=== PATIENT | male | born 1945 | race African-American/Black ===

== ENCOUNTER 2019-08-14 11:26 | Inpatient (IN) | payer MEDICARE, MEDICAID ==
[2019-08-14] VITALS (15 sets, daily range): BP systolic 108–167; BP diastolic 77–107
[~2019-08-14] VITALS: Ht 180.3 cm; Wt 70.4 kg
[~2019-08-14 11:26] MED LIST: FURO-152 PO; METH5TAB2 PO
[2019-08-14] MEDS ORDERED: VANCOMYCIN 1 G PREMIX 200 ML IV ONE (12:00)
[2019-08-14] MEDS ORDERED: PIPERACILLIN/TAZ 3.375G PREMIX 50 ML IV ONE (12:00)
[2019-08-14 12:41] LABS: BG BASE EXCESS 5.4 mmol/L (-2.0-2.0); BG CARBOXYHEMOGLOBIN 0.2 % (0.5-1.5); BG DEOXYHEMOGLOBIN 19.3 % (0.0-5.0); BG FRACTION INSPIRED OXYGEN 28; BG HCO3 ACT 26.7 mmol/L (22.0-26.0); BG METHEMOGLOBIN 0.1 % (0.0-1.5); BG OXYGEN SATURATION 80.6 % (92.0-98.5); BG OXYHEMOGLOBIN 80.4 % (94.0-97.0); BG PCO2 29.1 mmHg (35.0-45.0); BG SAMPLE SITE RIGHT RADIAL; BG VENT MODE NASAL CANNULA
[2019-08-14] MEDS ORDERED: PROPOFOL 10MG/ML 100ML 100 ML IV SCH (13:00)
[2019-08-14] MEDS ORDERED: SUCCINYLCHOLINE CHLORIDE 200MG/10ML IV ONE (13:00)
[2019-08-14] MEDS ORDERED: ETOMIDATE 2MG/ML 10ML VIAL IV ONE (13:00)
[2019-08-14 13:16] LABS: CHLORIDE 109 mEq/L (98-107)
[2019-08-14 13:55] LABS: HEMATOCRIT. 44.8 % (42.0-52.0); HEMOGLOBIN. 15.2 g/dL (14.0-18.0); MEAN CORPUSCULAR HEMOGLOBIN 34.6 pg (28.0-32.0); MEAN CORPUSCULAR VOLUME 101.7 fL (80.0-94.0); RED BLOOD CELL COUNT 4.41 mill/uL (4.7-6.1); RED CELL DISTRIBUTION WIDTH 14.5 % (11.6-14.6)
[2019-08-14 14:00] LABS: PLATELET 178 x1000/uL (130-400)
[2019-08-14] MEDS ORDERED: MAGNESIUM 1 G PREMIX 100 ML IV ONE (14:00)
[2019-08-14] MEDS ORDERED: KCL 20MEQ/100ML PREMIX 100 ML IV ONE (14:00)
[2019-08-14] MEDS ORDERED: SODIUM CHLORIDE 0.9% 1000ML BAG (SEPSIS BOLUS) IV ONE (14:00)
[2019-08-14 14:01] LABS: MEAN PLATELET VOLUME 9.6 fl (7.4-10.4)
[2019-08-14 14:13] LABS: BG BASE EXCESS 1.5 mmol/L (-2.0-2.0); BG CARBOXYHEMOGLOBIN 0.1 % (0.5-1.5); BG DEOXYHEMOGLOBIN 9.7 % (0.0-5.0); BG FRACTION INSPIRED OXYGEN 60; BG HCO3 ACT 24.1 mmol/L (22.0-26.0); BG METHEMOGLOBIN 0.2 % (0.0-1.5); BG OXYGEN SATURATION 90.3 % (92.0-98.5); BG PCO2 31.8 mmHg (35.0-45.0); BG PH 7.497 (7.350-7.450); BG PO2 61.9 mmHg (75.0-100.0); BG SAMPLE SITE RIGHT BRACHIAL; BG TIDAL VOLUME(mL) 500 mL; BG TOTAL HEMOGLOBIN 13.5 g/dL (12.0-18.0); BG VENT MODE VENT - A/C; BG VENT RATE 16 set
[2019-08-14 14:14] LABS: PLATELET ESTIMATE NORMAL
[2019-08-14] MEDS ORDERED: METOCLOPRAMIDE HCL 10MG/2ML VIAL IV PRN (14:30)
[2019-08-14] MEDS ORDERED: POTASSIUM CHLORIDE 20MEQ TABLET SR PO NR (14:30)
[2019-08-14] MEDS ORDERED: FUROSEMIDE 40MG/4ML VIAL IVP SCH (14:30)
[2019-08-14 15:10] LABS: BG BASE EXCESS 0.4 mmol/L (-2.0-2.0); BG CARBOXYHEMOGLOBIN 0.3 % (0.5-1.5); BG DEOXYHEMOGLOBIN 2.2 % (0.0-5.0); BG FRACTION INSPIRED OXYGEN 100; BG HCO3 ACT 23.5 mmol/L (22.0-26.0); BG METHEMOGLOBIN 0.1 % (0.0-1.5); BG OXYGEN SATURATION 97.8 % (92.0-98.5); BG OXYHEMOGLOBIN 97.4 % (94.0-97.0); BG PCO2 32.9 mmHg (35.0-45.0); BG PH 7.471 (7.350-7.450); BG PO2 108.6 mmHg (75.0-100.0); BG SAMPLE SITE RIGHT BRACHIAL; BG TIDAL VOLUME(mL) 500 mL; BG TOTAL HEMOGLOBIN 12.5 g/dL (12.0-18.0); BG VENT MODE VENT - A/C; BG VENT RATE 18 set
[2019-08-14 15:24] LABS: CLARITY URINE CLEAR (CLEAR); COLOR URINE YELLOW (YELLOW); KETONES URINE NEGATIVE (NEGATIVE); LEUKOCYTE ESTERASE URINE 1+ (NEGATIVE); NITRITE URINE NEGATIVE (NEGATIVE); OCCULT BLOOD URINE 3+ (NEGATIVE); PROTEIN URINE 2+ (NEGATIVE); SPECIFIC GRAVITY URINE 1.021 (1.005-1.030)
[2019-08-14] MEDS: ASCORBIC ACID 500 MG TABLET PO SCH ×2 (15:30→21:57)
[2019-08-14] MEDS ORDERED: THIAMINE HCL 100MG TABLET PO SCH (17:00)
[2019-08-14] MEDS ORDERED: POTASSIUM CHLORIDE INJ 40 MEQ in DEXT 5% WATER 250 ML IV NR (18:00)
[2019-08-14] MEDS ORDERED: DIVA500T3 MT (20:58)
[2019-08-14] MEDS ORDERED: METH-611 MT (20:58)
[2019-08-14] MEDS ORDERED: SERT25TA MT (20:58)
[2019-08-14] MEDS ORDERED: ERGO2000 MT (20:58)
[2019-08-14] MEDS ORDERED: KEPP500 MT (20:58)
[2019-08-14] MEDS ORDERED: PROT40 MT (20:58)
[2019-08-14] MEDS ORDERED: DOCU250C69 MT (20:58)
[2019-08-14] MEDS ORDERED: QUET25TA MT (20:58)
[2019-08-14] MEDS ORDERED: ENOXAPARIN 40MG/0.4ML SYR SUBCUT SCH (21:00)
[2019-08-14] MEDS ORDERED: PROPOFOL 10MG/ML 100ML 100 ML IV PRN (21:00)
[2019-08-14] MEDS ORDERED: LEVETIRACETAM 500 MG in SODIUM CHLORIDE 0.9% 100 ML IV SCH (21:30)
[2019-08-14] MEDS ORDERED: AZITHROMYCIN 500 MG TABLET PO SCH (21:30)
[2019-08-14] MEDS: METHYLPREDNISOLONE SOD SUCC 40 MG/ML VIAL IV SCH (21:56)
[2019-08-14] MEDS: THIAMINE HCL 100MG TABLET PO SCH (21:56)
[2019-08-14] MEDS: LEVETIRACETAM 500MG PREMIX 100 ML IV SCH (22:06)
[2019-08-14] MEDS ORDERED: DEXT 5% WATER + KCL 20MEQ/L 1,000 ML IV SCH (22:30)
[2019-08-14] MEDS ORDERED: CEFTRIAXONE 1,000 MG in DEXTROSE 5% WATER 50 ML IV SCH (23:00)
[2019-08-15] VITALS (100 sets, daily range): BP systolic 91–180; BP diastolic 66–131
[2019-08-15] MEDS: HYDROXYCHLOROQUINE SULFATE 200MG TABLET PO SCH ×3 (00:03→21:48)
[2019-08-15 07:12] LABS: CHLORIDE 111 mEq/L (98-107)
[2019-08-15] MEDS: PANTOPRAZOLE SODIUM 40 MG/VIAL IV SCH (08:19)
[2019-08-15] MEDS: METHYLPREDNISOLONE SOD SUCC 40 MG/ML VIAL IV SCH ×2 (08:20→21:48)
[2019-08-15] MEDS: LEVETIRACETAM 500MG PREMIX 100 ML IV SCH ×2 (08:20→21:48)
[2019-08-15] MEDS: ENOXAPARIN 40MG/0.4ML SYR SUBCUT SCH (08:20)
[2019-08-15] MEDS: ASCORBIC ACID 500 MG TABLET PO SCH (08:21)
[2019-08-15] MEDS: THIAMINE HCL 100MG TABLET PO SCH ×2 (08:21→17:49)
[2019-08-15] MEDS: ZINC SULFATE 220 MG ( 50 ) CAPSULE PO SCH (08:21)
[2019-08-15] MEDS ORDERED: ZINC SULFATE 220 MG ( 50 ) CAPSULE PO SCH (09:00)
[2019-08-15] MEDS ORDERED: POTASSIUM CHLORIDE 20MEQ/PACKET PO NR (09:45)
[2019-08-15] MEDS ORDERED: PROPOFOL 10MG/ML 100ML 100 ML IV PRN (09:45)
[2019-08-15 09:46] LABS: BG BASE EXCESS 1.8 mmol/L (-2.0-2.0); BG CARBOXYHEMOGLOBIN 0.2 % (0.5-1.5); BG DEOXYHEMOGLOBIN 1.2 % (0.0-5.0); BG FRACTION INSPIRED OXYGEN 100; BG HCO3 ACT 24.7 mmol/L (22.0-26.0); BG METHEMOGLOBIN 0.3 % (0.0-1.5); BG OXYGEN SATURATION 98.8 % (92.0-98.5); BG OXYHEMOGLOBIN 98.3 % (94.0-97.0); BG PCO2 32.6 mmHg (35.0-45.0); BG PH 7.497 (7.350-7.450); BG PO2 162.1 mmHg (75.0-100.0); BG SAMPLE SITE RIGHT RADIAL; BG TIDAL VOLUME(mL) 500 mL; BG TOTAL HEMOGLOBIN 11.2 g/dL (12.0-18.0); BG VENT MODE VENT - A/C; BG VENT RATE 18 set
[2019-08-15 10:08] LABS: HEMATOCRIT. 31.7 % (42.0-52.0); HEMOGLOBIN. 10.6 g/dL (14.0-18.0); MEAN CORPUSCULAR HEMOGLOBIN 35.4 pg (28.0-32.0); MEAN PLATELET VOLUME 9.8 fl (7.4-10.4); PLATELET 135 x1000/uL (130-400); RED BLOOD CELL COUNT 2.99 mill/uL (4.7-6.1); RED CELL DISTRIBUTION WIDTH 14.7 % (11.6-14.6)
[2019-08-15 10:47] LABS: D-DIMER 3.52 mg/L FEU (<0.50); INR 1.3; PARTIAL THROMBOPLASTIN TIME 42.9 sec (23.4-31.0); PROTHROMBIN TIME 13.9 sec (9.6-11.0)
[2019-08-15] MEDS ORDERED: POTASSIUM CHLORIDE 20MEQ/PACKET PO SCH ×2 (11:15→17:00)
[2019-08-15 11:53] LABS: PLATELET ESTIMATE NORMAL
[2019-08-15] MEDS: CEFTRIAXONE 1,000 MG in DEXTROSE 5% WATER 50 ML IV SCH (17:49)
[2019-08-15] MEDS: METOPROLOL TARTRATE 25MG TABLET PO SCH (21:43)
[2019-08-15] MEDS ORDERED: DEXT 5% WATER + KCL 20MEQ/L 1,000 ML IV SCH (22:30)
[2019-08-15] MEDS: CLONIDINE 0.1MG TABLET PO PRN (22:47)
[2019-08-16] VITALS (97 sets, daily range): BP systolic 79–186; BP diastolic 51–131
[2019-08-16] MEDS: ACETAMINOPHEN 325MG TABLET PO PRN ×2 (03:02→16:28)
[2019-08-16] MEDS: CLONIDINE 0.1MG TABLET PO PRN (04:54)
[2019-08-16] MEDS: PROPOFOL 10MG/ML 100ML 100 ML IV PRN ×3 (05:11→18:30)
[2019-08-16 06:24] LABS: CHLORIDE 107 mEq/L (98-107)
[2019-08-16 06:33] LABS: PHOSPHORUS 4.3 mg/dL (2.5-4.9)
[2019-08-16 07:32] LABS: HEMATOCRIT. 35.5 % (42.0-52.0); HEMOGLOBIN. 12.3 g/dL (14.0-18.0); MEAN CORPUSCULAR HEMOGLOBIN 36.1 pg (28.0-32.0); PLATELET 266 x1000/uL (130-400); RED BLOOD CELL COUNT 3.41 mill/uL (4.7-6.1); RED CELL DISTRIBUTION WIDTH 14.9 % (11.6-14.6)
[2019-08-16] MEDS: LEVETIRACETAM 500MG PREMIX 100 ML IV SCH ×2 (08:31→21:03)
[2019-08-16] MEDS: METHYLPREDNISOLONE SOD SUCC 40 MG/ML VIAL IV SCH ×2 (08:32→21:03)
[2019-08-16] MEDS: PANTOPRAZOLE SODIUM 40 MG/VIAL IV SCH (08:32)
[2019-08-16] MEDS: HYDROXYCHLOROQUINE SULFATE 200MG TABLET PO SCH ×2 (08:33→16:28)
[2019-08-16] MEDS: METOPROLOL TARTRATE 25MG TABLET PO SCH ×2 (08:33→21:04)
[2019-08-16] MEDS: ZINC SULFATE 220 MG ( 50 ) CAPSULE PO SCH (08:34)
[2019-08-16] MEDS: ASCORBIC ACID 500 MG TABLET PO SCH (08:34)
[2019-08-16] MEDS: THIAMINE HCL 100MG TABLET PO SCH ×2 (08:34→16:28)
[2019-08-16] MEDS: LISINOPRIL 20MG TABLET PO SCH ×2 (08:35→21:04)
[2019-08-16] MEDS: ENOXAPARIN 40MG/0.4ML SYR SUBCUT SCH (08:35)
[2019-08-16 08:54] LABS: BG BASE EXCESS -6.9 mmol/L (-2.0-2.0); BG CARBOXYHEMOGLOBIN 0.2 % (0.5-1.5); BG DEOXYHEMOGLOBIN 0.3 % (0.0-5.0); BG HCO3 ACT 16.6 mmol/L (22.0-26.0); BG OXYGEN SATURATION 99.7 % (92.0-98.5); BG OXYHEMOGLOBIN 99.5 % (94.0-97.0); BG PCO2 28.3 mmHg (35.0-45.0); BG PH 7.387 (7.350-7.450); BG SAMPLE SITE RIGHT RADIAL; BG TIDAL VOLUME(mL) 500 mL; BG TOTAL HEMOGLOBIN 13.3 g/dL (12.0-18.0); BG VENT MODE VENT - A/C; BG VENT RATE 14 set
[2019-08-16] MEDS ORDERED: AMLODIPINE 5MG TABLET PO SCH (09:00)
[2019-08-16] MEDS: HYDRALAZINE 20MG/ML VIAL IV PRN (10:39)
[2019-08-16] MEDS: SODIUM CHLORIDE 0.45% 1,000 ML IV SCH (10:40)
[2019-08-16 11:55] LABS: PLATELET ESTIMATE NORMAL
[2019-08-16] MEDS: AMLODIPINE 5MG TABLET NG SCH (16:30)
[2019-08-16] MEDS: CEFTRIAXONE 1,000 MG in DEXTROSE 5% WATER 50 ML IV SCH (17:00)
[2019-08-17] VITALS (94 sets, daily range): BP systolic 92–168; BP diastolic 51–113
[2019-08-17] MEDS: SODIUM CHLORIDE 0.45% 1,000 ML IV SCH ×2 (00:41→09:19)
[2019-08-17] MEDS: PROPOFOL 10MG/ML 100ML 100 ML IV PRN ×4 (00:48→20:42)
[2019-08-17 06:48] LABS: HEMATOCRIT. 35.8 % (42.0-52.0); HEMOGLOBIN. 11.8 g/dL (14.0-18.0); MEAN CORPUSCULAR HEMOGLOBIN 33.2 pg (28.0-32.0); MEAN CORPUSCULAR VOLUME 100.3 fL (80.0-94.0); PLATELET 195 x1000/uL (130-400); RED BLOOD CELL COUNT 3.57 mill/uL (4.7-6.1); RED CELL DISTRIBUTION WIDTH 14.9 % (11.6-14.6)
[2019-08-17] MEDS: HYDRALAZINE 20MG/ML VIAL IV PRN (07:30)
[2019-08-17] MEDS: HYDROXYCHLOROQUINE SULFATE 200MG TABLET PO SCH ×2 (09:14→17:31)
[2019-08-17] MEDS: METHYLPREDNISOLONE SOD SUCC 40 MG/ML VIAL IV SCH ×2 (09:14→21:17)
[2019-08-17] MEDS: ASCORBIC ACID 500 MG TABLET PO SCH (09:14)
[2019-08-17] MEDS: ZINC SULFATE 220 MG ( 50 ) CAPSULE PO SCH (09:14)
[2019-08-17] MEDS: PANTOPRAZOLE SODIUM 40 MG/VIAL IV SCH (09:14)
[2019-08-17] MEDS: THIAMINE HCL 100MG TABLET PO SCH ×2 (09:15→17:31)
[2019-08-17] MEDS: ENOXAPARIN 40MG/0.4ML SYR SUBCUT SCH (09:16)
[2019-08-17] MEDS: AMLODIPINE 5MG TABLET NG SCH ×2 (09:16→17:00)
[2019-08-17] MEDS: METOPROLOL TARTRATE 25MG TABLET PO SCH ×2 (09:17→21:00)
[2019-08-17] MEDS: LEVETIRACETAM 500MG PREMIX 100 ML IV SCH ×2 (09:19→21:17)
[2019-08-17 09:51] LABS: PLATELET ESTIMATE NORMAL
[2019-08-17 10:13] LABS: BG BASE EXCESS -5.9 mmol/L (-2.0-2.0); BG CARBOXYHEMOGLOBIN 0.3 % (0.5-1.5); BG DEOXYHEMOGLOBIN 0.7 % (0.0-5.0); BG FRACTION INSPIRED OXYGEN 60; BG HCO3 ACT 18.5 mmol/L (22.0-26.0); BG METHEMOGLOBIN 0.1 % (0.0-1.5); BG OXYGEN SATURATION 99.3 % (92.0-98.5); BG OXYHEMOGLOBIN 98.9 % (94.0-97.0); BG PCO2 32.8 mmHg (35.0-45.0); BG PH 7.368 (7.350-7.450); BG PO2 278.7 mmHg (75.0-100.0); BG SAMPLE SITE RIGHT RADIAL; BG TIDAL VOLUME(mL) 500 mL; BG TOTAL HEMOGLOBIN 12.5 g/dL (12.0-18.0); BG VENT MODE VENT - A/C; BG VENT RATE 14 set
[2019-08-17] MEDS: HYDRALAZINE HCL 50MG TABLET PO SCH ×2 (14:00→22:00)
[2019-08-17 17:25] LABS: COVID-19 PCR RNA DETECTED
[2019-08-17 17:27] LABS: COVID-19 PCR RNA NOT DETECTED
[2019-08-17] MEDS: CEFTRIAXONE 1,000 MG in DEXTROSE 5% WATER 50 ML IV SCH (17:31)
[2019-08-18] VITALS (93 sets, daily range): BP systolic 99–146; BP diastolic 55–87
[2019-08-18] MEDS: SODIUM CHLORIDE 0.45% 1,000 ML IV SCH ×2 (02:01→13:20)
[2019-08-18] MEDS: PROPOFOL 10MG/ML 100ML 100 ML IV PRN (05:00)
[2019-08-18] MEDS: HYDRALAZINE HCL 50MG TABLET PO SCH ×3 (06:00→21:01)
[2019-08-18 06:11] LABS: HEMATOCRIT. 35.6 % (42.0-52.0); MEAN CORPUSCULAR HEMOGLOBIN 33.6 pg (28.0-32.0); MEAN CORPUSCULAR VOLUME 99.8 fL (80.0-94.0); PLATELET 184 x1000/uL (130-400); RED BLOOD CELL COUNT 3.57 mill/uL (4.7-6.1)
[2019-08-18 08:00] LABS: PLATELET ESTIMATE NORMAL
[2019-08-18 08:08] LABS: BG BASE EXCESS -8.8 mmol/L (-2.0-2.0); BG CARBOXYHEMOGLOBIN 0.3 % (0.5-1.5); BG DEOXYHEMOGLOBIN 2.2 % (0.0-5.0); BG FRACTION INSPIRED OXYGEN 35; BG HCO3 ACT 17.8 mmol/L (22.0-26.0); BG METHEMOGLOBIN 0.1 % (0.0-1.5); BG OXYGEN SATURATION 97.8 % (92.0-98.5); BG OXYHEMOGLOBIN 97.4 % (94.0-97.0); BG PCO2 40.7 mmHg (35.0-45.0); BG PH 7.258 (7.350-7.450); BG PO2 128.2 mmHg (75.0-100.0); BG SAMPLE SITE RIGHT RADIAL; BG TIDAL VOLUME(mL) 450 mL; BG TOTAL HEMOGLOBIN 13.3 g/dL (12.0-18.0); BG VENT MODE VENT - A/C; BG VENT RATE 18 set
[2019-08-18] MEDS: HYDROXYCHLOROQUINE SULFATE 200MG TABLET PO SCH ×2 (08:39→17:05)
[2019-08-18] MEDS: METHYLPREDNISOLONE SOD SUCC 40 MG/ML VIAL IV SCH (08:39)
[2019-08-18] MEDS: ZINC SULFATE 220 MG ( 50 ) CAPSULE PO SCH (08:39)
[2019-08-18] MEDS: ASCORBIC ACID 500 MG TABLET PO SCH (08:39)
[2019-08-18] MEDS: PANTOPRAZOLE SODIUM 40 MG/VIAL IV SCH (08:39)
[2019-08-18] MEDS: METOPROLOL TARTRATE 25MG TABLET PO SCH ×2 (08:40→21:01)
[2019-08-18] MEDS: THIAMINE HCL 100MG TABLET PO SCH ×2 (08:40→17:05)
[2019-08-18] MEDS: ENOXAPARIN 30MG/0.3ML SYR SUBCUT SCH (08:40)
[2019-08-18] MEDS: AMLODIPINE 5MG TABLET NG SCH ×2 (08:40→17:05)
[2019-08-18] MEDS: LEVETIRACETAM 500MG PREMIX 100 ML IV SCH ×2 (08:46→21:01)
[2019-08-18] MEDS ORDERED: SODIUM BICARBONATE 8.4% 1 MEQ/ML 50ML SYR IV NR (09:15)
[2019-08-18] MEDS ORDERED: ALBUMIN HUMAN 12.5G/250ML (5%) IV NR (09:30)
[2019-08-18] MEDS ORDERED: PROPOFOL 10MG/ML 100ML 100 ML IV PRN (10:15)
[2019-08-18] MEDS: CEFTRIAXONE 1,000 MG in DEXTROSE 5% WATER 50 ML IV SCH (17:05)
[2019-08-19] VITALS (92 sets, daily range): BP systolic 76–126; BP diastolic 43–80
[2019-08-19] MEDS: SODIUM CHLORIDE 0.45% 1,000 ML IV SCH (01:58)
[2019-08-19] MEDS: HYDRALAZINE HCL 50MG TABLET PO SCH (05:24)
[2019-08-19 07:18] LABS: HEMATOCRIT. 32.5 % (42.0-52.0); HEMOGLOBIN. 11.7 g/dL (14.0-18.0); MEAN CORPUSCULAR HEMOGLOBIN 37.6 pg (28.0-32.0); MEAN CORPUSCULAR VOLUME 104.6 fL (80.0-94.0); MEAN PLATELET VOLUME 10.6 fl (7.4-10.4); PLATELET 188 x1000/uL (130-400); RED CELL DISTRIBUTION WIDTH 14.8 % (11.6-14.6)
[2019-08-19] MEDS: PANTOPRAZOLE SODIUM 40 MG/VIAL IV SCH (08:01)
[2019-08-19] MEDS: LEVETIRACETAM 500MG PREMIX 100 ML IV SCH ×2 (08:01→20:49)
[2019-08-19] MEDS: THIAMINE HCL 100MG TABLET PO SCH ×2 (08:03→17:08)
[2019-08-19] MEDS: ENOXAPARIN 30MG/0.3ML SYR SUBCUT SCH (08:03)
[2019-08-19] MEDS: HYDROXYCHLOROQUINE SULFATE 200MG TABLET PO SCH (08:03)
[2019-08-19] MEDS: ASCORBIC ACID 500 MG TABLET PO SCH (08:03)
[2019-08-19] MEDS: ZINC SULFATE 220 MG ( 50 ) CAPSULE PO SCH (08:03)
[2019-08-19] MEDS: AMLODIPINE 5MG TABLET NG SCH (08:08)
[2019-08-19] MEDS: METOPROLOL TARTRATE 25MG TABLET PO SCH (08:09)
[2019-08-19 08:29] LABS: BG BASE EXCESS -3.2 mmol/L (-2.0-2.0); BG CARBOXYHEMOGLOBIN 0.3 % (0.5-1.5); BG DEOXYHEMOGLOBIN 2.2 % (0.0-5.0); BG FRACTION INSPIRED OXYGEN 35; BG HCO3 ACT 20.9 mmol/L (22.0-26.0); BG METHEMOGLOBIN 0.1 % (0.0-1.5); BG OXYGEN SATURATION 97.8 % (92.0-98.5); BG OXYHEMOGLOBIN 97.4 % (94.0-97.0); BG PCO2 34.4 mmHg (35.0-45.0); BG PH 7.401 (7.350-7.450); BG PO2 118.3 mmHg (75.0-100.0); BG SAMPLE SITE RIGHT RADIAL; BG TIDAL VOLUME(mL) 450 mL; BG TOTAL HEMOGLOBIN 13.6 g/dL (12.0-18.0); BG VENT MODE VENT - A/C; BG VENT RATE 18 set
[2019-08-19] MEDS: FENTANYL CITRATE/PF 500 MCG in SODIUM CHLORIDE 0.9% 40 ML IV PRN ×2 (09:00→20:50)
[2019-08-19] MEDS ORDERED: ALBUMIN HUMAN 12.5G/250ML (5%) IV NR (12:00)
[2019-08-19 14:12] LABS: PLATELET ESTIMATE NORMAL
[2019-08-19] MEDS: CEFTRIAXONE 1,000 MG in DEXTROSE 5% WATER 50 ML IV SCH (17:08)
[2019-08-20] VITALS (60 sets, daily range): BP systolic 86–159; BP diastolic 51–90
[2019-08-20] MEDS ORDERED: METOPROLOL TARTRATE 5MG/5ML VIAL IV NR (03:30)
[2019-08-20 05:43] LABS: BASOPHILS % 0.3 % (0.0-2.0); EOSINOPHILS % 0.1 % (0.0-5.0); HEMATOCRIT. 30.7 % (42.0-52.0); HEMOGLOBIN. 11.3 g/dL (14.0-18.0); LYMPHOCYTES % 7.9 % (20.0-50.0); MEAN CORPUSCULAR HEMOGLOBIN 38.7 pg (28.0-32.0); MEAN CORPUSCULAR VOLUME 105.3 fL (80.0-94.0); MONOCYTES % 9.2 % (2.0-8.0); NEUTROPHILS % 82.5 % (40.0-76.0); PLATELET 208 x1000/uL (130-400); RED BLOOD CELL COUNT 2.92 mill/uL (4.7-6.1); RED CELL DISTRIBUTION WIDTH 14.7 % (11.6-14.6)
[2019-08-20] MEDS: METOPROLOL TARTRATE 5MG/5ML VIAL IV SCH ×3 (06:40→22:38)
[2019-08-20 08:18] LABS: BG BASE EXCESS -0.7 mmol/L (-2.0-2.0); BG CARBOXYHEMOGLOBIN 0.3 % (0.5-1.5); BG DEOXYHEMOGLOBIN 1.5 % (0.0-5.0); BG HCO3 ACT 22.6 mmol/L (22.0-26.0); BG METHEMOGLOBIN 0.3 % (0.0-1.5); BG OXYGEN SATURATION 98.5 % (92.0-98.5); BG OXYHEMOGLOBIN 97.9 % (94.0-97.0); BG PCO2 32.4 mmHg (35.0-45.0); BG PH 7.462 (7.350-7.450); BG PO2 140.9 mmHg (75.0-100.0); BG SAMPLE SITE RIGHT RADIAL; BG TIDAL VOLUME(mL) 450 mL; BG TOTAL HEMOGLOBIN 10.1 g/dL (12.0-18.0); BG VENT MODE VENT - A/C; BG VENT RATE 18 set
[2019-08-20] MEDS: LEVETIRACETAM 500MG PREMIX 100 ML IV SCH ×2 (08:59→22:00)
[2019-08-20] MEDS: THIAMINE HCL 100MG TABLET PO SCH ×2 (09:00→16:12)
[2019-08-20] MEDS: ASCORBIC ACID 500 MG TABLET PO SCH (09:00)
[2019-08-20] MEDS: PANTOPRAZOLE SODIUM 40 MG/VIAL IV SCH (09:00)
[2019-08-20] MEDS: ZINC SULFATE 220 MG ( 50 ) CAPSULE PO SCH (09:00)
[2019-08-20] MEDS: ENOXAPARIN 30MG/0.3ML SYR SUBCUT SCH (09:01)
[2019-08-20] MEDS: FENTANYL CITRATE/PF 500 MCG in SODIUM CHLORIDE 0.9% 40 ML IV PRN (10:49)
[2019-08-20 20:58] LABS: BG BASE EXCESS -0.5 mmol/L (-2.0-2.0); BG CARBOXYHEMOGLOBIN 0.3 % (0.5-1.5); BG DEOXYHEMOGLOBIN 3.4 % (0.0-5.0); BG FRACTION INSPIRED OXYGEN 35; BG HCO3 ACT 22.3 mmol/L (22.0-26.0); BG METHEMOGLOBIN 1.2 % (0.0-1.5); BG OXYGEN SATURATION 96.5 % (92.0-98.5); BG OXYHEMOGLOBIN 95.1 % (94.0-97.0); BG PCO2 30.4 mmHg (35.0-45.0); BG PH 7.484 (7.350-7.450); BG PO2 99.7 mmHg (75.0-100.0); BG PRESSURE SUPPORT 12; BG SAMPLE SITE RIGHT RADIAL; BG TIDAL VOLUME(mL) 450 mL; BG TOTAL HEMOGLOBIN 10.6 g/dL (12.0-18.0); BG VENT MODE VENT - SIMV; BG VENT RATE 10 set
[2019-08-21] VITALS (88 sets, daily range): BP systolic 98–169; BP diastolic 59–119
[2019-08-21] MEDS: HYDRALAZINE 20MG/ML VIAL IV PRN ×2 (00:05→16:46)
[2019-08-21] MEDS: FENTANYL CITRATE/PF 500 MCG in SODIUM CHLORIDE 0.9% 40 ML IV PRN ×2 (05:33→13:41)
[2019-08-21] MEDS: METOPROLOL TARTRATE 5MG/5ML VIAL IV SCH ×3 (06:05→22:57)
[2019-08-21] MEDS: ZINC SULFATE 220 MG ( 50 ) CAPSULE PO SCH (08:51)
[2019-08-21] MEDS: THIAMINE HCL 100MG TABLET PO SCH ×2 (08:51→16:46)
[2019-08-21] MEDS: ASCORBIC ACID 500 MG TABLET PO SCH (08:51)
[2019-08-21] MEDS: ENOXAPARIN 30MG/0.3ML SYR SUBCUT SCH (08:52)
[2019-08-21] MEDS: PANTOPRAZOLE SODIUM 40 MG/VIAL IV SCH (08:52)
[2019-08-21] MEDS: LEVETIRACETAM 500MG PREMIX 100 ML IV SCH ×2 (08:52→21:19)
[2019-08-21 09:35] LABS: BG BASE EXCESS -2.3 mmol/L (-2.0-2.0); BG CARBOXYHEMOGLOBIN 0.3 % (0.5-1.5); BG DEOXYHEMOGLOBIN 1.4 % (0.0-5.0); BG FRACTION INSPIRED OXYGEN 35; BG HCO3 ACT 20.9 mmol/L (22.0-26.0); BG METHEMOGLOBIN 0.2 % (0.0-1.5); BG OXYGEN SATURATION 98.6 % (92.0-98.5); BG OXYHEMOGLOBIN 98.1 % (94.0-97.0); BG PCO2 30.6 mmHg (35.0-45.0); BG PH 7.452 (7.350-7.450); BG PO2 140.4 mmHg (75.0-100.0); BG SAMPLE SITE RIGHT RADIAL; BG TIDAL VOLUME(mL) 450 mL; BG TOTAL HEMOGLOBIN 11.2 g/dL (12.0-18.0); BG VENT MODE VENT - A/C; BG VENT RATE 18 set
[2019-08-21] MEDS ORDERED: POTASSIUM CHLORIDE 20MEQ TABLET SR PO SCH (11:00)
[2019-08-22] VITALS (96 sets, daily range): BP systolic 99–167; BP diastolic 61–103
[2019-08-22] MEDS: FENTANYL CITRATE/PF 500 MCG in SODIUM CHLORIDE 0.9% 40 ML IV PRN (01:11)
[2019-08-22] MEDS: METOPROLOL TARTRATE 5MG/5ML VIAL IV SCH ×3 (05:42→21:22)
[2019-08-22 05:52] LABS: BASOPHILS % 0.1 % (0.0-2.0); EOSINOPHILS % 0.6 % (0.0-5.0); HEMATOCRIT. 27.9 % (42.0-52.0); HEMOGLOBIN. 10.1 g/dL (14.0-18.0); LYMPHOCYTES % 7.6 % (20.0-50.0); MEAN CORPUSCULAR HEMOGLOBIN 38.4 pg (28.0-32.0); MEAN CORPUSCULAR VOLUME 106.4 fL (80.0-94.0); MEAN PLATELET VOLUME 10.6 fl (7.4-10.4); MONOCYTES % 5.9 % (2.0-8.0); NEUTROPHILS % 85.8 % (40.0-76.0); PLATELET 90 x1000/uL (130-400); RED BLOOD CELL COUNT 2.62 mill/uL (4.7-6.1); RED CELL DISTRIBUTION WIDTH 14.7 % (11.6-14.6)
[2019-08-22] MEDS: PANTOPRAZOLE SODIUM 40 MG/VIAL IV SCH (08:28)
[2019-08-22] MEDS: ASCORBIC ACID 500 MG TABLET PO SCH (08:28)
[2019-08-22] MEDS: ZINC SULFATE 220 MG ( 50 ) CAPSULE PO SCH (08:28)
[2019-08-22] MEDS: LEVETIRACETAM 500MG PREMIX 100 ML IV SCH ×2 (08:28→21:21)
[2019-08-22] MEDS: THIAMINE HCL 100MG TABLET PO SCH ×2 (08:28→17:22)
[2019-08-22 10:06] LABS: BG BASE EXCESS -1.9 mmol/L (-2.0-2.0); BG CARBOXYHEMOGLOBIN 0.3 % (0.5-1.5); BG DEOXYHEMOGLOBIN 1.2 % (0.0-5.0); BG FRACTION INSPIRED OXYGEN 35; BG HCO3 ACT 20.8 mmol/L (22.0-26.0); BG METHEMOGLOBIN 0.3 % (0.0-1.5); BG OXYGEN SATURATION 98.8 % (92.0-98.5); BG OXYHEMOGLOBIN 98.2 % (94.0-97.0); BG PCO2 28.6 mmHg (35.0-45.0); BG PO2 149.9 mmHg (75.0-100.0); BG PRESSURE SUPPORT 12; BG SAMPLE SITE RIGHT RADIAL; BG TIDAL VOLUME(mL) 500 mL; BG TOTAL HEMOGLOBIN 10.3 g/dL (12.0-18.0); BG VENT MODE VENT - SIMV; BG VENT RATE 8 set
[2019-08-22] MEDS: ENOXAPARIN 30MG/0.3ML SYR SUBCUT SCH (11:44)
[2019-08-22 15:48] LABS: BG BASE EXCESS -1.9 mmol/L (-2.0-2.0); BG CARBOXYHEMOGLOBIN 0.3 % (0.5-1.5); BG DEOXYHEMOGLOBIN 2.6 % (0.0-5.0); BG FRACTION INSPIRED OXYGEN 30; BG HCO3 ACT 20.1 mmol/L (22.0-26.0); BG METHEMOGLOBIN 0.3 % (0.0-1.5); BG OXYGEN SATURATION 97.4 % (92.0-98.5); BG OXYHEMOGLOBIN 96.8 % (94.0-97.0); BG PCO2 26.6 mmHg (35.0-45.0); BG PH 7.497 (7.350-7.450); BG PO2 100.3 mmHg (75.0-100.0); BG PRESSURE SUPPORT 8; BG SAMPLE SITE RIGHT RADIAL; BG TOTAL HEMOGLOBIN 11.5 g/dL (12.0-18.0); BG VENT MODE VENT - CPAP
[2019-08-22] MEDS: SODIUM CHLORIDE 0.45% 1,000 ML IV SCH (17:26)
[2019-08-23] VITALS (68 sets, daily range): BP systolic 115–172; BP diastolic 64–101
[2019-08-23] MEDS: HYDRALAZINE 20MG/ML VIAL IV PRN (00:20)
[2019-08-23] MEDS: METOPROLOL TARTRATE 5MG/5ML VIAL IV SCH ×3 (06:46→21:35)
[2019-08-23 06:58] LABS: HEMATOCRIT. 29.8 % (42.0-52.0); HEMOGLOBIN. 10.4 g/dL (14.0-18.0); MEAN CORPUSCULAR HEMOGLOBIN 36.6 pg (28.0-32.0); MEAN CORPUSCULAR VOLUME 104.6 fL (80.0-94.0); MEAN PLATELET VOLUME 11.7 fl (7.4-10.4); PLATELET 103 x1000/uL (130-400); RED BLOOD CELL COUNT 2.85 mill/uL (4.7-6.1); RED CELL DISTRIBUTION WIDTH 15.4 % (11.6-14.6)
[2019-08-23] MEDS: SODIUM CHLORIDE 0.45% 1,000 ML IV SCH (08:18)
[2019-08-23] MEDS: LEVETIRACETAM 500MG PREMIX 100 ML IV SCH ×2 (09:00→20:48)
[2019-08-23] MEDS: ENOXAPARIN 30MG/0.3ML SYR SUBCUT SCH (09:01)
[2019-08-23] MEDS: PANTOPRAZOLE SODIUM 40 MG/VIAL IV SCH (09:02)
[2019-08-23] MEDS: THIAMINE HCL 100MG TABLET PO SCH ×2 (09:03→16:56)
[2019-08-23] MEDS: ASCORBIC ACID 500 MG TABLET PO SCH (09:03)
[2019-08-23] MEDS: ZINC SULFATE 220 MG ( 50 ) CAPSULE PO SCH (09:03)
[2019-08-23 09:33] LABS: PLATELET ESTIMATE SLIGHTLY DECREASED
[2019-08-24] VITALS (52 sets, daily range): BP systolic 111–197; BP diastolic 63–126
[2019-08-24] MEDS: METOPROLOL TARTRATE 5MG/5ML VIAL IV SCH (06:02)
[2019-08-24 06:24] LABS: HEMOGLOBIN. 10.2 g/dL (14.0-18.0); MEAN CORPUSCULAR HEMOGLOBIN 36.7 pg (28.0-32.0); MEAN CORPUSCULAR VOLUME 104.9 fL (80.0-94.0); MEAN PLATELET VOLUME 11.8 fl (7.4-10.4); PLATELET 95 x1000/uL (130-400); RED BLOOD CELL COUNT 2.77 mill/uL (4.7-6.1)
[2019-08-24] MEDS: ASCORBIC ACID 500 MG TABLET PO SCH (09:50)
[2019-08-24] MEDS: PANTOPRAZOLE SODIUM 40 MG/VIAL IV SCH (09:50)
[2019-08-24] MEDS: THIAMINE HCL 100MG TABLET PO SCH ×2 (09:50→17:00)
[2019-08-24] MEDS: ENOXAPARIN 30MG/0.3ML SYR SUBCUT SCH (09:51)
[2019-08-24] MEDS: ACETAMINOPHEN 325MG TABLET PO PRN (09:52)
[2019-08-24] MEDS: ZINC SULFATE 220 MG ( 50 ) CAPSULE PO SCH (10:01)
[2019-08-24] MEDS: LEVETIRACETAM 500MG PREMIX 100 ML IV SCH ×2 (10:05→20:34)
[2019-08-24 10:09] LABS: NUCLEATED RED BLOOD CELLS 1 /100 WBC; PLATELET ESTIMATE DECREASED
[2019-08-24] MEDS ORDERED: METOPROLOL TARTRATE 5MG/5ML VIAL IV PRN (15:00)
[2019-08-24] MEDS: CLONIDINE 0.1MG TABLET PO PRN (17:18)
[2019-08-24] MEDS: METOPROLOL TARTRATE 25MG TABLET PO SCH (19:13)
[2019-08-24] MEDS: HYDRALAZINE 20MG/ML VIAL IV PRN (20:34)
[2019-08-25] VITALS (11 sets, daily range): BP systolic 126–154; BP diastolic 78–91
[2019-08-25 06:37] LABS: BASOPHILS % 0.4 % (0.0-2.0); HEMATOCRIT. 32.1 % (42.0-52.0); HEMOGLOBIN. 10.9 g/dL (14.0-18.0); LYMPHOCYTES % 8.6 % (20.0-50.0); MEAN CORPUSCULAR HEMOGLOBIN 35.3 pg (28.0-32.0); MEAN CORPUSCULAR VOLUME 104.1 fL (80.0-94.0); MEAN PLATELET VOLUME 11.4 fl (7.4-10.4); MONOCYTES % 7.3 % (2.0-8.0); NEUTROPHILS % 83.7 % (40.0-76.0); PLATELET 88 x1000/uL (130-400); RED BLOOD CELL COUNT 3.09 mill/uL (4.7-6.1); RED CELL DISTRIBUTION WIDTH 16.1 % (11.6-14.6)
[2019-08-25] MEDS: ENOXAPARIN 30MG/0.3ML SYR SUBCUT SCH (09:00)
[2019-08-25] MEDS: ASCORBIC ACID 500 MG TABLET PO SCH (09:12)
[2019-08-25] MEDS: THIAMINE HCL 100MG TABLET PO SCH ×2 (09:12→16:48)
[2019-08-25] MEDS: METOPROLOL TARTRATE 25MG TABLET PO SCH ×2 (09:12→21:43)
[2019-08-25] MEDS: ZINC SULFATE 220 MG ( 50 ) CAPSULE PO SCH (09:12)
[2019-08-25] MEDS: PANTOPRAZOLE SODIUM 40 MG/VIAL IV SCH (09:12)
[2019-08-25] MEDS: LEVETIRACETAM 500MG PREMIX 100 ML IV SCH ×2 (09:14→21:42)
[2019-08-25 22:03] LABS: BASOPHILS % 0.5 % (0.0-2.0); EOSINOPHILS % 0.1 % (0.0-5.0); HEMATOCRIT. 32.3 % (42.0-52.0); HEMOGLOBIN. 10.8 g/dL (14.0-18.0); LYMPHOCYTES % 7.9 % (20.0-50.0); MEAN CORPUSCULAR HEMOGLOBIN 35.2 pg (28.0-32.0); MEAN CORPUSCULAR VOLUME 105.1 fL (80.0-94.0); MEAN PLATELET VOLUME 11.8 fl (7.4-10.4); MONOCYTES % 6.8 % (2.0-8.0); NEUTROPHILS % 84.7 % (40.0-76.0); PLATELET 84 x1000/uL (130-400); RED BLOOD CELL COUNT 3.08 mill/uL (4.7-6.1); RED CELL DISTRIBUTION WIDTH 16.5 % (11.6-14.6)
[2019-08-26] VITALS: BP 150/87
[2019-08-26 04:00] VITALS: BP 146/92
[2019-08-26 08:00] VITALS: BP 139/81
[2019-08-26] MEDS: ENOXAPARIN 30MG/0.3ML SYR SUBCUT SCH (09:00)
[2019-08-26] MEDS: ZINC SULFATE 220 MG ( 50 ) CAPSULE PO SCH (09:45)
[2019-08-26] MEDS: PANTOPRAZOLE SODIUM 40 MG/VIAL IV SCH (09:45)
[2019-08-26] MEDS: LEVETIRACETAM 500MG PREMIX 100 ML IV SCH ×2 (09:45→21:45)
[2019-08-26] MEDS: METOPROLOL TARTRATE 25MG TABLET PO SCH ×2 (09:45→21:44)
[2019-08-26] MEDS: ASCORBIC ACID 500 MG TABLET PO SCH (09:45)
[2019-08-26 12:00] VITALS: BP_SYST 119; BP_SYST 138; BP_DIAS 81; BP_DIAS 89
[2019-08-26 20:00] VITALS: BP 118/70
[2019-08-27] VITALS: BP 124/58
[2019-08-27 04:00] VITALS: BP 150/90
[2019-08-27] MEDS: ASCORBIC ACID 500 MG TABLET PO SCH (10:16)
[2019-08-27] MEDS: ZINC SULFATE 220 MG ( 50 ) CAPSULE PO SCH (10:16)
[2019-08-27] MEDS: LEVETIRACETAM 500MG PREMIX 100 ML IV SCH ×2 (10:16→20:53)
[2019-08-27] MEDS: PANTOPRAZOLE SODIUM 40 MG/VIAL IV SCH (10:17)
[2019-08-27] MEDS: ENOXAPARIN 30MG/0.3ML SYR SUBCUT SCH (10:17)
[2019-08-27] MEDS: METOPROLOL TARTRATE 25MG TABLET PO SCH ×2 (10:20→20:49)
[2019-08-27 12:00] VITALS: BP 135/79
[2019-08-27 13:11] LABS: BASOPHILS % 0.4 % (0.0-2.0); EOSINOPHILS % 0.1 % (0.0-5.0); HEMATOCRIT. 29.9 % (42.0-52.0); HEMOGLOBIN. 10.1 g/dL (14.0-18.0); LYMPHOCYTES % 10.6 % (20.0-50.0); MEAN CORPUSCULAR HEMOGLOBIN 35.3 pg (28.0-32.0); MEAN CORPUSCULAR VOLUME 104.7 fL (80.0-94.0); MEAN PLATELET VOLUME 12.4 fl (7.4-10.4); MONOCYTES % 6.5 % (2.0-8.0); NEUTROPHILS % 82.4 % (40.0-76.0); PLATELET 67 x1000/uL (130-400); RED BLOOD CELL COUNT 2.86 mill/uL (4.7-6.1); RED CELL DISTRIBUTION WIDTH 17.6 % (11.6-14.6)
[2019-08-27 16:00] VITALS: BP 168/91
[2019-08-27] MEDS: HYDRALAZINE 20MG/ML VIAL IV PRN (17:02)
[2019-08-27 20:45] VITALS: BP 107/67
[2019-08-28 00:17] VITALS: BP 111/66
[2019-08-28 04:00] VITALS: BP 135/84
[2019-08-28 08:00] VITALS: BP 124/78
[2019-08-28] MEDS: ASCORBIC ACID 500 MG TABLET PO SCH (09:32)
[2019-08-28] MEDS: ZINC SULFATE 220 MG ( 50 ) CAPSULE PO SCH (09:32)
[2019-08-28] MEDS: LEVETIRACETAM 500MG PREMIX 100 ML IV SCH ×2 (09:33→20:54)
[2019-08-28] MEDS: PANTOPRAZOLE SODIUM 40 MG/VIAL IV SCH (09:33)
[2019-08-28] MEDS: METOPROLOL TARTRATE 25MG TABLET PO SCH ×2 (09:33→20:54)
[2019-08-28] MEDS: LACTULOSE 20G/30ML UDC PO SCH ×2 (14:00→21:06)
[2019-08-28 16:00] VITALS: BP 132/78
[2019-08-28 20:00] VITALS: BP 159/89
[2019-08-29] VITALS (7 sets, daily range): BP systolic 128–176; BP diastolic 71–99
[2019-08-29] MEDS: LACTULOSE 20G/30ML UDC PO SCH ×3 (05:33→21:19)
[2019-08-29] MEDS: DEXTROSE 5% WATER 1,000 ML IV SCH ×2 (05:37→23:47)
[2019-08-29] MEDS: METOPROLOL TARTRATE 25MG TABLET PO SCH ×2 (09:00→21:19)
[2019-08-29] MEDS: ZINC SULFATE 220 MG ( 50 ) CAPSULE PO SCH (09:00)
[2019-08-29] MEDS: ASCORBIC ACID 500 MG TABLET PO SCH (09:00)
[2019-08-29] MEDS: PANTOPRAZOLE SODIUM 40 MG/VIAL IV SCH (09:04)
[2019-08-29] MEDS: LEVETIRACETAM 500MG PREMIX 100 ML IV SCH ×2 (09:11→21:19)
[2019-08-29 09:50] LABS: BASOPHILS % 0.7 % (0.0-2.0); EOSINOPHILS % 1.7 % (0.0-5.0); HEMATOCRIT. 33.9 % (42.0-52.0); HEMOGLOBIN. 11.1 g/dL (14.0-18.0); LYMPHOCYTES % 12.9 % (20.0-50.0); MEAN CORPUSCULAR HEMOGLOBIN 34.8 pg (28.0-32.0); MEAN CORPUSCULAR VOLUME 106.5 fL (80.0-94.0); MEAN PLATELET VOLUME 11.7 fl (7.4-10.4); MONOCYTES % 3.8 % (2.0-8.0); NEUTROPHILS % 80.9 % (40.0-76.0); PLATELET 59 x1000/uL (130-400); RED BLOOD CELL COUNT 3.19 mill/uL (4.7-6.1); RED CELL DISTRIBUTION WIDTH 18.3 % (11.6-14.6)
[2019-08-29 10:27] LABS: PLATELET ESTIMATE DECREASED
[2019-08-29] MEDS ORDERED: IPRATROPIUM/ALBUTEROL 0.5-3(2.5)MG/3ML NEB HHN PRN (12:45)
[2019-08-29] MEDS ORDERED: PIPERACILLIN/TAZOBACTAM 3.375 G in DEXT 5% WATER 100 ML IV SCH (12:45)
[2019-08-29] MEDS: PIPERACILLIN/TAZOBACTAM 2.25 G in DEXTROSE 5% WATER 50 ML IV SCH ×2 (15:19→21:24)
[2019-08-29] MEDS: ACETYLCYSTEINE 100MG/ML 10% VIAL 4ML INH SCH (17:01)
[2019-08-29] MEDS: IPRATROPIUM/ALBUTEROL 0.5-3(2.5)MG/3ML NEB HHN SCH (17:01)
[2019-08-29] MEDS: HYDRALAZINE 20MG/ML VIAL IV PRN (23:47)
[2019-08-30] MEDS: ACETYLCYSTEINE 100MG/ML 10% VIAL 4ML INH SCH ×4 (01:02→21:46)
[2019-08-30] MEDS: IPRATROPIUM/ALBUTEROL 0.5-3(2.5)MG/3ML NEB HHN SCH ×4 (01:02→21:47)
[2019-08-30] MEDS: PIPERACILLIN/TAZOBACTAM 2.25 G in DEXTROSE 5% WATER 50 ML IV SCH ×4 (01:35→20:09)
[2019-08-30 04:00] VITALS: BP 159/88
[2019-08-30] MEDS: LACTULOSE 20G/30ML UDC PO SCH ×3 (05:20→21:02)
[2019-08-30 08:00] VITALS: BP 127/68
[2019-08-30] MEDS: PANTOPRAZOLE SODIUM 40 MG/VIAL IV SCH (08:36)
[2019-08-30] MEDS: LEVETIRACETAM 500MG PREMIX 100 ML IV SCH ×2 (08:36→20:09)
[2019-08-30] MEDS: METOPROLOL TARTRATE 25MG TABLET PO SCH ×2 (08:36→21:02)
[2019-08-30] MEDS: ZINC SULFATE 220 MG ( 50 ) CAPSULE PO SCH (08:36)
[2019-08-30] MEDS: ASCORBIC ACID 500 MG TABLET PO SCH (08:36)
[2019-08-30 11:55] LABS: BASOPHILS % 1.3 % (0.0-2.0); EOSINOPHILS % 2.8 % (0.0-5.0); HEMATOCRIT. 29.7 % (42.0-52.0); HEMOGLOBIN. 9.8 g/dL (14.0-18.0); LYMPHOCYTES % 16.2 % (20.0-50.0); MEAN CORPUSCULAR HEMOGLOBIN 34.2 pg (28.0-32.0); MEAN CORPUSCULAR VOLUME 103.9 fL (80.0-94.0); MEAN PLATELET VOLUME 11.7 fl (7.4-10.4); MONOCYTES % 5.7 % (2.0-8.0); PLATELET 53 x1000/uL (130-400); RED BLOOD CELL COUNT 2.86 mill/uL (4.7-6.1); RED CELL DISTRIBUTION WIDTH 18.5 % (11.6-14.6)
[2019-08-30 12:00] VITALS: BP 134/81
[2019-08-30 16:00] VITALS: BP 157/79
[2019-08-30 20:00] VITALS: BP 124/73
[2019-08-30] MEDS: DEXTROSE 5% WATER 1,000 ML IV SCH (21:03)
[2019-08-31] VITALS: BP 139/84
[2019-08-31] MEDS: PIPERACILLIN/TAZOBACTAM 2.25 G in DEXTROSE 5% WATER 50 ML IV SCH ×4 (01:51→20:17)
[2019-08-31 04:00] VITALS: BP 136/75
[2019-08-31] MEDS: LACTULOSE 20G/30ML UDC PO SCH ×3 (05:15→18:00)
[2019-08-31] MEDS: ACETYLCYSTEINE 100MG/ML 10% VIAL 4ML INH SCH ×3 (07:40→23:40)
[2019-08-31] MEDS: IPRATROPIUM/ALBUTEROL 0.5-3(2.5)MG/3ML NEB HHN SCH ×3 (07:40→23:40)
[2019-08-31 08:00] VITALS: BP 151/79
[2019-08-31 08:41] LABS: BASOPHILS % 0.8 % (0.0-2.0); EOSINOPHILS % 4.2 % (0.0-5.0); HEMATOCRIT. 33.2 % (42.0-52.0); LYMPHOCYTES % 12.3 % (20.0-50.0); MEAN CORPUSCULAR VOLUME 105.6 fL (80.0-94.0); MEAN PLATELET VOLUME 11.6 fl (7.4-10.4); MONOCYTES % 3.7 % (2.0-8.0); RED BLOOD CELL COUNT 3.14 mill/uL (4.7-6.1); RED CELL DISTRIBUTION WIDTH 17.8 % (11.6-14.6)
[2019-08-31] MEDS: ASCORBIC ACID 500 MG TABLET PO SCH (09:12)
[2019-08-31] MEDS: ZINC SULFATE 220 MG ( 50 ) CAPSULE PO SCH (09:12)
[2019-08-31] MEDS: METOPROLOL TARTRATE 25MG TABLET PO SCH ×2 (09:12→20:18)
[2019-08-31] MEDS: LEVETIRACETAM 500MG PREMIX 100 ML IV SCH ×2 (09:17→20:17)
[2019-08-31] MEDS: PANTOPRAZOLE SODIUM 40 MG/VIAL IV SCH (09:17)
[2019-08-31 09:33] LABS: PLATELET 43 x1000/uL (130-400)
[2019-08-31 12:00] VITALS: BP 144/87
[2019-08-31 13:01] LABS: T4 FREE 1.58 ng/dL (0.76-1.46)
[2019-08-31 14:36] LABS: VITAMIN B12 SERUM >2000 pg/mL pg/mL (211-911)
[2019-08-31 16:00] VITALS: BP 139/89
[2019-08-31 20:00] VITALS: BP 152/89
[2019-08-31] MEDS ORDERED: LORAZEPAM 2MG/ML CPJ IV NR (20:30)
[2019-08-31] MEDS: DEXTROSE 5% WATER 1,000 ML IV SCH (22:18)
[2019-09-01] VITALS: BP 122/79
[2019-09-01] MEDS: LACTULOSE 20G/30ML UDC PO SCH ×6 (00:58→23:03)
[2019-09-01] MEDS: PIPERACILLIN/TAZOBACTAM 2.25 G in DEXTROSE 5% WATER 50 ML IV SCH ×2 (01:02→08:37)
[2019-09-01 04:00] VITALS: BP 132/76
[2019-09-01] MEDS: ACETYLCYSTEINE 100MG/ML 10% VIAL 4ML INH SCH ×3 (07:47→14:42)
[2019-09-01] MEDS: IPRATROPIUM/ALBUTEROL 0.5-3(2.5)MG/3ML NEB HHN SCH ×2 (07:49→14:42)
[2019-09-01 08:00] VITALS: BP 131/84
[2019-09-01] MEDS: PANTOPRAZOLE SODIUM 40 MG/VIAL IV SCH (08:37)
[2019-09-01 10:29] LABS: BG BASE EXCESS -6.9 mmol/L (-2.0-2.0); BG CARBOXYHEMOGLOBIN 0.3 % (0.5-1.5); BG DEOXYHEMOGLOBIN 6.5 % (0.0-5.0); BG FRACTION INSPIRED OXYGEN 28; BG HCO3 ACT 16.6 mmol/L (22.0-26.0); BG METHEMOGLOBIN 0.2 % (0.0-1.5); BG OXYGEN SATURATION 93.5 % (92.0-98.5); BG PH 7.407 (7.350-7.450); BG PO2 75.8 mmHg (75.0-100.0); BG SAMPLE SITE RIGHT RADIAL; BG TOTAL HEMOGLOBIN 10.4 g/dL (12.0-18.0); BG VENT MODE NASAL CANNULA
[2019-09-01 10:51] LABS: HEMOGLOBIN. 9.6 g/dL (14.0-18.0); MEAN CORPUSCULAR HEMOGLOBIN 34.5 pg (28.0-32.0); MEAN PLATELET VOLUME 11.8 fl (7.4-10.4); RED BLOOD CELL COUNT 2.79 mill/uL (4.7-6.1); RED CELL DISTRIBUTION WIDTH 17.8 % (11.6-14.6)
[2019-09-01] MEDS: LEVETIRACETAM 500MG PREMIX 100 ML IV SCH (10:58)
[2019-09-01 11:03] LABS: PHOSPHORUS 6.6 mg/dL (2.5-4.9)
[2019-09-01 11:06] LABS: PLATELET 34 x1000/uL (130-400)
[2019-09-01] MEDS ORDERED: POTASSIUM CHLORIDE 20MEQ TABLET SR PO SCH (11:15)
[2019-09-01 12:00] VITALS: BP 140/83
[2019-09-01 12:19] LABS: PLATELET ESTIMATE MARKEDLY DECREASED
[2019-09-01] MEDS: ASCORBIC ACID 500 MG TABLET PO SCH (12:40)
[2019-09-01] MEDS: ZINC SULFATE 220 MG ( 50 ) CAPSULE PO SCH (12:40)
[2019-09-01] MEDS: CEFEPIME 1,000 MG in DEXTROSE 5% WATER 50 ML IV SCH (12:41)
[2019-09-01] MEDS: METRONIDAZOLE 500MG TABLET PO SCH ×2 (14:10→21:04)
[2019-09-01] MEDS: RIFAXIMIN 550 MG TABLET NG SCH ×2 (14:10→21:03)
[2019-09-01 18:30] VITALS: BP 150/80
[2019-09-01 20:00] VITALS: BP 118/82
[2019-09-01] MEDS: METOPROLOL TARTRATE 25MG TABLET PO SCH (21:03)
[2019-09-01] MEDS: DEXTROSE 5% WATER 1,000 ML IV SCH (23:03)
[2019-09-02] VITALS: BP 156/86
[2019-09-02] MEDS: IPRATROPIUM/ALBUTEROL 0.5-3(2.5)MG/3ML NEB HHN SCH ×2 (00:20→21:11)
[2019-09-02 04:00] VITALS: BP 144/89
[2019-09-02] MEDS: LACTULOSE 20G/30ML UDC PO SCH ×3 (05:45→20:47)
[2019-09-02] MEDS: METRONIDAZOLE 500MG TABLET PO SCH ×3 (05:48→21:07)
[2019-09-02 07:00] LABS: BASOPHILS % 0.9 % (0.0-2.0); EOSINOPHILS % 5.8 % (0.0-5.0); HEMATOCRIT. 36.6 % (42.0-52.0); LYMPHOCYTES % 19.2 % (20.0-50.0); MEAN CORPUSCULAR HEMOGLOBIN 34.4 pg (28.0-32.0); MEAN CORPUSCULAR VOLUME 105.2 fL (80.0-94.0); MEAN PLATELET VOLUME 11.9 fl (7.4-10.4); MONOCYTES % 2.3 % (2.0-8.0); NEUTROPHILS % 71.8 % (40.0-76.0); RED BLOOD CELL COUNT 3.48 mill/uL (4.7-6.1); RED CELL DISTRIBUTION WIDTH 18.7 % (11.6-14.6)
[2019-09-02 07:03] LABS: INR 1.2; PROTHROMBIN TIME 13.1 sec (9.6-11.0)
[2019-09-02 07:07] LABS: PLATELET 38 x1000/uL (130-400)
[2019-09-02 08:00] VITALS: BP 139/77
[2019-09-02] MEDS: ASCORBIC ACID 500 MG TABLET PO SCH (09:12)
[2019-09-02] MEDS: ZINC SULFATE 220 MG ( 50 ) CAPSULE PO SCH (09:12)
[2019-09-02] MEDS: RIFAXIMIN 550 MG TABLET NG SCH ×2 (09:12→20:47)
[2019-09-02] MEDS: PANTOPRAZOLE SODIUM 40 MG/VIAL IV SCH (09:13)
[2019-09-02] MEDS: METOPROLOL TARTRATE 25MG TABLET PO SCH ×2 (09:13→20:48)
[2019-09-02 12:00] VITALS: BP 142/73
[2019-09-02] MEDS: SODIUM CHLORIDE 45ML SPRAY NS SCH ×3 (12:00→18:02)
[2019-09-02] MEDS: LANTHANUM CARBONATE 500MG CHEW TABLET PO SCH ×2 (12:45→18:02)
[2019-09-02] MEDS: CEFEPIME 1,000 MG in DEXTROSE 5% WATER 50 ML IV SCH (12:45)
[2019-09-02] MEDS: CITRIC ACID/SODIUM CITRATE SOLN 30ML UDC PO SCH ×3 (12:45→23:59)
[2019-09-02 16:00] VITALS: BP 126/100
[2019-09-02] MEDS: CLONIDINE 0.1MG TABLET PO PRN (18:02)
[2019-09-02 20:00] VITALS: BP 130/85
[2019-09-03] VITALS: BP_SYST 138; BP_SYST 142; BP_DIAS 72; BP_DIAS 73
[2019-09-03] MEDS: IPRATROPIUM/ALBUTEROL 0.5-3(2.5)MG/3ML NEB HHN SCH ×2 (00:40→09:17)
[2019-09-03 04:00] VITALS: BP 142/72
[2019-09-03] MEDS: METRONIDAZOLE 500MG TABLET PO SCH ×3 (05:13→21:06)
[2019-09-03] MEDS: SODIUM CHLORIDE 45ML SPRAY NS SCH ×4 (05:14→18:53)
[2019-09-03] MEDS: CITRIC ACID/SODIUM CITRATE SOLN 30ML UDC PO SCH ×3 (05:18→17:40)
[2019-09-03 07:08] LABS: BASOPHILS % 1.1 % (0.0-2.0); EOSINOPHILS % 6.4 % (0.0-5.0); HEMATOCRIT. 33.7 % (42.0-52.0); HEMOGLOBIN. 11.1 g/dL (14.0-18.0); LYMPHOCYTES % 16.1 % (20.0-50.0); MEAN CORPUSCULAR HEMOGLOBIN 34.8 pg (28.0-32.0); MEAN CORPUSCULAR VOLUME 105.7 fL (80.0-94.0); MEAN PLATELET VOLUME 11.7 fl (7.4-10.4); MONOCYTES % 4.1 % (2.0-8.0); NEUTROPHILS % 72.3 % (40.0-76.0); RED BLOOD CELL COUNT 3.19 mill/uL (4.7-6.1)
[2019-09-03 07:17] LABS: PLATELET 32 x1000/uL (130-400)
[2019-09-03 07:31] LABS: PHOSPHORUS 4.7 mg/dL (2.5-4.9)
[2019-09-03 08:00] VITALS: BP 142/82
[2019-09-03 08:33] LABS: BG BASE EXCESS -6.9 mmol/L (-2.0-2.0); BG CARBOXYHEMOGLOBIN 0.3 % (0.5-1.5); BG DEOXYHEMOGLOBIN 5.6 % (0.0-5.0); BG HCO3 ACT 15.3 mmol/L (22.0-26.0); BG METHEMOGLOBIN 0.3 % (0.0-1.5); BG OXYGEN SATURATION 94.4 % (92.0-98.5); BG OXYHEMOGLOBIN 93.8 % (94.0-97.0); BG PO2 77.6 mmHg (75.0-100.0); BG SAMPLE SITE RIGHT BRACHIAL; BG TOTAL HEMOGLOBIN 10.9 g/dL (12.0-18.0); BG VENT MODE NASAL CANNULA
[2019-09-03] MEDS: ACETYLCYSTEINE 100MG/ML 10% VIAL 4ML INH SCH (09:18)
[2019-09-03] MEDS ORDERED: SODIUM BICARBONATE 8.4% 1 MEQ/ML 50ML SYR IV SCH (10:30)
[2019-09-03] MEDS: ZINC SULFATE 220 MG ( 50 ) CAPSULE PO SCH (10:31)
[2019-09-03] MEDS: LACTULOSE 20G/30ML UDC PO SCH ×2 (10:31→21:05)
[2019-09-03] MEDS: RIFAXIMIN 550 MG TABLET NG SCH ×2 (10:31→21:05)
[2019-09-03] MEDS: LANTHANUM CARBONATE 500MG CHEW TABLET PO SCH ×3 (10:31→17:40)
[2019-09-03] MEDS: ASCORBIC ACID 500 MG TABLET PO SCH (10:31)
[2019-09-03] MEDS: METOPROLOL TARTRATE 25MG TABLET PO SCH ×2 (10:33→21:05)
[2019-09-03] MEDS: PANTOPRAZOLE SODIUM 40 MG/VIAL IV SCH (10:36)
[2019-09-03 12:00] VITALS: BP 135/80
[2019-09-03] MEDS ORDERED: SODIUM BICARBONATE 100 MEQ in DEXTROSE 5% WATER 1,000 ML IV SCH (12:00)
[2019-09-03] MEDS: CEFEPIME 1,000 MG in DEXTROSE 5% WATER 50 ML IV SCH (13:18)
[2019-09-03 16:00] VITALS: BP 156/93
[2019-09-03 20:00] VITALS: BP_SYST 159; BP_SYST 160; BP_DIAS 86; BP_DIAS 94
[2019-09-04] VITALS: BP 153/84
[2019-09-04] MEDS: IPRATROPIUM/ALBUTEROL 0.5-3(2.5)MG/3ML NEB HHN SCH ×2 (00:41→16:06)
[2019-09-04] MEDS: CITRIC ACID/SODIUM CITRATE SOLN 30ML UDC PO SCH ×4 (01:06→18:18)
[2019-09-04] MEDS: SODIUM CHLORIDE 45ML SPRAY NS SCH ×4 (01:07→18:00)
[2019-09-04 04:00] VITALS: BP 135/94
[2019-09-04] MEDS: LACTULOSE 20G/30ML UDC PO SCH ×3 (06:09→21:57)
[2019-09-04] MEDS: METRONIDAZOLE 500MG TABLET PO SCH ×3 (06:10→22:02)
[2019-09-04 06:38] LABS: BASOPHILS % 0.4 % (0.0-2.0); HEMOGLOBIN. 10.3 g/dL (14.0-18.0); MEAN CORPUSCULAR HEMOGLOBIN 35.5 pg (28.0-32.0); MEAN CORPUSCULAR VOLUME 103.4 fL (80.0-94.0); MEAN PLATELET VOLUME 11.9 fl (7.4-10.4); MONOCYTES % 5.3 % (2.0-8.0); NEUTROPHILS % 74.3 % (40.0-76.0); RED CELL DISTRIBUTION WIDTH 18.3 % (11.6-14.6)
[2019-09-04 06:45] LABS: CHLORIDE 122 mEq/L (98-107)
[2019-09-04 06:55] LABS: PHOSPHORUS 4.2 mg/dL (2.5-4.9)
[2019-09-04 08:00] VITALS: BP 144/91
[2019-09-04] MEDS ORDERED: POTASSIUM CHLORIDE INJ 60 MEQ in DEXT 5% WATER 500 ML IV NR (08:30)
[2019-09-04] MEDS: ASCORBIC ACID 500 MG TABLET PO SCH (09:00)
[2019-09-04] MEDS: LANTHANUM CARBONATE 500MG CHEW TABLET PO SCH ×3 (09:52→18:18)
[2019-09-04] MEDS: ZINC SULFATE 220 MG ( 50 ) CAPSULE PO SCH (09:52)
[2019-09-04] MEDS: RIFAXIMIN 550 MG TABLET NG SCH ×2 (09:52→21:57)
[2019-09-04] MEDS: PANTOPRAZOLE SODIUM 40 MG/VIAL IV SCH (09:52)
[2019-09-04] MEDS: METOPROLOL TARTRATE 25MG TABLET PO SCH ×2 (09:53→21:58)
[2019-09-04] MEDS: POTASSIUM CHLORIDE 20MEQ/PACKET PO SCH (09:53)
[2019-09-04 12:00] VITALS: BP 154/89
[2019-09-04] MEDS: CEFEPIME 1,000 MG in DEXTROSE 5% WATER 50 ML IV SCH (14:21)
[2019-09-04 16:00] VITALS: BP 163/93
[2019-09-04] MEDS: DEXTROSE 5% WATER 1,000 ML IV SCH (18:18)
[2019-09-04 20:00] VITALS: BP 146/88
[2019-09-05] VITALS (9 sets, daily range): BP systolic 102–132; BP diastolic 63–81
[2019-09-05] MEDS: CITRIC ACID/SODIUM CITRATE SOLN 30ML UDC PO SCH ×4 (00:43→18:46)
[2019-09-05] MEDS: SODIUM CHLORIDE 45ML SPRAY NS SCH ×4 (00:43→18:45)
[2019-09-05] MEDS: IPRATROPIUM/ALBUTEROL 0.5-3(2.5)MG/3ML NEB HHN SCH ×4 (01:54→20:11)
[2019-09-05] MEDS: LACTULOSE 20G/30ML UDC PO SCH ×3 (05:52→21:15)
[2019-09-05] MEDS: LANTHANUM CARBONATE 500MG CHEW TABLET PO SCH ×3 (05:53→18:46)
[2019-09-05] MEDS: METRONIDAZOLE 500MG TABLET PO SCH ×3 (05:53→21:15)
[2019-09-05 06:34] LABS: BASOPHILS % 0.7 % (0.0-2.0); EOSINOPHILS % 5.4 % (0.0-5.0); HEMATOCRIT. 26.9 % (42.0-52.0); HEMOGLOBIN. 9.2 g/dL (14.0-18.0); LYMPHOCYTES % 20.6 % (20.0-50.0); MEAN CORPUSCULAR HEMOGLOBIN 34.8 pg (28.0-32.0); MEAN CORPUSCULAR VOLUME 102.3 fL (80.0-94.0); MEAN PLATELET VOLUME 10.2 fl (7.4-10.4); MONOCYTES % 7.3 % (2.0-8.0); RED BLOOD CELL COUNT 2.63 mill/uL (4.7-6.1); RED CELL DISTRIBUTION WIDTH 18.3 % (11.6-14.6)
[2019-09-05 06:44] LABS: PLATELET 18 x1000/uL (130-400)
[2019-09-05 06:46] LABS: CHLORIDE 124 mEq/L (98-107)
[2019-09-05 06:52] LABS: PHOSPHORUS 3.9 mg/dL (2.5-4.9)
[2019-09-05] MEDS: RIFAXIMIN 550 MG TABLET NG SCH ×2 (09:52→21:13)
[2019-09-05] MEDS: ASCORBIC ACID 500 MG TABLET PO SCH (09:52)
[2019-09-05] MEDS: PANTOPRAZOLE SODIUM 40 MG/VIAL IV SCH (09:52)
[2019-09-05] MEDS: POTASSIUM CHLORIDE 20MEQ/PACKET PO SCH (09:53)
[2019-09-05] MEDS: ZINC SULFATE 220 MG ( 50 ) CAPSULE PO SCH (09:53)
[2019-09-05] MEDS: METOPROLOL TARTRATE 25MG TABLET PO SCH ×2 (09:53→21:13)
[2019-09-05] MEDS: CEFEPIME 1,000 MG in DEXTROSE 5% WATER 50 ML IV SCH (13:12)
[2019-09-05 13:59] LABS: PLATELET 24 x1000/uL (130-400)
[2019-09-05] MEDS: DEXTROSE 5% WATER 1,000 ML IV SCH (19:58)
[2019-09-06] VITALS: BP 129/69
[2019-09-06] MEDS: CITRIC ACID/SODIUM CITRATE SOLN 30ML UDC PO SCH ×4 (00:44→17:45)
[2019-09-06] MEDS: SODIUM CHLORIDE 45ML SPRAY NS SCH ×4 (00:45→17:48)
[2019-09-06 04:00] VITALS: BP 118/77
[2019-09-06] MEDS: METRONIDAZOLE 500MG TABLET PO SCH ×3 (06:44→21:34)
[2019-09-06] MEDS: LACTULOSE 20G/30ML UDC PO SCH ×3 (06:48→21:34)
[2019-09-06] MEDS: LANTHANUM CARBONATE 500MG CHEW TABLET PO SCH ×3 (06:54→17:45)
[2019-09-06 06:56] LABS: BASOPHILS % 0.4 % (0.0-2.0); EOSINOPHILS % 6.8 % (0.0-5.0); HEMATOCRIT. 27.1 % (42.0-52.0); HEMOGLOBIN. 9.1 g/dL (14.0-18.0); LYMPHOCYTES % 21.1 % (20.0-50.0); MEAN CORPUSCULAR HEMOGLOBIN 34.7 pg (28.0-32.0); MEAN CORPUSCULAR VOLUME 103.4 fL (80.0-94.0); MEAN PLATELET VOLUME 11.6 fl (7.4-10.4); NEUTROPHILS % 64.7 % (40.0-76.0); RED BLOOD CELL COUNT 2.62 mill/uL (4.7-6.1); RED CELL DISTRIBUTION WIDTH 19.1 % (11.6-14.6)
[2019-09-06] MEDS: DEXTROSE 5% WATER 1,000 ML IV SCH ×3 (07:08→19:33)
[2019-09-06] MEDS: IPRATROPIUM/ALBUTEROL 0.5-3(2.5)MG/3ML NEB HHN SCH ×2 (07:27→16:46)
[2019-09-06 07:30] LABS: PLATELET 32 x1000/uL (130-400)
[2019-09-06 08:00] VITALS: BP 124/76
[2019-09-06 08:13] LABS: PHOSPHORUS 4.2 mg/dL (2.5-4.9)
[2019-09-06] MEDS: ASCORBIC ACID 500 MG TABLET PO SCH (09:46)
[2019-09-06] MEDS: POTASSIUM CHLORIDE 20MEQ/PACKET PO SCH (09:46)
[2019-09-06] MEDS: RIFAXIMIN 550 MG TABLET NG SCH ×2 (09:46→21:34)
[2019-09-06] MEDS: ZINC SULFATE 220 MG ( 50 ) CAPSULE PO SCH (09:46)
[2019-09-06 12:00] VITALS: BP 135/86
[2019-09-06] MEDS: CEFEPIME 1,000 MG in DEXTROSE 5% WATER 50 ML IV SCH (12:04)
[2019-09-06] MEDS: METOPROLOL TARTRATE 25MG TABLET PO SCH ×2 (12:06→21:34)
[2019-09-06] MEDS: PANTOPRAZOLE SODIUM 40 MG/VIAL IV SCH (12:07)
[2019-09-06 16:00] VITALS: BP 153/78
[2019-09-06 20:00] VITALS: BP 145/85
[2019-09-07] VITALS: BP 134/92
[2019-09-07] MEDS: CITRIC ACID/SODIUM CITRATE SOLN 30ML UDC PO SCH ×4 (00:09→17:38)
[2019-09-07] MEDS: SODIUM CHLORIDE 45ML SPRAY NS SCH ×4 (00:09→17:39)
[2019-09-07] MEDS: IPRATROPIUM/ALBUTEROL 0.5-3(2.5)MG/3ML NEB HHN SCH ×4 (00:19→20:34)
[2019-09-07 04:00] VITALS: BP 139/79
[2019-09-07] MEDS: METRONIDAZOLE 500MG TABLET PO SCH ×3 (06:08→21:37)
[2019-09-07] MEDS: LACTULOSE 20G/30ML UDC PO SCH ×3 (06:09→21:35)
[2019-09-07] MEDS: DEXTROSE 5% WATER 1,000 ML IV SCH ×2 (06:15→17:40)
[2019-09-07 08:00] VITALS: BP 120/83
[2019-09-07 08:41] LABS: HAPTOGLOBIN 32 mg/dL (30-200)
[2019-09-07] MEDS ORDERED: FUROSEMIDE 40MG/4ML VIAL IVP NR (09:45)
[2019-09-07 09:49] LABS: BASOPHILS % 1.9 % (0.0-2.0); EOSINOPHILS % 8.3 % (0.0-5.0); HEMATOCRIT. 27.3 % (42.0-52.0); HEMOGLOBIN. 9.1 g/dL (14.0-18.0); LYMPHOCYTES % 22.4 % (20.0-50.0); MEAN CORPUSCULAR HEMOGLOBIN 34.8 pg (28.0-32.0); MEAN PLATELET VOLUME 12.2 fl (7.4-10.4); MONOCYTES % 7.7 % (2.0-8.0); NEUTROPHILS % 59.7 % (40.0-76.0); RED CELL DISTRIBUTION WIDTH 19.4 % (11.6-14.6)
[2019-09-07] MEDS: PANTOPRAZOLE SODIUM 40 MG/VIAL IV SCH (10:09)
[2019-09-07] MEDS: METOPROLOL TARTRATE 25MG TABLET PO SCH ×2 (10:10→21:37)
[2019-09-07] MEDS: LANTHANUM CARBONATE 500MG CHEW TABLET PO SCH ×3 (10:11→17:38)
[2019-09-07] MEDS: ASCORBIC ACID 500 MG TABLET PO SCH (10:11)
[2019-09-07] MEDS: RIFAXIMIN 550 MG TABLET NG SCH ×2 (10:11→21:36)
[2019-09-07] MEDS: ZINC SULFATE 220 MG ( 50 ) CAPSULE PO SCH (10:11)
[2019-09-07] MEDS: POTASSIUM CHLORIDE 20MEQ/PACKET PO SCH (10:13)
[2019-09-07] MEDS: CYANOCOBALAMIN 1000MCG TABLET PO SCH (10:14)
[2019-09-07 10:19] LABS: BG BASE EXCESS -1.5 mmol/L (-2.0-2.0); BG DEOXYHEMOGLOBIN 2.3 % (0.0-5.0); BG FRACTION INSPIRED OXYGEN 32; BG HCO3 ACT 21.3 mmol/L (22.0-26.0); BG METHEMOGLOBIN 0.2 % (0.0-1.5); BG OXYGEN SATURATION 97.7 % (92.0-98.5); BG OXYHEMOGLOBIN 97.5 % (94.0-97.0); BG PCO2 28.8 mmHg (35.0-45.0); BG PH 7.487 (7.350-7.450); BG PO2 113.3 mmHg (75.0-100.0); BG SAMPLE SITE RIGHT RADIAL; BG TOTAL HEMOGLOBIN 9.1 g/dL (12.0-18.0); BG VENT MODE NASAL CANNULA
[2019-09-07 10:19] LABS: PLATELET 29 x1000/uL (130-400)
[2019-09-07 12:00] VITALS: BP 109/72
[2019-09-07 16:00] VITALS: BP 146/90
[2019-09-07 20:00] VITALS: BP 162/84
[2019-09-08] VITALS: BP 134/91
[2019-09-08] MEDS: CITRIC ACID/SODIUM CITRATE SOLN 30ML UDC PO SCH ×4 (00:53→18:08)
[2019-09-08] MEDS: SODIUM CHLORIDE 45ML SPRAY NS SCH ×3 (00:55→12:24)
[2019-09-08] MEDS: DEXTROSE 5% WATER 1,000 ML IV SCH ×3 (03:07→22:06)
[2019-09-08 04:00] VITALS: BP 133/77
[2019-09-08] MEDS: METRONIDAZOLE 500MG TABLET PO SCH (05:25)
[2019-09-08] MEDS: LACTULOSE 20G/30ML UDC PO SCH ×3 (05:25→22:00)
[2019-09-08] MEDS: CYANOCOBALAMIN 1000MCG TABLET PO SCH (06:16)
[2019-09-08] MEDS: LANTHANUM CARBONATE 500MG CHEW TABLET PO SCH ×3 (06:16→18:08)
[2019-09-08 08:00] VITALS: BP 156/94
[2019-09-08] MEDS: POTASSIUM CHLORIDE 20MEQ/PACKET PO SCH (09:08)
[2019-09-08] MEDS: PANTOPRAZOLE SODIUM 40 MG/VIAL IV SCH (09:08)
[2019-09-08] MEDS: RIFAXIMIN 550 MG TABLET NG SCH ×2 (09:09→22:00)
[2019-09-08] MEDS: ZINC SULFATE 220 MG ( 50 ) CAPSULE PO SCH (09:09)
[2019-09-08] MEDS: ASCORBIC ACID 500 MG TABLET PO SCH (09:09)
[2019-09-08] MEDS: METOPROLOL TARTRATE 25MG TABLET PO SCH ×2 (09:10→22:04)
[2019-09-08] MEDS: IPRATROPIUM/ALBUTEROL 0.5-3(2.5)MG/3ML NEB HHN SCH ×3 (09:45→21:51)
[2019-09-08] MEDS ORDERED: POTASSIUM CHLORIDE 20MEQ/PACKET PO SCH (10:00)
[2019-09-08 10:08] LABS: EOSINOPHILS % 6.3 % (0.0-5.0); HEMATOCRIT. 31.4 % (42.0-52.0); HEMOGLOBIN. 10.4 g/dL (14.0-18.0); LYMPHOCYTES % 21.7 % (20.0-50.0); MEAN CORPUSCULAR HEMOGLOBIN 34.3 pg (28.0-32.0); MEAN CORPUSCULAR VOLUME 103.3 fL (80.0-94.0); MEAN PLATELET VOLUME 10.5 fl (7.4-10.4); MONOCYTES % 7.6 % (2.0-8.0); NEUTROPHILS % 63.4 % (40.0-76.0); RED BLOOD CELL COUNT 3.04 mill/uL (4.7-6.1); RED CELL DISTRIBUTION WIDTH 18.7 % (11.6-14.6)
[2019-09-08 10:14] LABS: PLATELET 31 x1000/uL (130-400)
[2019-09-08 12:00] VITALS: BP 140/86
[2019-09-08] MEDS ORDERED: AMLODIPINE 2.5MG TABLET PO NR (12:30)
[2019-09-08 14:07] LABS: PLATELET ESTIMATE MARKEDLY DECREASED
[2019-09-08 16:00] VITALS: BP 162/93
[2019-09-08 20:00] VITALS: BP 160/96
[2019-09-09] VITALS: BP 149/85
[2019-09-09] MEDS: CITRIC ACID/SODIUM CITRATE SOLN 30ML UDC PO SCH ×4 (00:22→16:53)
[2019-09-09 04:00] VITALS: BP 148/76
[2019-09-09] MEDS: LACTULOSE 20G/30ML UDC PO SCH ×3 (05:14→16:53)
[2019-09-09] MEDS: CYANOCOBALAMIN 1000MCG TABLET PO SCH (06:17)
[2019-09-09] MEDS: LANTHANUM CARBONATE 500MG CHEW TABLET PO SCH ×3 (06:17→16:53)
[2019-09-09 08:00] VITALS: BP 150/87
[2019-09-09] MEDS: IPRATROPIUM/ALBUTEROL 0.5-3(2.5)MG/3ML NEB HHN SCH ×2 (08:51→15:45)
[2019-09-09] MEDS: DEXTROSE 5% WATER 1,000 ML IV SCH ×3 (09:42→22:20)
[2019-09-09] MEDS: METOPROLOL TARTRATE 25MG TABLET PO SCH ×2 (09:42→21:46)
[2019-09-09] MEDS: RIFAXIMIN 550 MG TABLET NG SCH ×2 (09:42→21:46)
[2019-09-09] MEDS: PANTOPRAZOLE SODIUM 40 MG/VIAL IV SCH (09:42)
[2019-09-09] MEDS: POTASSIUM CHLORIDE 20MEQ/PACKET PO SCH (09:43)
[2019-09-09 10:54] LABS: BASOPHILS % 1.2 % (0.0-2.0); EOSINOPHILS % 5.4 % (0.0-5.0); HEMATOCRIT. 28.2 % (42.0-52.0); HEMOGLOBIN. 9.3 g/dL (14.0-18.0); MEAN CORPUSCULAR HEMOGLOBIN 34.5 pg (28.0-32.0); MEAN CORPUSCULAR VOLUME 104.5 fL (80.0-94.0); MEAN PLATELET VOLUME 10.5 fl (7.4-10.4); MONOCYTES % 8.6 % (2.0-8.0); NEUTROPHILS % 63.8 % (40.0-76.0); RED CELL DISTRIBUTION WIDTH 20.1 % (11.6-14.6)
[2019-09-09 10:57] LABS: PLATELET 31 x1000/uL (130-400)
[2019-09-09 20:00] VITALS: BP 152/82
[2019-09-10] VITALS: BP 157/94
[2019-09-10] MEDS: CITRIC ACID/SODIUM CITRATE SOLN 30ML UDC PO SCH ×5 (00:36→17:26)
[2019-09-10 04:00] VITALS: BP 163/94
[2019-09-10] MEDS: DEXTROSE 5% WATER 1,000 ML IV SCH ×2 (06:14→17:26)
[2019-09-10 06:46] LABS: BASOPHILS % 1.1 % (0.0-2.0); EOSINOPHILS % 7.2 % (0.0-5.0); HEMOGLOBIN. 9.2 g/dL (14.0-18.0); LYMPHOCYTES % 25.7 % (20.0-50.0); MEAN CORPUSCULAR HEMOGLOBIN 34.3 pg (28.0-32.0); MEAN CORPUSCULAR VOLUME 104.8 fL (80.0-94.0); MEAN PLATELET VOLUME 10.5 fl (7.4-10.4); MONOCYTES % 9.6 % (2.0-8.0); NEUTROPHILS % 56.4 % (40.0-76.0); RED BLOOD CELL COUNT 2.67 mill/uL (4.7-6.1); RED CELL DISTRIBUTION WIDTH 20.7 % (11.6-14.6)
[2019-09-10] MEDS: CYANOCOBALAMIN 1000MCG TABLET PO SCH (07:15)
[2019-09-10 08:00] VITALS: BP_SYST 134; BP_SYST 153; BP_DIAS 45; BP_DIAS 89; BP_DIAS 99
[2019-09-10] MEDS: LACTULOSE 20G/30ML UDC PO SCH ×2 (08:50→17:00)
[2019-09-10] MEDS: POTASSIUM CHLORIDE 20MEQ/PACKET PO SCH (08:51)
[2019-09-10] MEDS: LANTHANUM CARBONATE 500MG CHEW TABLET PO SCH ×4 (08:51→17:15)
[2019-09-10] MEDS: RIFAXIMIN 550 MG TABLET NG SCH ×2 (08:51→21:09)
[2019-09-10] MEDS: PANTOPRAZOLE SODIUM 40 MG/VIAL IV SCH (08:51)
[2019-09-10] MEDS: METOPROLOL TARTRATE 25MG TABLET PO SCH ×2 (08:52→21:10)
[2019-09-10] MEDS: IPRATROPIUM/ALBUTEROL 0.5-3(2.5)MG/3ML NEB HHN SCH ×3 (10:04→21:47)
[2019-09-10 12:00] VITALS: BP 130/76
[2019-09-10 13:55] LABS: PLATELET 34 x1000/uL (130-400); PLATELET ESTIMATE MARKEDLY DECREASED
[2019-09-10 16:00] VITALS: BP 143/102
[2019-09-10 16:43] LABS: PHOSPHORUS 3.2 mg/dL (2.5-4.9)
[2019-09-10 20:00] VITALS: BP 153/93
[2019-09-11] VITALS (7 sets, daily range): BP systolic 140–158; BP diastolic 79–98
[2019-09-11] MEDS: CITRIC ACID/SODIUM CITRATE SOLN 30ML UDC PO SCH ×4 (01:15→18:37)
[2019-09-11] MEDS: DEXTROSE 5% WATER 1,000 ML IV SCH ×3 (03:54→09:02)
[2019-09-11] MEDS: LANTHANUM CARBONATE 500MG CHEW TABLET PO SCH ×3 (06:34→17:55)
[2019-09-11] MEDS: IPRATROPIUM/ALBUTEROL 0.5-3(2.5)MG/3ML NEB HHN SCH ×2 (08:18→15:43)
[2019-09-11 09:52] LABS: BASOPHILS % 0.7 % (0.0-2.0); EOSINOPHILS % 5.7 % (0.0-5.0); HEMATOCRIT. 28.5 % (42.0-52.0); HEMOGLOBIN. 9.4 g/dL (14.0-18.0); LYMPHOCYTES % 27.4 % (20.0-50.0); MEAN CORPUSCULAR HEMOGLOBIN 34.7 pg (28.0-32.0); MEAN CORPUSCULAR VOLUME 105.8 fL (80.0-94.0); MEAN PLATELET VOLUME 10.8 fl (7.4-10.4); MONOCYTES % 6.7 % (2.0-8.0); NEUTROPHILS % 59.5 % (40.0-76.0); RED CELL DISTRIBUTION WIDTH 20.8 % (11.6-14.6)
[2019-09-11] MEDS: POTASSIUM CHLORIDE 20MEQ/PACKET PO SCH (10:15)
[2019-09-11] MEDS: RIFAXIMIN 550 MG TABLET NG SCH ×2 (10:16→21:00)
[2019-09-11] MEDS: METOPROLOL TARTRATE 25MG TABLET PO SCH ×2 (10:16→21:00)
[2019-09-11] MEDS: LACTULOSE 20G/30ML UDC PO SCH ×2 (10:16→17:54)
[2019-09-11] MEDS: PANTOPRAZOLE SODIUM 40 MG/VIAL IV SCH (10:17)
[2019-09-11 10:29] LABS: PLATELET 35 x1000/uL (130-400)
[2019-09-12] VITALS: BP 142/91
[2019-09-12] MEDS: IPRATROPIUM/ALBUTEROL 0.5-3(2.5)MG/3ML NEB HHN SCH ×2 (00:29→07:34)
[2019-09-12] MEDS: CITRIC ACID/SODIUM CITRATE SOLN 30ML UDC PO SCH ×3 (01:13→12:01)
[2019-09-12 04:00] VITALS: BP 119/59
[2019-09-12] MEDS: DEXTROSE 5% WATER 1,000 ML IV SCH (04:38)
[2019-09-12] MEDS: LANTHANUM CARBONATE 500MG CHEW TABLET PO SCH ×2 (06:22→12:01)
[2019-09-12 07:53] LABS: BASOPHILS % 0.8 % (0.0-2.0); EOSINOPHILS % 2.6 % (0.0-5.0); HEMATOCRIT. 30.1 % (42.0-52.0); HEMOGLOBIN. 10.1 g/dL (14.0-18.0); LYMPHOCYTES % 21.5 % (20.0-50.0); MEAN CORPUSCULAR VOLUME 104.2 fL (80.0-94.0); MONOCYTES % 4.8 % (2.0-8.0); NEUTROPHILS % 70.3 % (40.0-76.0); RED BLOOD CELL COUNT 2.89 mill/uL (4.7-6.1)
[2019-09-12 08:00] VITALS: BP 151/90
[2019-09-12 08:14] LABS: PLATELET 37 x1000/uL (130-400)
[2019-09-12] MEDS: PANTOPRAZOLE SODIUM 40 MG/VIAL IV SCH (10:14)
[2019-09-12] MEDS: RIFAXIMIN 550 MG TABLET NG SCH (10:14)
[2019-09-12] MEDS: LACTULOSE 20G/30ML UDC PO SCH (10:16)
[2019-09-12] MEDS: METOPROLOL TARTRATE 25MG TABLET PO SCH (10:16)
[2019-09-12] MEDS: POTASSIUM CHLORIDE 20MEQ/PACKET PO SCH (10:17)
[2019-09-12] MEDS: HYDRALAZINE 20MG/ML VIAL IV PRN (11:40)
[2019-09-12 12:00] VITALS: BP 145/91
[2019-09-12] MEDS ORDERED: AMLODIPINE 2.5MG TABLET PO SCH (12:30)
[2019-09-13 07:07] LABS: ANA IFA Negative (.)
== END 2019-09-12 15:10 | DRG 720 ==
LOC: ER 11:47 → EDBEDREQ 14:52 → EDBEDREQSVC 14:52 → ENRESERV 18:09 → MICUNO 20:52 → 7WST 08-25 02:00 → 5WST 08-28 14:24
PROVIDERS: ADMIT Internal Medicine Nephrology; ATTEND Internal Medicine Nephrology
PROC: 5A1955Z Respiratory Ventilation, Greater than 96 Consecutive Hours (ICD-10-PCS; principal; 2019-08-14)
PROC: 0BH17EZ Insertion of Endotracheal Airway into Trachea, Via Natural or Artificial Opening (ICD-10-PCS; 2019-08-14)
PROC: 06HY33Z Insertion of Infusion Device into Lower Vein, Percutaneous Approach (ICD-10-PCS; 2019-08-14)
PROC: 4A10X4Z Monitoring of Central Nervous Electrical Activity, External Approach (ICD-10-PCS; 2019-09-01)
PROC: 30233R1 Transfusion of Nonautologous Platelets into Peripheral Vein, Percutaneous Approach (ICD-10-PCS; 2019-09-05)
DX: A41.89 Other specified sepsis (principal); U07.1 COVID-19; J96.01 Acute respiratory failure with hypoxia; D65 Disseminated intravascular coagulation [defibrination syndrome]; E43 Unspecified severe protein-calorie malnutrition; D61.818 Other pancytopenia; N17.0 Acute kidney failure with tubular necrosis; G92 Toxic encephalopathy; E72.20 Disorder of urea cycle metabolism, unspecified; E87.2 Acidosis; E87.3 Alkalosis; K72.90 Hepatic failure, unspecified without coma; R65.20 Severe sepsis without septic shock; E87.6 Hypokalemia; E87.0 Hyperosmolality and hypernatremia; J12.89 Other viral pneumonia; J44.0 Chronic obstructive pulmonary disease with (acute) lower respiratory infection; E87.8 Other disorders of electrolyte and fluid balance, not elsewhere classified; K74.60 Unspecified cirrhosis of liver; I13.0 Hypertensive heart and chronic kidney disease with heart failure and stage 1 through stage 4 chronic kidney disease, or unspecified chronic kidney disease; F20.9 Schizophrenia, unspecified; I25.10 Atherosclerotic heart disease of native coronary artery without angina pectoris; N18.9 Chronic kidney disease, unspecified; I50.43 Acute on chronic combined systolic (congestive) and diastolic (congestive) heart failure; N39.0 Urinary tract infection, site not specified; D53.9 Nutritional anemia, unspecified; D72.810 Lymphocytopenia; I47.2 Ventricular tachycardia; R04.0 Epistaxis; G62.9 Polyneuropathy, unspecified; F32.9 Major depressive disorder, single episode, unspecified; K21.9 Gastro-esophageal reflux disease without esophagitis; R00.1 Bradycardia, unspecified; E87.1 Hypo-osmolality and hyponatremia; T50.995A Adverse effect of other drugs, medicaments and biological substances, initial encounter; Z86.73 Personal history of transient ischemic attack (TIA), and cerebral infarction without residual deficits; I25.2 Old myocardial infarction; Z78.9 Other specified health status; Z79.899 Other long term (current) drug therapy; Z78.1 Physical restraint status; Y92.89 Other specified places as the place of occurrence of the external cause
CPT/HCPCS: 31500; 36415; 36556; 36600; 71045; 76700; 80048; 80053; 80076; 81003; 82140; 82375; 82607; 82728; 82746; 82805; 82962; 83010; 83036; 83605; 83615; 83735; 83880; 84100; 84145; 84439; 84443; 84478; 84481; 84484; 85025; 85044; 85379; 86038; 86140; 86256; 86850; 86880; 86900; 87420; 87635; 87804; 92610; 93005; 93306; 94002; 94003; 99291; C9113; J0360; J0692; J0696; J1650; J1940; J1953; J2060; J2543; J2704; J2765; J2920; J3010; J3370; J3475; J3480; J3490; J7030; J7050; J7060; J7070; J7608; P9034; P9041

== ENCOUNTER 2019-09-16 18:55 | Inpatient (IN) | payer MEDICARE, MEDICAID ==
[~2019-09-16] VITALS: Ht 182.9 cm; Wt 66.7 kg
[~2019-09-16 18:55] MED LIST changes: +DIVA500T3 MT; +DOCU250C69 MT; +ERGO2000 MT; -FURO-152 PO; +KEPP500 MT; +METH-611 MT; -METH5TAB2 PO; +PROT40 MT; +QUET25TA MT; +SERT25TA MT
[2019-09-16] MEDS ORDERED: ONDANSETRON HCL 4MG/2ML INJ IV STA (19:24)
[2019-09-16 21:31] LABS: BASOPHILS % 0.7 % (0.0-2.0); EOSINOPHILS % 0.5 % (0.0-5.0); HEMATOCRIT. 27.2 % (42.0-52.0); LYMPHOCYTES % 11.4 % (20.0-50.0); MEAN CORPUSCULAR HEMOGLOBIN 34.7 pg (28.0-32.0); MEAN CORPUSCULAR VOLUME 104.5 fL (80.0-94.0); MEAN PLATELET VOLUME 10.3 fl (7.4-10.4); MONOCYTES % 4.9 % (2.0-8.0); NEUTROPHILS % 82.5 % (40.0-76.0); PLATELET 142 x1000/uL (130-400)
[2019-09-16 21:33] LABS: CHLORIDE 122 mEq/L (98-107); INR 1.3; PROTHROMBIN TIME 13.5 sec (9.6-11.0)
[2019-09-16] MEDS ORDERED: LEVOFLOXACIN 500MG PREMIX 100 ML IV ONE (22:45)
[2019-09-16] MEDS ORDERED: PROPOFOL 10MG/ML 100ML 100 ML IV SCH (22:45)
[2019-09-16] MEDS ORDERED: SODIUM CHLORIDE 0.9% 1,000 ML IV ONE (23:00)
[2019-09-16] MEDS ORDERED: SUCCINYLCHOLINE CHLORIDE 200MG/10ML IV ONE (23:10)
[2019-09-16] MEDS ORDERED: ETOMIDATE 2MG/ML 10ML VIAL IV ONE (23:10)
[2019-09-17 00:09] LABS: BG BASE EXCESS -8.6 mmol/L (-2.0-2.0); BG CARBOXYHEMOGLOBIN 0.3 % (0.5-1.5); BG DEOXYHEMOGLOBIN 0.7 % (0.0-5.0); BG FRACTION INSPIRED OXYGEN 100; BG HCO3 ACT 18.1 mmol/L (22.0-26.0); BG METHEMOGLOBIN 0.3 % (0.0-1.5); BG OXYGEN SATURATION 99.3 % (92.0-98.5); BG OXYHEMOGLOBIN 98.7 % (94.0-97.0); BG PH 7.252 (7.350-7.450); BG PO2 272.8 mmHg (75.0-100.0); BG SAMPLE SITE RIGHT RADIAL; BG TIDAL VOLUME(mL) 500 mL; BG TOTAL HEMOGLOBIN 11.9 g/dL (12.0-18.0); BG VENT MODE VENT - A/C; BG VENT RATE 14 set
[2019-09-17 06:26] LABS: CLARITY URINE CLOUDY (CLEAR); COLOR URINE YELLOW (YELLOW); KETONES URINE NEGATIVE (NEGATIVE); LEUKOCYTE ESTERASE URINE TRACE (NEGATIVE); NITRITE URINE NEGATIVE (NEGATIVE); OCCULT BLOOD URINE NEGATIVE (NEGATIVE); PROTEIN URINE TRACE (NEGATIVE); SPECIFIC GRAVITY URINE 1.017 (1.005-1.030); UROBILINOGEN URINE 0.2 E.U./dL (0.2-1.0)
[2019-09-17] MEDS ORDERED: ENOXAPARIN 40MG/0.4ML SYR SUBCUT SCH (08:45)
[2019-09-17] MEDS ORDERED: DOCUSATE SODIUM 100MG CAPSULE PO PRN (08:45)
[2019-09-17] MEDS ORDERED: ONDANSETRON HCL 4MG/2ML INJ IV PRN (08:45)
[2019-09-17] MEDS ORDERED: CLONIDINE 0.1MG TABLET PO PRN (08:45)
[2019-09-17] MEDS ORDERED: MORPHINE SULFATE 2 MG/ML CPJ (NOT FOR IM USE) IV PRN (08:45)
[2019-09-17] MEDS ORDERED: PIPERACILLIN/TAZ 3.375G PREMIX 50 ML IV NR (09:11)
[2019-09-17] MEDS: ENOXAPARIN 30MG/0.3ML SYR SUBCUT SCH (09:27)
[2019-09-17] MEDS: DEXTROSE 5% WATER 1,000 ML IV SCH (09:27)
[2019-09-17] MEDS ORDERED: VANCOMYCIN 1250MG in DEXTROSE 5% WATER 250ML IV SCH (09:30)
[2019-09-17] MEDS ORDERED: PROPOFOL 10MG/ML 100ML 100 ML IV PRN (14:00)
[2019-09-17] MEDS ORDERED: SODIUM BICARBONATE 8.4% 1 MEQ/ML 50ML SYR IV ONE (14:15)
[2019-09-17] MEDS ORDERED: PIPERACILLIN/TAZOBACTAM 2.25 G in DEXTROSE 5% WATER 50 ML IV NR (15:15)
[2019-09-18] VITALS (26 sets, daily range): BP systolic 84–125; BP diastolic 50–76
[2019-09-18] MEDS ORDERED: PIPERACILLIN/TAZOBACTAM 2.25 G in DEXTROSE 5% WATER 50 ML IV NR ×2
[2019-09-18] MEDS ORDERED: PROPOFOL 10MG/ML 100ML 100 ML IV PRN (01:00)
[2019-09-18 04:18] LABS: BASOPHILS % 0.6 % (0.0-2.0); EOSINOPHILS % 2.8 % (0.0-5.0); HEMATOCRIT. 22.9 % (42.0-52.0); HEMOGLOBIN. 7.4 g/dL (14.0-18.0); LYMPHOCYTES % 13.7 % (20.0-50.0); MEAN CORPUSCULAR VOLUME 105.1 fL (80.0-94.0); MEAN PLATELET VOLUME 10.2 fl (7.4-10.4); MONOCYTES % 3.8 % (2.0-8.0); NEUTROPHILS % 79.1 % (40.0-76.0); PLATELET 89 x1000/uL (130-400); RED BLOOD CELL COUNT 2.18 mill/uL (4.7-6.1); RED CELL DISTRIBUTION WIDTH 19.7 % (11.6-14.6)
[2019-09-18 04:27] LABS: CHLORIDE 119 mEq/L (98-107)
[2019-09-18 04:35] LABS: HDL CHOLESTEROL 18 mg/dL (40-59); LDL CHOLESTEROL 49 mg/dL (5-100)
[2019-09-18] MEDS ORDERED: POTASSIUM CHLORIDE INJ 60 MEQ in DEXT 5% WATER 500 ML IV NR (05:30)
[2019-09-18 05:46] LABS: PHOSPHORUS 3.6 mg/dL (2.5-4.9)
[2019-09-18 07:40] LABS: HEMATOCRIT 22.4 % (42.0-52.0); HEMOGLOBIN 7.4 g/dL (14.0-18.0)
[2019-09-18] MEDS ORDERED: PIPERACILLIN/TAZ 3.375G PREMIX 50 ML IV SCH (08:00)
[2019-09-18] MEDS ORDERED: VANCOMYCIN 1 G PREMIX 200 ML IV SCH (08:45)
[2019-09-18] MEDS: DEXTROSE 5% WATER 1,000 ML IV SCH ×2 (09:15→21:01)
[2019-09-18] MEDS: PIPERACILLIN/TAZOBACTAM 2.25 G in DEXTROSE 5% WATER 50 ML IV SCH ×3 (09:15→21:01)
[2019-09-18 09:16] LABS: BG BASE EXCESS -6.9 mmol/L (-2.0-2.0); BG CARBOXYHEMOGLOBIN 0.3 % (0.5-1.5); BG DEOXYHEMOGLOBIN 1.1 % (0.0-5.0); BG FRACTION INSPIRED OXYGEN 50; BG HCO3 ACT 17.3 mmol/L (22.0-26.0); BG METHEMOGLOBIN 0.3 % (0.0-1.5); BG OXYGEN SATURATION 98.9 % (92.0-98.5); BG OXYHEMOGLOBIN 98.3 % (94.0-97.0); BG PCO2 29.4 mmHg (35.0-45.0); BG PH 7.387 (7.350-7.450); BG PO2 151.9 mmHg (75.0-100.0); BG SAMPLE SITE RIGHT RADIAL; BG TIDAL VOLUME(mL) 500 mL; BG TOTAL HEMOGLOBIN 8.2 g/dL (12.0-18.0); BG VENT MODE VENT - A/C; BG VENT RATE 18 set
[2019-09-18] MEDS: CITRIC ACID/SODIUM CITRATE SOLN 30ML UDC PO SCH ×3 (09:16→17:01)
[2019-09-18] MEDS ORDERED: VANCOMYCIN 500 MG PREMIX 100 ML IV SCH (10:00)
[2019-09-18] MEDS: ENOXAPARIN 30MG/0.3ML SYR SUBCUT SCH (10:00)
[2019-09-18] MEDS ORDERED: IPRATROPIUM/ALBUTEROL 0.5-3(2.5)MG/3ML NEB HHN PRN (12:00)
[2019-09-18] MEDS ORDERED: NOREPINEPHRINE 4MG/250ML PMX IV PRN (15:15)
[2019-09-18] MEDS: IPRATROPIUM/ALBUTEROL 0.5-3(2.5)MG/3ML NEB HHN SCH ×2 (15:15→21:31)
[2019-09-18] MEDS: PROPOFOL 10MG/ML 100ML 100 ML IV PRN (23:28)
[2019-09-19] VITALS (94 sets, daily range): BP systolic 60–127; BP diastolic 42–80
[2019-09-19] MEDS: IPRATROPIUM/ALBUTEROL 0.5-3(2.5)MG/3ML NEB HHN SCH ×4 (03:02→21:00)
[2019-09-19] MEDS: PIPERACILLIN/TAZOBACTAM 2.25 G in DEXTROSE 5% WATER 50 ML IV SCH ×3 (05:48→21:08)
[2019-09-19] MEDS: BLOOD SUGAR DIAGNOSTIC STRIP TEST SCH ×3 (06:52→17:20)
[2019-09-19 07:00] LABS: BASOPHILS % 0.9 % (0.0-2.0); EOSINOPHILS % 2.8 % (0.0-5.0); HEMATOCRIT. 27.2 % (42.0-52.0); LYMPHOCYTES % 16.1 % (20.0-50.0); MEAN CORPUSCULAR HEMOGLOBIN 34.8 pg (28.0-32.0); MEAN CORPUSCULAR VOLUME 104.8 fL (80.0-94.0); MEAN PLATELET VOLUME 10.8 fl (7.4-10.4); MONOCYTES % 4.3 % (2.0-8.0); NEUTROPHILS % 75.9 % (40.0-76.0); PLATELET 123 x1000/uL (130-400); RED BLOOD CELL COUNT 2.59 mill/uL (4.7-6.1); RED CELL DISTRIBUTION WIDTH 20.3 % (11.6-14.6)
[2019-09-19] MEDS ORDERED: NOREPINEPHRINE 4 MG in DEXT 5% WATER 246 ML IV PRN ×2 (07:00→07:30)
[2019-09-19] MEDS: INSULIN LISPRO 100 UNITS/ML SUBCUT SCH ×3 (07:02→17:20)
[2019-09-19] MEDS: DEXTROSE 5% WATER 1,000 ML IV SCH (07:07)
[2019-09-19 07:35] LABS: PHOSPHORUS 3.2 mg/dL (2.5-4.9)
[2019-09-19] MEDS: VANCOMYCIN 750 MG PREMIX 150 ML IV SCH (08:52)
[2019-09-19] MEDS: CITRIC ACID/SODIUM CITRATE SOLN 30ML UDC PO SCH ×3 (08:52→17:19)
[2019-09-19] MEDS ORDERED: POTASSIUM CHLORIDE 20MEQ/PACKET PO NR (09:00)
[2019-09-19] MEDS: PROPOFOL 10MG/ML 100ML 100 ML IV PRN ×2 (09:18→18:57)
[2019-09-19 09:48] LABS: BG BASE EXCESS -7.4 mmol/L (-2.0-2.0); BG CARBOXYHEMOGLOBIN 0.3 % (0.5-1.5); BG DEOXYHEMOGLOBIN 4.1 % (0.0-5.0); BG FRACTION INSPIRED OXYGEN 35; BG HCO3 ACT 16.9 mmol/L (22.0-26.0); BG METHEMOGLOBIN 0.3 % (0.0-1.5); BG OXYGEN SATURATION 95.9 % (92.0-98.5); BG OXYHEMOGLOBIN 95.3 % (94.0-97.0); BG PCO2 29.8 mmHg (35.0-45.0); BG PH 7.371 (7.350-7.450); BG PO2 86.7 mmHg (75.0-100.0); BG SAMPLE SITE RIGHT RADIAL; BG TIDAL VOLUME(mL) 500 mL; BG TOTAL HEMOGLOBIN 9.9 g/dL (12.0-18.0); BG VENT MODE VENT - A/C; BG VENT RATE 18 set
[2019-09-19] MEDS: PHENYLEPHRINE 40 MG in DEXT 5% WATER 246 ML IV PRN (18:46)
[2019-09-19] MEDS: ACETAMINOPHEN 650MG/20.3ML UDC GT PRN (21:07)
[2019-09-19] MEDS: EPOETIN ALFA 10000UNITS/ML VIAL SUBCUT SCH (21:10)
[2019-09-20] VITALS (89 sets, daily range): BP systolic 83–154; BP diastolic 47–91
[2019-09-20] MEDS: DEXTROSE 5% WATER 1,000 ML IV SCH ×2 (01:03→21:41)
[2019-09-20] MEDS: PHENYLEPHRINE 40 MG in DEXT 5% WATER 246 ML IV PRN ×3 (01:03→14:30)
[2019-09-20] MEDS: IPRATROPIUM/ALBUTEROL 0.5-3(2.5)MG/3ML NEB HHN SCH ×4 (02:05→20:37)
[2019-09-20] MEDS: PROPOFOL 10MG/ML 100ML 100 ML IV PRN ×2 (04:10→15:40)
[2019-09-20] MEDS: PIPERACILLIN/TAZOBACTAM 2.25 G in DEXTROSE 5% WATER 50 ML IV SCH ×3 (05:49→21:41)
[2019-09-20] MEDS: INSULIN LISPRO 100 UNITS/ML SUBCUT SCH ×4 (05:49→17:45)
[2019-09-20] MEDS: BLOOD SUGAR DIAGNOSTIC STRIP TEST SCH ×4 (05:49→17:45)
[2019-09-20] MEDS: CITRIC ACID/SODIUM CITRATE SOLN 30ML UDC PO SCH ×3 (08:21→21:41)
[2019-09-20] MEDS: ENOXAPARIN 30MG/0.3ML SYR SUBCUT SCH (08:21)
[2019-09-20] MEDS: VANCOMYCIN 750 MG PREMIX 150 ML IV SCH (08:21)
[2019-09-20 10:47] LABS: BASOPHILS % 0.9 % (0.0-2.0); HEMATOCRIT. 28.4 % (42.0-52.0); HEMOGLOBIN. 9.1 g/dL (14.0-18.0); LYMPHOCYTES % 23.4 % (20.0-50.0); MEAN CORPUSCULAR HEMOGLOBIN 33.5 pg (28.0-32.0); MONOCYTES % 8.1 % (2.0-8.0); NEUTROPHILS % 66.6 % (40.0-76.0); PLATELET 163 x1000/uL (130-400); RED BLOOD CELL COUNT 2.73 mill/uL (4.7-6.1); RED CELL DISTRIBUTION WIDTH 19.8 % (11.6-14.6)
[2019-09-21] VITALS (97 sets, daily range): BP systolic 61–156; BP diastolic 36–91
[2019-09-21] MEDS: BLOOD SUGAR DIAGNOSTIC STRIP TEST SCH ×4 (00:29→18:12)
[2019-09-21] MEDS: PROPOFOL 10MG/ML 100ML 100 ML IV PRN (01:29)
[2019-09-21] MEDS: IPRATROPIUM/ALBUTEROL 0.5-3(2.5)MG/3ML NEB HHN SCH ×4 (02:23→21:43)
[2019-09-21] MEDS: CITRIC ACID/SODIUM CITRATE SOLN 30ML UDC PO SCH ×4 (02:53→22:25)
[2019-09-21] MEDS: INSULIN LISPRO 100 UNITS/ML SUBCUT SCH ×4 (06:00→18:00)
[2019-09-21] MEDS: PIPERACILLIN/TAZOBACTAM 2.25 G in DEXTROSE 5% WATER 50 ML IV SCH ×3 (06:37→22:27)
[2019-09-21 07:42] LABS: HEMATOCRIT. 26.1 % (42.0-52.0); HEMOGLOBIN. 8.7 g/dL (14.0-18.0); MEAN CORPUSCULAR HEMOGLOBIN 34.9 pg (28.0-32.0); MEAN CORPUSCULAR VOLUME 105.2 fL (80.0-94.0); MEAN PLATELET VOLUME 11.1 fl (7.4-10.4); PLATELET 101 x1000/uL (130-400); RED BLOOD CELL COUNT 2.48 mill/uL (4.7-6.1); RED CELL DISTRIBUTION WIDTH 20.6 % (11.6-14.6)
[2019-09-21] MEDS: ENOXAPARIN 30MG/0.3ML SYR SUBCUT SCH (08:59)
[2019-09-21 09:34] LABS: BG BASE EXCESS -7.9 mmol/L (-2.0-2.0); BG CARBOXYHEMOGLOBIN 0.1 % (0.5-1.5); BG DEOXYHEMOGLOBIN 1.8 % (0.0-5.0); BG FRACTION INSPIRED OXYGEN 35; BG HCO3 ACT 15.9 mmol/L (22.0-26.0); BG METHEMOGLOBIN 0.3 % (0.0-1.5); BG OXYGEN SATURATION 98.2 % (92.0-98.5); BG OXYHEMOGLOBIN 97.8 % (94.0-97.0); BG PCO2 26.8 mmHg (35.0-45.0); BG PH 7.391 (7.350-7.450); BG PO2 117.2 mmHg (75.0-100.0); BG SAMPLE SITE RIGHT RADIAL; BG TIDAL VOLUME(mL) 500 mL; BG TOTAL HEMOGLOBIN 9.4 g/dL (12.0-18.0); BG VENT MODE VENT - A/C; BG VENT RATE 18 set
[2019-09-21] MEDS: PHENYLEPHRINE 40 MG in DEXT 5% WATER 246 ML IV PRN ×3 (09:56→23:23)
[2019-09-21] MEDS ORDERED: MORPHINE SULFATE 2 MG/ML CPJ (NOT FOR IM USE) IV PRN (11:30)
[2019-09-21 12:22] LABS: NUCLEATED RED BLOOD CELLS 2 /100 WBC; PLATELET ESTIMATE DECREASED
[2019-09-21] MEDS: LORAZEPAM 2MG/ML CPJ IV PRN (16:17)
[2019-09-21] MEDS: EPOETIN ALFA 10000UNITS/ML VIAL SUBCUT SCH (22:25)
[2019-09-22] VITALS (94 sets, daily range): BP systolic 75–137; BP diastolic 36–92
[2019-09-22] MEDS: BLOOD SUGAR DIAGNOSTIC STRIP TEST SCH ×5 (00:21→23:33)
[2019-09-22] MEDS: IPRATROPIUM/ALBUTEROL 0.5-3(2.5)MG/3ML NEB HHN SCH ×3 (03:36→20:30)
[2019-09-22] MEDS: CITRIC ACID/SODIUM CITRATE SOLN 30ML UDC PO SCH ×4 (03:52→20:25)
[2019-09-22] MEDS: PIPERACILLIN/TAZOBACTAM 2.25 G in DEXTROSE 5% WATER 50 ML IV SCH ×3 (05:31→21:39)
[2019-09-22] MEDS: PHENYLEPHRINE 40 MG in DEXT 5% WATER 246 ML IV PRN (05:32)
[2019-09-22] MEDS: INSULIN LISPRO 100 UNITS/ML SUBCUT SCH ×5 (05:37→23:33)
[2019-09-22 06:54] LABS: EOSINOPHILS % 0.8 % (0.0-5.0); HEMATOCRIT. 29.4 % (42.0-52.0); LYMPHOCYTES % 20.3 % (20.0-50.0); MEAN CORPUSCULAR HEMOGLOBIN 34.8 pg (28.0-32.0); MEAN CORPUSCULAR VOLUME 102.5 fL (80.0-94.0); MEAN PLATELET VOLUME 11.7 fl (7.4-10.4); MONOCYTES % 10.3 % (2.0-8.0); NEUTROPHILS % 67.6 % (40.0-76.0); PLATELET 158 x1000/uL (130-400); RED BLOOD CELL COUNT 2.87 mill/uL (4.7-6.1); RED CELL DISTRIBUTION WIDTH 19.8 % (11.6-14.6)
[2019-09-22] MEDS: ENOXAPARIN 30MG/0.3ML SYR SUBCUT SCH (09:28)
[2019-09-22] MEDS: FUROSEMIDE 40MG/4ML VIAL IVP SCH (15:15)
[2019-09-23] VITALS (55 sets, daily range): BP systolic 81–128; BP diastolic 35–82
[2019-09-23] MEDS: CITRIC ACID/SODIUM CITRATE SOLN 30ML UDC PO SCH ×4 (03:20→21:36)
[2019-09-23] MEDS: PIPERACILLIN/TAZOBACTAM 2.25 G in DEXTROSE 5% WATER 50 ML IV SCH ×3 (05:47→21:36)
[2019-09-23] MEDS: INSULIN LISPRO 100 UNITS/ML SUBCUT SCH ×3 (05:48→17:25)
[2019-09-23] MEDS: BLOOD SUGAR DIAGNOSTIC STRIP TEST SCH ×3 (05:48→17:25)
[2019-09-23] MEDS: IPRATROPIUM/ALBUTEROL 0.5-3(2.5)MG/3ML NEB HHN SCH ×3 (08:20→22:01)
[2019-09-23] MEDS: ENOXAPARIN 30MG/0.3ML SYR SUBCUT SCH (09:08)
[2019-09-23] MEDS: FUROSEMIDE 40MG/4ML VIAL IVP SCH (09:08)
[2019-09-23 10:21] LABS: BG BASE EXCESS -0.3 mmol/L (-2.0-2.0); BG CARBOXYHEMOGLOBIN 0.2 % (0.5-1.5); BG DEOXYHEMOGLOBIN 1.7 % (0.0-5.0); BG FRACTION INSPIRED OXYGEN 35; BG HCO3 ACT 22.5 mmol/L (22.0-26.0); BG METHEMOGLOBIN 0.3 % (0.0-1.5); BG OXYGEN SATURATION 98.3 % (92.0-98.5); BG OXYHEMOGLOBIN 97.8 % (94.0-97.0); BG PH 7.493 (7.350-7.450); BG PO2 112.4 mmHg (75.0-100.0); BG SAMPLE SITE RIGHT RADIAL; BG TIDAL VOLUME(mL) 500 mL; BG TOTAL HEMOGLOBIN 9.3 g/dL (12.0-18.0); BG VENT MODE VENT - A/C; BG VENT RATE 18 set
[2019-09-23] MEDS ORDERED: POTASSIUM CHLORIDE 20MEQ/PACKET PO SCH (13:00)
[2019-09-23] MEDS: METOCLOPRAMIDE HCL 10MG/2ML VIAL IV SCH (17:40)
[2019-09-24] VITALS (71 sets, daily range): BP systolic 91–176; BP diastolic 51–131
[2019-09-24] MEDS: METOCLOPRAMIDE HCL 10MG/2ML VIAL IV SCH ×4 (00:19→18:29)
[2019-09-24] MEDS: BLOOD SUGAR DIAGNOSTIC STRIP TEST SCH ×4 (00:19→18:21)
[2019-09-24] MEDS: IPRATROPIUM/ALBUTEROL 0.5-3(2.5)MG/3ML NEB HHN SCH ×4 (01:14→20:10)
[2019-09-24] MEDS: INSULIN LISPRO 100 UNITS/ML SUBCUT SCH ×4 (05:54→18:00)
[2019-09-24] MEDS: CITRIC ACID/SODIUM CITRATE SOLN 30ML UDC PO SCH ×4 (05:54→21:24)
[2019-09-24] MEDS: PIPERACILLIN/TAZOBACTAM 2.25 G in DEXTROSE 5% WATER 50 ML IV SCH ×3 (05:54→21:24)
[2019-09-24 07:28] LABS: BASOPHILS % 0.9 % (0.0-2.0); EOSINOPHILS % 0.6 % (0.0-5.0); HEMOGLOBIN. 9.3 g/dL (14.0-18.0); MEAN CORPUSCULAR HEMOGLOBIN 34.2 pg (28.0-32.0); MEAN CORPUSCULAR VOLUME 102.8 fL (80.0-94.0); MONOCYTES % 11.3 % (2.0-8.0); NEUTROPHILS % 76.2 % (40.0-76.0); PLATELET 114 x1000/uL (130-400); RED BLOOD CELL COUNT 2.72 mill/uL (4.7-6.1); RED CELL DISTRIBUTION WIDTH 19.8 % (11.6-14.6)
[2019-09-24] MEDS ORDERED: SODIUM CHLORIDE 0.45% 1,000 ML IV SCH (09:00)
[2019-09-24] MEDS: ASCORBIC ACID 500 MG TABLET PO SCH (09:39)
[2019-09-24] MEDS: ZINC SULFATE 220 MG ( 50 ) CAPSULE PO SCH (09:39)
[2019-09-24] MEDS: LORAZEPAM 2MG/ML CPJ IV PRN (09:39)
[2019-09-24] MEDS: ENOXAPARIN 30MG/0.3ML SYR SUBCUT SCH (09:40)
[2019-09-24] MEDS: DEXTROSE 5% WATER 1,000 ML IV SCH (10:23)
[2019-09-24 10:56] LABS: BG BASE EXCESS -1.8 mmol/L (-2.0-2.0); BG CARBOXYHEMOGLOBIN 0.2 % (0.5-1.5); BG DEOXYHEMOGLOBIN 2.5 % (0.0-5.0); BG FRACTION INSPIRED OXYGEN 35; BG HCO3 ACT 21.7 mmol/L (22.0-26.0); BG METHEMOGLOBIN 1.3 % (0.0-1.5); BG OXYGEN SATURATION 97.5 % (92.0-98.5); BG PCO2 32.9 mmHg (35.0-45.0); BG PH 7.437 (7.350-7.450); BG PO2 116.8 mmHg (75.0-100.0); BG SAMPLE SITE RIGHT RADIAL; BG TIDAL VOLUME(mL) 500 mL; BG TOTAL HEMOGLOBIN 11.7 g/dL (12.0-18.0); BG VENT MODE VENT - A/C; BG VENT RATE 14 set
[2019-09-25] VITALS (91 sets, daily range): BP systolic 80–154; BP diastolic 24–115
[2019-09-25] MEDS: METOCLOPRAMIDE HCL 10MG/2ML VIAL IV SCH ×4 (00:04→18:01)
[2019-09-25] MEDS: BLOOD SUGAR DIAGNOSTIC STRIP TEST SCH ×4 (00:05→18:01)
[2019-09-25] MEDS: IPRATROPIUM/ALBUTEROL 0.5-3(2.5)MG/3ML NEB HHN SCH ×4 (02:07→20:52)
[2019-09-25] MEDS: LORAZEPAM 2MG/ML CPJ IV PRN (02:37)
[2019-09-25] MEDS: CITRIC ACID/SODIUM CITRATE SOLN 30ML UDC PO SCH ×2 (02:37→08:22)
[2019-09-25] MEDS: INSULIN LISPRO 100 UNITS/ML SUBCUT SCH ×4 (06:00→18:00)
[2019-09-25] MEDS: ACETAMINOPHEN 650MG/20.3ML UDC GT PRN (06:16)
[2019-09-25] MEDS: PIPERACILLIN/TAZOBACTAM 2.25 G in DEXTROSE 5% WATER 50 ML IV SCH ×3 (06:16→21:13)
[2019-09-25 06:25] LABS: BASOPHILS % 1.2 % (0.0-2.0); EOSINOPHILS % 0.2 % (0.0-5.0); HEMATOCRIT. 27.2 % (42.0-52.0); HEMOGLOBIN. 9.2 g/dL (14.0-18.0); LYMPHOCYTES % 8.5 % (20.0-50.0); MEAN CORPUSCULAR HEMOGLOBIN 34.7 pg (28.0-32.0); MEAN CORPUSCULAR VOLUME 102.8 fL (80.0-94.0); MEAN PLATELET VOLUME 10.1 fl (7.4-10.4); MONOCYTES % 10.3 % (2.0-8.0); NEUTROPHILS % 79.8 % (40.0-76.0); PLATELET 120 x1000/uL (130-400); RED BLOOD CELL COUNT 2.65 mill/uL (4.7-6.1); RED CELL DISTRIBUTION WIDTH 19.9 % (11.6-14.6)
[2019-09-25] MEDS: ASCORBIC ACID 500 MG TABLET PO SCH (08:22)
[2019-09-25] MEDS: ZINC SULFATE 220 MG ( 50 ) CAPSULE PO SCH (08:22)
[2019-09-25] MEDS: ENOXAPARIN 30MG/0.3ML SYR SUBCUT SCH (08:23)
[2019-09-25] MEDS ORDERED: FUROSEMIDE 40MG/4ML VIAL IVP SCH (11:30)
[2019-09-25] MEDS: DEXTROSE 5% WATER 1,000 ML IV SCH (11:37)
[2019-09-26] VITALS (90 sets, daily range): BP systolic 106–191; BP diastolic 49–111
[2019-09-26] MEDS: METOCLOPRAMIDE HCL 10MG/2ML VIAL IV SCH ×3 (00:30→12:00)
[2019-09-26] MEDS: BLOOD SUGAR DIAGNOSTIC STRIP TEST SCH ×3 (00:30→12:00)
[2019-09-26] MEDS: IPRATROPIUM/ALBUTEROL 0.5-3(2.5)MG/3ML NEB HHN SCH ×4 (02:16→20:20)
[2019-09-26] MEDS: PIPERACILLIN/TAZOBACTAM 2.25 G in DEXTROSE 5% WATER 50 ML IV SCH ×2 (05:35→22:00)
[2019-09-26] MEDS: INSULIN LISPRO 100 UNITS/ML SUBCUT SCH ×3 (05:54→12:00)
[2019-09-26 07:11] LABS: BASOPHILS % 1.2 % (0.0-2.0); EOSINOPHILS % 0.8 % (0.0-5.0); HEMATOCRIT. 26.3 % (42.0-52.0); HEMOGLOBIN. 8.7 g/dL (14.0-18.0); LYMPHOCYTES % 13.1 % (20.0-50.0); MEAN CORPUSCULAR HEMOGLOBIN 34.5 pg (28.0-32.0); MEAN CORPUSCULAR VOLUME 104.2 fL (80.0-94.0); MONOCYTES % 11.3 % (2.0-8.0); NEUTROPHILS % 73.6 % (40.0-76.0); PLATELET 103 x1000/uL (130-400); RED BLOOD CELL COUNT 2.53 mill/uL (4.7-6.1); RED CELL DISTRIBUTION WIDTH 20.1 % (11.6-14.6)
[2019-09-26 10:10] LABS: BG BASE EXCESS -2.2 mmol/L (-2.0-2.0); BG CARBOXYHEMOGLOBIN 0.1 % (0.5-1.5); BG DEOXYHEMOGLOBIN 1.5 % (0.0-5.0); BG FRACTION INSPIRED OXYGEN 35; BG METHEMOGLOBIN 0.3 % (0.0-1.5); BG OXYGEN SATURATION 98.5 % (92.0-98.5); BG OXYHEMOGLOBIN 98.1 % (94.0-97.0); BG PCO2 30.1 mmHg (35.0-45.0); BG PH 7.462 (7.350-7.450); BG PO2 122.1 mmHg (75.0-100.0); BG SAMPLE SITE RIGHT RADIAL; BG TIDAL VOLUME(mL) 500 mL; BG TOTAL HEMOGLOBIN 8.5 g/dL (12.0-18.0); BG VENT MODE VENT - A/C; BG VENT RATE 10 set
[2019-09-26] MEDS: DEXTROSE 5% WATER 1,000 ML IV SCH (10:17)
[2019-09-26] MEDS: ENOXAPARIN 30MG/0.3ML SYR SUBCUT SCH (10:17)
[2019-09-26] MEDS: ASCORBIC ACID 500 MG TABLET PO SCH (10:17)
[2019-09-26] MEDS: ZINC SULFATE 220 MG ( 50 ) CAPSULE PO SCH (10:19)
[2019-09-26] MEDS ORDERED: FUROSEMIDE 40MG/4ML VIAL IVP NR (11:30)
[2019-09-26] MEDS ORDERED: VANCOMYCIN 500 MG PREMIX 100 ML IV SCH (18:00)
[2019-09-26] MEDS: EPOETIN ALFA 10000UNITS/ML VIAL SUBCUT SCH (21:59)
[2019-09-27] VITALS (90 sets, daily range): BP systolic 80–182; BP diastolic 57–98
[2019-09-27] MEDS: METOCLOPRAMIDE HCL 10MG/2ML VIAL IV SCH ×5 (00:02→23:59)
[2019-09-27] MEDS: BLOOD SUGAR DIAGNOSTIC STRIP TEST SCH ×5 (00:07→23:59)
[2019-09-27] MEDS: IPRATROPIUM/ALBUTEROL 0.5-3(2.5)MG/3ML NEB HHN SCH ×4 (01:34→20:58)
[2019-09-27] MEDS: PIPERACILLIN/TAZOBACTAM 2.25 G in DEXTROSE 5% WATER 50 ML IV SCH ×3 (05:57→22:54)
[2019-09-27] MEDS: INSULIN LISPRO 100 UNITS/ML SUBCUT SCH ×5 (06:00→23:59)
[2019-09-27 06:03] LABS: BASOPHILS % 0.9 % (0.0-2.0); EOSINOPHILS % 0.7 % (0.0-5.0); HEMATOCRIT. 28.5 % (42.0-52.0); HEMOGLOBIN. 9.7 g/dL (14.0-18.0); LYMPHOCYTES % 16.3 % (20.0-50.0); MEAN CORPUSCULAR HEMOGLOBIN 35.2 pg (28.0-32.0); MEAN CORPUSCULAR VOLUME 102.9 fL (80.0-94.0); MEAN PLATELET VOLUME 9.8 fl (7.4-10.4); MONOCYTES % 10.3 % (2.0-8.0); NEUTROPHILS % 71.8 % (40.0-76.0); PLATELET 124 x1000/uL (130-400); RED BLOOD CELL COUNT 2.77 mill/uL (4.7-6.1); RED CELL DISTRIBUTION WIDTH 19.6 % (11.6-14.6)
[2019-09-27 08:42] LABS: BG BASE EXCESS -3.1 mmol/L (-2.0-2.0); BG CARBOXYHEMOGLOBIN 0.3 % (0.5-1.5); BG FRACTION INSPIRED OXYGEN 35; BG HCO3 ACT 20.5 mmol/L (22.0-26.0); BG METHEMOGLOBIN 0.3 % (0.0-1.5); BG OXYHEMOGLOBIN 97.4 % (94.0-97.0); BG PCO2 31.5 mmHg (35.0-45.0); BG PH 7.432 (7.350-7.450); BG PO2 122.1 mmHg (75.0-100.0); BG PRESSURE SUPPORT 12; BG SAMPLE SITE RIGHT RADIAL; BG TIDAL VOLUME(mL) 500 mL; BG TOTAL HEMOGLOBIN 9.9 g/dL (12.0-18.0); BG VENT MODE VENT - SIMV; BG VENT RATE 6 set
[2019-09-27] MEDS: ASCORBIC ACID 500 MG TABLET PO SCH (09:41)
[2019-09-27] MEDS: ENOXAPARIN 30MG/0.3ML SYR SUBCUT SCH (09:41)
[2019-09-27] MEDS: ZINC SULFATE 220 MG ( 50 ) CAPSULE PO SCH (09:41)
[2019-09-27] MEDS: DEXTROSE 5% WATER 1,000 ML IV SCH (09:42)
[2019-09-27] MEDS ORDERED: POTASSIUM CHLORIDE 20MEQ/PACKET PO NR (10:00)
[2019-09-27] MEDS ORDERED: LIDOCAINE HCL 1% 20ML VIAL (Pyxis) INJ ONE (11:51)
[2019-09-27] MEDS: MORPHINE SULFATE 2 MG/ML CPJ (NOT FOR IM USE) IV PRN (13:45)
[2019-09-27 16:25] LABS: INR 1.1; PARTIAL THROMBOPLASTIN TIME 41.3 sec (23.4-31.0); PROTHROMBIN TIME 12.4 sec (9.6-11.0)
[2019-09-28] VITALS (57 sets, daily range): BP systolic 83–185; BP diastolic 45–123
[2019-09-28] MEDS: IPRATROPIUM/ALBUTEROL 0.5-3(2.5)MG/3ML NEB HHN SCH ×4 (01:51→20:20)
[2019-09-28] MEDS: MORPHINE SULFATE 2 MG/ML CPJ (NOT FOR IM USE) IV PRN (05:53)
[2019-09-28] MEDS: INSULIN LISPRO 100 UNITS/ML SUBCUT SCH ×4 (06:00→23:58)
[2019-09-28] MEDS: METOCLOPRAMIDE HCL 10MG/2ML VIAL IV SCH ×3 (06:02→23:57)
[2019-09-28] MEDS: PIPERACILLIN/TAZOBACTAM 2.25 G in DEXTROSE 5% WATER 50 ML IV SCH ×3 (06:02→21:47)
[2019-09-28] MEDS: BLOOD SUGAR DIAGNOSTIC STRIP TEST SCH ×4 (06:02→23:57)
[2019-09-28] MEDS: ACETAMINOPHEN 650MG/20.3ML UDC GT PRN (06:41)
[2019-09-28 07:07] LABS: BASOPHILS % 0.5 % (0.0-2.0); EOSINOPHILS % 0.7 % (0.0-5.0); HEMATOCRIT. 34.1 % (42.0-52.0); HEMOGLOBIN. 11.1 g/dL (14.0-18.0); LYMPHOCYTES % 20.2 % (20.0-50.0); MEAN CORPUSCULAR HEMOGLOBIN 34.4 pg (28.0-32.0); MEAN CORPUSCULAR VOLUME 106.1 fL (80.0-94.0); MEAN PLATELET VOLUME 9.4 fl (7.4-10.4); MONOCYTES % 7.5 % (2.0-8.0); NEUTROPHILS % 71.1 % (40.0-76.0); PLATELET 209 x1000/uL (130-400); RED BLOOD CELL COUNT 3.21 mill/uL (4.7-6.1); RED CELL DISTRIBUTION WIDTH 19.6 % (11.6-14.6)
[2019-09-28] MEDS: ZINC SULFATE 220 MG ( 50 ) CAPSULE PO SCH (08:41)
[2019-09-28] MEDS: ENOXAPARIN 30MG/0.3ML SYR SUBCUT SCH (08:41)
[2019-09-28] MEDS: ASCORBIC ACID 500 MG TABLET PO SCH (08:41)
[2019-09-28] MEDS ORDERED: POTASSIUM CHLORIDE INJ 40 MEQ in DEXT 5% WATER 250 ML IV NR (11:00)
[2019-09-28] MEDS: METOPROLOL TARTRATE 25MG TABLET PO SCH ×2 (12:00→21:00)
[2019-09-28 14:51] LABS: HEPATITIS B SURFACE AB < 3.1 mIU/mL
[2019-09-28] MEDS ORDERED: VANCOMYCIN 500 MG PREMIX 100 ML IV NR (15:00)
[2019-09-28 15:01] LABS: HEPATITIS B SURFACE ANTIGEN NEGATIVE
[2019-09-28 15:04] LABS: HEPATITIS A AB IGM NEGATIVE (NEGATIVE)
[2019-09-29] VITALS (70 sets, daily range): BP systolic 82–123; BP diastolic 34–83
[2019-09-29] MEDS: IPRATROPIUM/ALBUTEROL 0.5-3(2.5)MG/3ML NEB HHN SCH ×4 (01:43→20:04)
[2019-09-29] MEDS: INSULIN LISPRO 100 UNITS/ML SUBCUT SCH ×3 (05:45→17:47)
[2019-09-29] MEDS: BLOOD SUGAR DIAGNOSTIC STRIP TEST SCH ×3 (05:45→17:47)
[2019-09-29] MEDS: METOCLOPRAMIDE HCL 10MG/2ML VIAL IV SCH ×4 (05:55→23:53)
[2019-09-29] MEDS: ASCORBIC ACID 500 MG TABLET PO SCH (09:14)
[2019-09-29] MEDS: ENOXAPARIN 30MG/0.3ML SYR SUBCUT SCH (09:14)
[2019-09-29] MEDS: METOPROLOL TARTRATE 25MG TABLET PO SCH ×2 (09:14→21:00)
[2019-09-29] MEDS: ZINC SULFATE 220 MG ( 50 ) CAPSULE PO SCH (09:14)
[2019-09-29 10:27] LABS: BASOPHILS % 0.9 % (0.0-2.0); EOSINOPHILS % 0.7 % (0.0-5.0); HEMATOCRIT. 28.9 % (42.0-52.0); HEMOGLOBIN. 9.6 g/dL (14.0-18.0); LYMPHOCYTES % 14.5 % (20.0-50.0); MEAN CORPUSCULAR HEMOGLOBIN 34.6 pg (28.0-32.0); MEAN CORPUSCULAR VOLUME 104.3 fL (80.0-94.0); MEAN PLATELET VOLUME 9.4 fl (7.4-10.4); MONOCYTES % 8.2 % (2.0-8.0); NEUTROPHILS % 75.7 % (40.0-76.0); PLATELET 191 x1000/uL (130-400); RED BLOOD CELL COUNT 2.77 mill/uL (4.7-6.1); RED CELL DISTRIBUTION WIDTH 19.5 % (11.6-14.6)
[2019-09-29] MEDS ORDERED: POTASSIUM CHLORIDE 20MEQ/PACKET PO SCH (10:40)
[2019-09-29] MEDS: ACETAMINOPHEN 650MG/20.3ML UDC GT PRN (12:16)
[2019-09-30] VITALS (35 sets, daily range): BP systolic 74–177; BP diastolic 41–112
[2019-09-30] MEDS: IPRATROPIUM/ALBUTEROL 0.5-3(2.5)MG/3ML NEB HHN SCH ×4 (01:40→20:28)
[2019-09-30] MEDS: METOCLOPRAMIDE HCL 10MG/2ML VIAL IV SCH ×3 (05:22→23:18)
[2019-09-30] MEDS: INSULIN LISPRO 100 UNITS/ML SUBCUT SCH ×5 (06:00→23:18)
[2019-09-30] MEDS ORDERED: POTASSIUM CHLORIDE 20MEQ/PACKET PO NR (06:15)
[2019-09-30 06:18] LABS: BASOPHILS % 0.6 % (0.0-2.0); EOSINOPHILS % 0.8 % (0.0-5.0); HEMATOCRIT. 29.5 % (42.0-52.0); HEMOGLOBIN. 9.5 g/dL (14.0-18.0); LYMPHOCYTES % 11.2 % (20.0-50.0); MEAN CORPUSCULAR HEMOGLOBIN 34.1 pg (28.0-32.0); MEAN CORPUSCULAR VOLUME 106.1 fL (80.0-94.0); MEAN PLATELET VOLUME 9.5 fl (7.4-10.4); MONOCYTES % 6.3 % (2.0-8.0); NEUTROPHILS % 81.1 % (40.0-76.0); PLATELET 209 x1000/uL (130-400); RED BLOOD CELL COUNT 2.78 mill/uL (4.7-6.1); RED CELL DISTRIBUTION WIDTH 19.2 % (11.6-14.6)
[2019-09-30] MEDS: BLOOD SUGAR DIAGNOSTIC STRIP TEST SCH ×5 (06:24→23:18)
[2019-09-30] MEDS: ASCORBIC ACID 500 MG TABLET PO SCH (09:20)
[2019-09-30] MEDS: ENOXAPARIN 30MG/0.3ML SYR SUBCUT SCH (09:20)
[2019-09-30] MEDS: ZINC SULFATE 220 MG ( 50 ) CAPSULE PO SCH (09:21)
[2019-09-30] MEDS: METOPROLOL TARTRATE 25MG TABLET PO SCH ×2 (09:21→21:00)
[2019-09-30 10:07] LABS: BG BASE EXCESS 0.5 mmol/L (-2.0-2.0); BG CARBOXYHEMOGLOBIN 0.1 % (0.5-1.5); BG DEOXYHEMOGLOBIN 1.4 % (0.0-5.0); BG FRACTION INSPIRED OXYGEN 35; BG HCO3 ACT 23.9 mmol/L (22.0-26.0); BG METHEMOGLOBIN 0.3 % (0.0-1.5); BG OXYGEN SATURATION 98.6 % (92.0-98.5); BG OXYHEMOGLOBIN 98.2 % (94.0-97.0); BG PCO2 33.7 mmHg (35.0-45.0); BG PH 7.468 (7.350-7.450); BG PO2 116.7 mmHg (75.0-100.0); BG SAMPLE SITE RIGHT RADIAL; BG TIDAL VOLUME(mL) 500 mL; BG TOTAL HEMOGLOBIN 10.2 g/dL (12.0-18.0); BG VENT MODE VENT - A/C; BG VENT RATE 10 set
[2019-09-30 13:40] LABS: BG CARBOXYHEMOGLOBIN 0.3 % (0.5-1.5); BG DEOXYHEMOGLOBIN 2.1 % (0.0-5.0); BG FRACTION INSPIRED OXYGEN 35; BG HCO3 ACT 24.4 mmol/L (22.0-26.0); BG OXYGEN SATURATION 97.9 % (92.0-98.5); BG OXYHEMOGLOBIN 97.6 % (94.0-97.0); BG PCO2 34.5 mmHg (35.0-45.0); BG PH 7.468 (7.350-7.450); BG PO2 105.6 mmHg (75.0-100.0); BG PRESSURE SUPPORT 8; BG SAMPLE SITE RIGHT RADIAL; BG TOTAL HEMOGLOBIN 9.8 g/dL (12.0-18.0); BG VENT MODE VENT - CPAP
[2019-09-30] MEDS: EPOETIN ALFA 10000UNITS/ML VIAL SUBCUT SCH (21:31)
[2019-09-30] MEDS: MORPHINE SULFATE 2 MG/ML CPJ (NOT FOR IM USE) IV PRN (23:44)
[2019-10-01] VITALS (38 sets, daily range): BP systolic 105–173; BP diastolic 64–114
[2019-10-01] MEDS: IPRATROPIUM/ALBUTEROL 0.5-3(2.5)MG/3ML NEB HHN SCH ×4 (01:37→20:25)
[2019-10-01] MEDS: METOCLOPRAMIDE HCL 10MG/2ML VIAL IV SCH ×4 (05:45→23:09)
[2019-10-01] MEDS: BLOOD SUGAR DIAGNOSTIC STRIP TEST SCH ×4 (05:46→23:09)
[2019-10-01] MEDS: INSULIN LISPRO 100 UNITS/ML SUBCUT SCH ×4 (05:46→23:09)
[2019-10-01] MEDS: MORPHINE SULFATE 2 MG/ML CPJ (NOT FOR IM USE) IV PRN ×2 (05:47→13:19)
[2019-10-01 06:40] LABS: BASOPHILS % 0.8 % (0.0-2.0); EOSINOPHILS % 1.1 % (0.0-5.0); HEMATOCRIT. 28.9 % (42.0-52.0); HEMOGLOBIN. 9.3 g/dL (14.0-18.0); LYMPHOCYTES % 13.1 % (20.0-50.0); MEAN CORPUSCULAR HEMOGLOBIN 33.9 pg (28.0-32.0); MEAN CORPUSCULAR VOLUME 104.9 fL (80.0-94.0); MEAN PLATELET VOLUME 9.5 fl (7.4-10.4); MONOCYTES % 4.6 % (2.0-8.0); NEUTROPHILS % 80.4 % (40.0-76.0); PLATELET 208 x1000/uL (130-400); RED BLOOD CELL COUNT 2.75 mill/uL (4.7-6.1); RED CELL DISTRIBUTION WIDTH 18.7 % (11.6-14.6)
[2019-10-01 07:30] LABS: PHOSPHORUS 1.8 mg/dL (2.5-4.9)
[2019-10-01] MEDS: METOPROLOL TARTRATE 25MG TABLET PO SCH ×2 (09:18→21:06)
[2019-10-01] MEDS: ZINC SULFATE 220 MG ( 50 ) CAPSULE PO SCH (09:19)
[2019-10-01] MEDS: ASCORBIC ACID 500 MG TABLET PO SCH (09:19)
[2019-10-01] MEDS: ENOXAPARIN 30MG/0.3ML SYR SUBCUT SCH (09:19)
[2019-10-01] MEDS ORDERED: POTASSIUM PHOS,M-BASIC-D-BASIC 10 MMOL in DEXT 5% WATER 246.6667 ML IV NR (13:30)
[2019-10-02] VITALS (35 sets, daily range): BP systolic 98–153; BP diastolic 62–108
[2019-10-02] MEDS: IPRATROPIUM/ALBUTEROL 0.5-3(2.5)MG/3ML NEB HHN SCH ×4 (02:25→20:18)
[2019-10-02] MEDS: INSULIN LISPRO 100 UNITS/ML SUBCUT SCH ×3 (06:00→17:10)
[2019-10-02] MEDS: BLOOD SUGAR DIAGNOSTIC STRIP TEST SCH ×3 (06:00→17:10)
[2019-10-02] MEDS: ENOXAPARIN 30MG/0.3ML SYR SUBCUT SCH (08:54)
[2019-10-02] MEDS: ASCORBIC ACID 500 MG TABLET PO SCH (08:54)
[2019-10-02] MEDS: ZINC SULFATE 220 MG ( 50 ) CAPSULE PO SCH (08:55)
[2019-10-02] MEDS: METOPROLOL TARTRATE 25MG TABLET PO SCH ×2 (08:55→22:33)
[2019-10-02 09:43] LABS: BASOPHILS % 1.3 % (0.0-2.0); EOSINOPHILS % 1.3 % (0.0-5.0); HEMATOCRIT. 30.1 % (42.0-52.0); HEMOGLOBIN. 9.8 g/dL (14.0-18.0); MEAN CORPUSCULAR HEMOGLOBIN 34.4 pg (28.0-32.0); MEAN PLATELET VOLUME 8.9 fl (7.4-10.4); MONOCYTES % 4.6 % (2.0-8.0); NEUTROPHILS % 83.8 % (40.0-76.0); PLATELET 218 x1000/uL (130-400); RED BLOOD CELL COUNT 2.84 mill/uL (4.7-6.1); RED CELL DISTRIBUTION WIDTH 18.8 % (11.6-14.6)
[2019-10-02 09:49] LABS: CHLORIDE 113 mEq/L (98-107)
[2019-10-02] MEDS ORDERED: HEPARIN SODIUM 1,000 UNIT/1ML VIAL IV SCH (11:45)
[2019-10-02] MEDS: METOCLOPRAMIDE HCL 10MG/2ML VIAL IV SCH ×3 (12:00→23:28)
[2019-10-03] VITALS: BP 114/78
[2019-10-03] MEDS: BLOOD SUGAR DIAGNOSTIC STRIP TEST SCH ×4 (00:26→17:55)
[2019-10-03 04:00] VITALS: BP 130/73
[2019-10-03] MEDS: METOCLOPRAMIDE HCL 10MG/2ML VIAL IV SCH ×3 (05:07→18:07)
[2019-10-03] MEDS: INSULIN LISPRO 100 UNITS/ML SUBCUT SCH ×4 (06:00→17:55)
[2019-10-03 06:06] LABS: BASOPHILS % 1.2 % (0.0-2.0); EOSINOPHILS % 1.5 % (0.0-5.0); HEMATOCRIT. 29.8 % (42.0-52.0); HEMOGLOBIN. 9.5 g/dL (14.0-18.0); LYMPHOCYTES % 9.1 % (20.0-50.0); MEAN CORPUSCULAR HEMOGLOBIN 33.8 pg (28.0-32.0); MEAN CORPUSCULAR VOLUME 106.2 fL (80.0-94.0); MONOCYTES % 5.2 % (2.0-8.0); PLATELET 185 x1000/uL (130-400); RED BLOOD CELL COUNT 2.81 mill/uL (4.7-6.1); RED CELL DISTRIBUTION WIDTH 18.9 % (11.6-14.6)
[2019-10-03 08:00] VITALS: BP 126/76
[2019-10-03] MEDS: ACETAMINOPHEN 650MG/20.3ML UDC GT PRN (08:50)
[2019-10-03] MEDS: ZINC SULFATE 220 MG ( 50 ) CAPSULE PO SCH (08:50)
[2019-10-03] MEDS: ASCORBIC ACID 500 MG TABLET PO SCH (08:50)
[2019-10-03] MEDS: ENOXAPARIN 30MG/0.3ML SYR SUBCUT SCH (08:51)
[2019-10-03] MEDS: IPRATROPIUM/ALBUTEROL 0.5-3(2.5)MG/3ML NEB HHN SCH ×3 (09:52→15:21)
[2019-10-03 11:42] VITALS: BP 116/70
[2019-10-03 12:00] VITALS: BP 116/70
[2019-10-03] MEDS: METOPROLOL TARTRATE 25MG TABLET PO SCH ×2 (13:03→22:28)
[2019-10-03 16:00] VITALS: BP 121/75
[2019-10-04] VITALS (7 sets, daily range): BP systolic 106–141; BP diastolic 58–91
[2019-10-04] MEDS: BLOOD SUGAR DIAGNOSTIC STRIP TEST SCH ×4 (00:05→17:44)
[2019-10-04] MEDS: EPOETIN ALFA 10000UNITS/ML VIAL SUBCUT SCH (02:13)
[2019-10-04] MEDS: METOCLOPRAMIDE HCL 10MG/2ML VIAL IV SCH ×4 (02:13→18:05)
[2019-10-04] MEDS: ACETAMINOPHEN 650MG/20.3ML UDC GT PRN ×2 (02:25→21:20)
[2019-10-04] MEDS: INSULIN LISPRO 100 UNITS/ML SUBCUT SCH ×4 (06:00→17:44)
[2019-10-04 06:45] LABS: BASOPHILS % 0.9 % (0.0-2.0); EOSINOPHILS % 1.6 % (0.0-5.0); HEMATOCRIT. 32.7 % (42.0-52.0); HEMOGLOBIN. 10.6 g/dL (14.0-18.0); LYMPHOCYTES % 10.9 % (20.0-50.0); MEAN CORPUSCULAR HEMOGLOBIN 34.1 pg (28.0-32.0); MEAN CORPUSCULAR VOLUME 105.6 fL (80.0-94.0); MEAN PLATELET VOLUME 10.3 fl (7.4-10.4); MONOCYTES % 5.1 % (2.0-8.0); NEUTROPHILS % 81.5 % (40.0-76.0); PLATELET 167 x1000/uL (130-400); RED BLOOD CELL COUNT 3.09 mill/uL (4.7-6.1); RED CELL DISTRIBUTION WIDTH 18.9 % (11.6-14.6)
[2019-10-04] MEDS: ZINC SULFATE 220 MG ( 50 ) CAPSULE PO SCH (08:26)
[2019-10-04] MEDS: ASCORBIC ACID 500 MG TABLET PO SCH (08:26)
[2019-10-04] MEDS: ENOXAPARIN 30MG/0.3ML SYR SUBCUT SCH (08:26)
[2019-10-04] MEDS: METOPROLOL TARTRATE 25MG TABLET PO SCH (08:26)
[2019-10-04] MEDS: METOPROLOL TARTRATE 5MG/5ML VIAL IV SCH ×2 (12:00→18:04)
[2019-10-04] MEDS: PIPERACILLIN/TAZOBACTAM 2.25 G in DEXTROSE 5% WATER 50 ML IV SCH ×2 (14:26→22:13)
[2019-10-04] MEDS: IPRATROPIUM BROMIDE (0.02%) 0.5MG/2.5ML NEB HHN SCH (20:20)
[2019-10-05] MEDS: METOPROLOL TARTRATE 5MG/5ML VIAL IV SCH ×5 (00:12→23:11)
[2019-10-05] MEDS: METOCLOPRAMIDE HCL 10MG/2ML VIAL IV SCH ×5 (00:13→23:11)
[2019-10-05] MEDS: IPRATROPIUM BROMIDE (0.02%) 0.5MG/2.5ML NEB HHN SCH ×4 (03:26→21:51)
[2019-10-05 04:00] VITALS: BP 132/82
[2019-10-05] MEDS: BLOOD SUGAR DIAGNOSTIC STRIP TEST SCH ×5 (05:50→23:12)
[2019-10-05] MEDS: INSULIN LISPRO 100 UNITS/ML SUBCUT SCH ×5 (05:54→23:12)
[2019-10-05] MEDS: PIPERACILLIN/TAZOBACTAM 2.25 G in DEXTROSE 5% WATER 50 ML IV SCH ×3 (06:01→21:03)
[2019-10-05 07:27] LABS: CLARITY URINE TURBID (CLEAR); COLOR URINE DARK YELLOW (YELLOW); KETONES URINE TRACE (NEGATIVE); LEUKOCYTE ESTERASE URINE 3+ (NEGATIVE); NITRITE URINE NEGATIVE (NEGATIVE); OCCULT BLOOD URINE 3+ (NEGATIVE); PH URINE 5.5 (4.5-8.0); PROTEIN URINE 3+ (NEGATIVE); SPECIFIC GRAVITY URINE 1.022 (1.005-1.030)
[2019-10-05 07:28] LABS: BASOPHILS % 1.2 % (0.0-2.0); EOSINOPHILS % 1.8 % (0.0-5.0); HEMATOCRIT. 30.9 % (42.0-52.0); HEMOGLOBIN. 9.9 g/dL (14.0-18.0); LYMPHOCYTES % 11.1 % (20.0-50.0); MEAN CORPUSCULAR HEMOGLOBIN 33.7 pg (28.0-32.0); MEAN CORPUSCULAR VOLUME 105.5 fL (80.0-94.0); MEAN PLATELET VOLUME 9.6 fl (7.4-10.4); NEUTROPHILS % 79.9 % (40.0-76.0); PLATELET 148 x1000/uL (130-400); RED BLOOD CELL COUNT 2.92 mill/uL (4.7-6.1); RED CELL DISTRIBUTION WIDTH 18.6 % (11.6-14.6)
[2019-10-05 08:00] VITALS: BP 135/85
[2019-10-05] MEDS: ENOXAPARIN 30MG/0.3ML SYR SUBCUT SCH (08:47)
[2019-10-05] MEDS: ZINC SULFATE 220 MG ( 50 ) CAPSULE PO SCH (08:47)
[2019-10-05] MEDS: ASCORBIC ACID 500 MG TABLET PO SCH (08:47)
[2019-10-05 12:00] VITALS: BP 126/78
[2019-10-05] MEDS: LACTULOSE 20G/30ML UDC NG SCH ×3 (12:10→23:00)
[2019-10-05] MEDS: RIFAXIMIN 550 MG TABLET NG SCH ×2 (12:11→20:47)
[2019-10-05 16:00] VITALS: BP 142/90
[2019-10-05 20:12] VITALS: BP 134/82
[2019-10-05 23:55] VITALS: BP 132/87
[2019-10-05] MEDS: EPOETIN ALFA 10000UNITS/ML VIAL SUBCUT SCH (23:58)
[2019-10-06] MEDS: IPRATROPIUM BROMIDE (0.02%) 0.5MG/2.5ML NEB HHN SCH ×4 (01:31→21:31)
[2019-10-06 04:41] VITALS: BP 146/89
[2019-10-06 05:55] LABS: INR 1.1; PARTIAL THROMBOPLASTIN TIME 31.4 sec (23.4-31.0); PROTHROMBIN TIME 11.8 sec (9.6-11.0)
[2019-10-06] MEDS: LACTULOSE 20G/30ML UDC NG SCH ×3 (06:00→21:14)
[2019-10-06] MEDS: INSULIN LISPRO 100 UNITS/ML SUBCUT SCH ×3 (06:00→18:00)
[2019-10-06 06:34] LABS: BASOPHILS % 0.9 % (0.0-2.0); EOSINOPHILS % 1.4 % (0.0-5.0); HEMATOCRIT. 31.8 % (42.0-52.0); HEMOGLOBIN. 10.2 g/dL (14.0-18.0); LYMPHOCYTES % 8.4 % (20.0-50.0); MEAN CORPUSCULAR HEMOGLOBIN 33.6 pg (28.0-32.0); MEAN CORPUSCULAR VOLUME 104.1 fL (80.0-94.0); MEAN PLATELET VOLUME 10.3 fl (7.4-10.4); MONOCYTES % 7.3 % (2.0-8.0); PLATELET 195 x1000/uL (130-400); RED BLOOD CELL COUNT 3.05 mill/uL (4.7-6.1); RED CELL DISTRIBUTION WIDTH 17.8 % (11.6-14.6)
[2019-10-06] MEDS: PIPERACILLIN/TAZOBACTAM 2.25 G in DEXTROSE 5% WATER 50 ML IV SCH ×3 (06:35→21:18)
[2019-10-06] MEDS: METOPROLOL TARTRATE 5MG/5ML VIAL IV SCH ×4 (06:36→18:00)
[2019-10-06] MEDS: BLOOD SUGAR DIAGNOSTIC STRIP TEST SCH ×3 (06:36→18:00)
[2019-10-06] MEDS: METOCLOPRAMIDE HCL 10MG/2ML VIAL IV SCH ×3 (06:36→18:51)
[2019-10-06 08:00] VITALS: BP 140/94
[2019-10-06] MEDS ORDERED: ACETAMINOPHEN 650MG/20.3ML UDC NG NR (09:00)
[2019-10-06] MEDS: ZINC SULFATE 220 MG ( 50 ) CAPSULE PO SCH (10:11)
[2019-10-06] MEDS: RIFAXIMIN 550 MG TABLET NG SCH ×2 (10:11→21:14)
[2019-10-06] MEDS: ASCORBIC ACID 500 MG TABLET PO SCH (10:11)
[2019-10-06 12:00] VITALS: BP 129/49
[2019-10-06] MEDS ORDERED: SODIUM CHLORIDE 0.9% 500 ML IV ONE (13:30)
[2019-10-06] MEDS ORDERED: MORPHINE SULFATE 2 MG/ML CPJ (NOT FOR IM USE) IV SCH (13:30)
[2019-10-06 14:54] LABS: BG BASE EXCESS 0.4 mmol/L (-2.0-2.0); BG CARBOXYHEMOGLOBIN 0.3 % (0.5-1.5); BG DEOXYHEMOGLOBIN 8.1 % (0.0-5.0); BG FRACTION INSPIRED OXYGEN 28; BG HCO3 ACT 24.3 mmol/L (22.0-26.0); BG METHEMOGLOBIN 0.4 % (0.0-1.5); BG OXYGEN SATURATION 91.8 % (92.0-98.5); BG OXYHEMOGLOBIN 91.2 % (94.0-97.0); BG PCO2 36.3 mmHg (35.0-45.0); BG PH 7.443 (7.350-7.450); BG PO2 64.9 mmHg (75.0-100.0); BG SAMPLE SITE RIGHT RADIAL; BG TOTAL HEMOGLOBIN 10.1 g/dL (12.0-18.0); BG VENT MODE NASAL CANNULA
[2019-10-06 16:00] VITALS: BP 100/67
[2019-10-06 20:14] VITALS: BP 128/85
[2019-10-07 00:14] VITALS: BP 156/56
[2019-10-07] MEDS: BLOOD SUGAR DIAGNOSTIC STRIP TEST SCH ×4 (00:45→18:34)
[2019-10-07] MEDS: METOCLOPRAMIDE HCL 10MG/2ML VIAL IV SCH ×4 (00:45→17:51)
[2019-10-07] MEDS: METOPROLOL TARTRATE 5MG/5ML VIAL IV SCH ×4 (00:45→17:51)
[2019-10-07] MEDS: IPRATROPIUM BROMIDE (0.02%) 0.5MG/2.5ML NEB HHN SCH ×3 (01:45→20:56)
[2019-10-07 04:11] VITALS: BP 153/70
[2019-10-07] MEDS: INSULIN LISPRO 100 UNITS/ML SUBCUT SCH ×4 (06:00→18:00)
[2019-10-07] MEDS: LACTULOSE 20G/30ML UDC NG SCH ×3 (06:09→21:52)
[2019-10-07] MEDS: PIPERACILLIN/TAZOBACTAM 2.25 G in DEXTROSE 5% WATER 50 ML IV SCH ×3 (06:09→21:52)
[2019-10-07 06:27] LABS: BASOPHILS % 1.1 % (0.0-2.0); EOSINOPHILS % 2.3 % (0.0-5.0); HEMATOCRIT. 33.5 % (42.0-52.0); HEMOGLOBIN. 10.7 g/dL (14.0-18.0); MEAN CORPUSCULAR HEMOGLOBIN 33.9 pg (28.0-32.0); MEAN CORPUSCULAR VOLUME 106.1 fL (80.0-94.0); MONOCYTES % 8.1 % (2.0-8.0); NEUTROPHILS % 75.5 % (40.0-76.0); RED BLOOD CELL COUNT 3.16 mill/uL (4.7-6.1); RED CELL DISTRIBUTION WIDTH 18.7 % (11.6-14.6)
[2019-10-07 07:57] LABS: MEAN PLATELET VOLUME 10.5 fl (7.4-10.4)
[2019-10-07 07:58] LABS: PLATELET 182 x1000/uL (130-400)
[2019-10-07] MEDS ORDERED: LIDOCAINE HCL 1% 20ML VIAL (Pyxis) INJ ONE (07:59)
[2019-10-07] MEDS ORDERED: SODIUM BICARBONATE 4% (2.4MEQ) 5ML VIAL IV ONE (07:59)
[2019-10-07 08:00] VITALS: BP 130/86
[2019-10-07] MEDS: ASCORBIC ACID 500 MG TABLET PO SCH (09:58)
[2019-10-07] MEDS: RIFAXIMIN 550 MG TABLET NG SCH ×2 (09:59→21:52)
[2019-10-07] MEDS: ZINC SULFATE 220 MG ( 50 ) CAPSULE PO SCH (09:59)
[2019-10-07] MEDS: DILTIAZEM HCL 60MG TABLET NG SCH ×3 (10:01→21:52)
[2019-10-07] MEDS: ACETAMINOPHEN 650MG/20.3ML UDC GT PRN (11:16)
[2019-10-07 12:00] VITALS: BP 111/63
[2019-10-07 16:00] VITALS: BP 105/76
[2019-10-07 20:00] VITALS: BP 97/62
[2019-10-08] VITALS: BP 118/75
[2019-10-08] MEDS: BLOOD SUGAR DIAGNOSTIC STRIP TEST SCH ×4 (00:33→18:10)
[2019-10-08] MEDS: METOCLOPRAMIDE HCL 10MG/2ML VIAL IV SCH ×4 (00:33→18:15)
[2019-10-08] MEDS: EPOETIN ALFA 10000UNITS/ML VIAL SUBCUT SCH (00:33)
[2019-10-08] MEDS: IPRATROPIUM BROMIDE (0.02%) 0.5MG/2.5ML NEB HHN SCH ×3 (01:00→22:08)
[2019-10-08 04:00] VITALS: BP 94/60
[2019-10-08] MEDS: LACTULOSE 20G/30ML UDC NG SCH ×3 (05:17→21:41)
[2019-10-08] MEDS: PIPERACILLIN/TAZOBACTAM 2.25 G in DEXTROSE 5% WATER 50 ML IV SCH ×3 (05:17→21:40)
[2019-10-08] MEDS: METOPROLOL TARTRATE 5MG/5ML VIAL IV SCH ×2 (05:17)
[2019-10-08] MEDS: DILTIAZEM HCL 60MG TABLET NG SCH (05:17)
[2019-10-08] MEDS: INSULIN LISPRO 100 UNITS/ML SUBCUT SCH ×4 (05:34→18:00)
[2019-10-08 06:33] LABS: BASOPHILS % 0.9 % (0.0-2.0); EOSINOPHILS % 4.5 % (0.0-5.0); HEMATOCRIT. 32.2 % (42.0-52.0); HEMOGLOBIN. 10.1 g/dL (14.0-18.0); LYMPHOCYTES % 15.3 % (20.0-50.0); MEAN CORPUSCULAR HEMOGLOBIN 33.1 pg (28.0-32.0); MEAN CORPUSCULAR VOLUME 105.7 fL (80.0-94.0); MEAN PLATELET VOLUME 10.1 fl (7.4-10.4); MONOCYTES % 7.4 % (2.0-8.0); NEUTROPHILS % 71.9 % (40.0-76.0); PLATELET 176 x1000/uL (130-400); RED BLOOD CELL COUNT 3.05 mill/uL (4.7-6.1); RED CELL DISTRIBUTION WIDTH 17.9 % (11.6-14.6)
[2019-10-08] MEDS: ASCORBIC ACID 500 MG TABLET PO SCH (08:09)
[2019-10-08] MEDS: RIFAXIMIN 550 MG TABLET NG SCH ×2 (08:09→21:40)
[2019-10-08] MEDS: ZINC SULFATE 220 MG ( 50 ) CAPSULE PO SCH (08:09)
[2019-10-08 08:11] VITALS: BP 98/67
[2019-10-08] MEDS: METOPROLOL TARTRATE 25MG TABLET NG SCH ×2 (09:31→21:41)
[2019-10-08] MEDS: DILTIAZEM HCL 30MG TABLET NG SCH ×2 (11:21→17:56)
[2019-10-08 12:08] VITALS: BP 114/77
[2019-10-08] MEDS ORDERED: HEPARIN SODIUM 1,000 UNIT/1ML VIAL IV SCH (13:15)
[2019-10-08 16:36] VITALS: BP 102/61
[2019-10-08] MEDS: FLUCONAZOLE 200 MG/100ML BAG 100 ML IV SCH (16:55)
[2019-10-08 20:00] VITALS: BP 103/70
[2019-10-09] VITALS: BP 116/76
[2019-10-09] MEDS: BLOOD SUGAR DIAGNOSTIC STRIP TEST SCH ×5 (00:15→23:58)
[2019-10-09] MEDS: METOCLOPRAMIDE HCL 10MG/2ML VIAL IV SCH ×5 (00:16→23:53)
[2019-10-09] MEDS: DILTIAZEM HCL 30MG TABLET NG SCH ×4 (00:17→21:39)
[2019-10-09] MEDS: IPRATROPIUM BROMIDE (0.02%) 0.5MG/2.5ML NEB HHN SCH ×4 (02:58→21:00)
[2019-10-09 04:00] VITALS: BP 110/73
[2019-10-09] MEDS: LACTULOSE 20G/30ML UDC NG SCH ×3 (05:20→21:48)
[2019-10-09] MEDS: PIPERACILLIN/TAZOBACTAM 2.25 G in DEXTROSE 5% WATER 50 ML IV SCH ×3 (05:22→21:41)
[2019-10-09] MEDS: INSULIN LISPRO 100 UNITS/ML SUBCUT SCH ×5 (06:00→23:58)
[2019-10-09 06:18] LABS: BASOPHILS % 2.5 % (0.0-2.0); EOSINOPHILS % 4.4 % (0.0-5.0); HEMATOCRIT. 31.5 % (42.0-52.0); HEMOGLOBIN. 10.2 g/dL (14.0-18.0); LYMPHOCYTES % 14.3 % (20.0-50.0); MEAN CORPUSCULAR HEMOGLOBIN 34.1 pg (28.0-32.0); MEAN CORPUSCULAR VOLUME 105.7 fL (80.0-94.0); MEAN PLATELET VOLUME 9.7 fl (7.4-10.4); NEUTROPHILS % 68.8 % (40.0-76.0); PLATELET 152 x1000/uL (130-400); RED BLOOD CELL COUNT 2.98 mill/uL (4.7-6.1)
[2019-10-09 08:00] VITALS: BP 127/79
[2019-10-09] MEDS ORDERED: POTASSIUM CHLORIDE 20MEQ/PACKET PO NR (09:00)
[2019-10-09] MEDS: ZINC SULFATE 220 MG ( 50 ) CAPSULE PO SCH (09:23)
[2019-10-09] MEDS: RIFAXIMIN 550 MG TABLET NG SCH ×2 (09:23→21:39)
[2019-10-09] MEDS: METOPROLOL TARTRATE 25MG TABLET NG SCH ×2 (09:24→21:40)
[2019-10-09] MEDS: ASCORBIC ACID 500 MG TABLET PO SCH (09:24)
[2019-10-09 12:00] VITALS: BP 128/80
[2019-10-09 16:00] VITALS: BP 141/90
[2019-10-09] MEDS: FLUCONAZOLE 200 MG/100ML BAG 100 ML IV SCH (18:28)
[2019-10-09] MEDS: ACETAMINOPHEN 650MG/20.3ML UDC GT PRN (18:34)
[2019-10-09 20:00] VITALS: BP 127/84
[2019-10-10] VITALS: BP 137/84
[2019-10-10] MEDS: IPRATROPIUM BROMIDE (0.02%) 0.5MG/2.5ML NEB HHN SCH ×5 (01:19→21:33)
[2019-10-10 04:00] VITALS: BP 152/98
[2019-10-10] MEDS: METOCLOPRAMIDE HCL 10MG/2ML VIAL IV SCH ×3 (05:32→18:59)
[2019-10-10] MEDS: DILTIAZEM HCL 30MG TABLET NG SCH ×3 (05:32→21:05)
[2019-10-10] MEDS: LACTULOSE 20G/30ML UDC NG SCH ×3 (05:37→21:04)
[2019-10-10] MEDS: BLOOD SUGAR DIAGNOSTIC STRIP TEST SCH ×3 (05:50→18:37)
[2019-10-10] MEDS: INSULIN LISPRO 100 UNITS/ML SUBCUT SCH ×3 (05:54→18:00)
[2019-10-10 07:41] LABS: BASOPHILS % 1.5 % (0.0-2.0); EOSINOPHILS % 3.3 % (0.0-5.0); HEMATOCRIT. 34.7 % (42.0-52.0); HEMOGLOBIN. 11.1 g/dL (14.0-18.0); LYMPHOCYTES % 15.4 % (20.0-50.0); MEAN CORPUSCULAR HEMOGLOBIN 33.7 pg (28.0-32.0); MEAN CORPUSCULAR VOLUME 105.3 fL (80.0-94.0); MEAN PLATELET VOLUME 10.1 fl (7.4-10.4); MONOCYTES % 7.9 % (2.0-8.0); NEUTROPHILS % 71.9 % (40.0-76.0); PLATELET 235 x1000/uL (130-400); RED CELL DISTRIBUTION WIDTH 18.4 % (11.6-14.6)
[2019-10-10 08:00] VITALS: BP_SYST 133; BP_DIAS 81; BP_DIAS 89
[2019-10-10] MEDS: RIFAXIMIN 550 MG TABLET NG SCH ×2 (09:14→21:04)
[2019-10-10] MEDS: ZINC SULFATE 220 MG ( 50 ) CAPSULE PO SCH (09:14)
[2019-10-10] MEDS: ASCORBIC ACID 500 MG TABLET PO SCH (09:14)
[2019-10-10] MEDS: METOPROLOL TARTRATE 25MG TABLET NG SCH ×2 (09:21→21:05)
[2019-10-10] MEDS ORDERED: HEPARIN SODIUM 1,000 UNIT/1ML VIAL IV NR (11:00)
[2019-10-10 12:00] VITALS: BP 147/83
[2019-10-10] MEDS: DEXTROSE 5% WATER 1,000 ML IV SCH (12:26)
[2019-10-10] MEDS: FLUCONAZOLE 200 MG/100ML BAG 100 ML IV SCH (15:05)
[2019-10-10 16:00] VITALS: BP 123/79
[2019-10-10 20:16] VITALS: BP 137/85
[2019-10-10] MEDS: ACETAMINOPHEN 650MG/20.3ML UDC GT PRN (21:04)
[2019-10-10 21:09] LABS: BG BASE EXCESS 0.2 mmol/L (-2.0-2.0); BG CARBOXYHEMOGLOBIN 0.5 % (0.5-1.5); BG DEOXYHEMOGLOBIN 3.1 % (0.0-5.0); BG FRACTION INSPIRED OXYGEN 28; BG METHEMOGLOBIN 0.4 % (0.0-1.5); BG OXYGEN SATURATION 96.9 % (92.0-98.5); BG PCO2 30.7 mmHg (35.0-45.0); BG PH 7.492 (7.350-7.450); BG PO2 88.6 mmHg (75.0-100.0); BG SAMPLE SITE RIGHT RADIAL; BG TOTAL HEMOGLOBIN 10.7 g/dL (12.0-18.0); BG VENT MODE NASAL CANNULA
[2019-10-11 00:23] VITALS: BP 107/67
[2019-10-11] MEDS: BLOOD SUGAR DIAGNOSTIC STRIP TEST SCH ×4 (00:54→18:28)
[2019-10-11] MEDS: METOCLOPRAMIDE HCL 10MG/2ML VIAL IV SCH ×4 (00:54→18:33)
[2019-10-11] MEDS: IPRATROPIUM BROMIDE (0.02%) 0.5MG/2.5ML NEB HHN SCH ×5 (02:26→20:59)
[2019-10-11 04:00] VITALS: BP 96/60
[2019-10-11] MEDS: INSULIN LISPRO 100 UNITS/ML SUBCUT SCH ×4 (06:00→18:00)
[2019-10-11] MEDS: DILTIAZEM HCL 30MG TABLET NG SCH ×4 (06:00→21:14)
[2019-10-11] MEDS: LACTULOSE 20G/30ML UDC NG SCH ×3 (06:03→21:12)
[2019-10-11 06:16] LABS: EOSINOPHILS % 4.4 % (0.0-5.0); HEMATOCRIT. 29.8 % (42.0-52.0); HEMOGLOBIN. 9.5 g/dL (14.0-18.0); MEAN CORPUSCULAR HEMOGLOBIN 33.3 pg (28.0-32.0); MEAN CORPUSCULAR VOLUME 104.8 fL (80.0-94.0); MEAN PLATELET VOLUME 10.2 fl (7.4-10.4); MONOCYTES % 9.8 % (2.0-8.0); NEUTROPHILS % 68.8 % (40.0-76.0); PLATELET 149 x1000/uL (130-400); RED BLOOD CELL COUNT 2.84 mill/uL (4.7-6.1); RED CELL DISTRIBUTION WIDTH 17.9 % (11.6-14.6)
[2019-10-11] MEDS: DEXTROSE 5% WATER 1,000 ML IV SCH (06:30)
[2019-10-11 08:00] VITALS: BP 98/64
[2019-10-11] MEDS: METOPROLOL TARTRATE 25MG TABLET NG SCH ×2 (09:00→21:14)
[2019-10-11] MEDS: RIFAXIMIN 550 MG TABLET NG SCH ×2 (09:32→21:15)
[2019-10-11] MEDS: ASCORBIC ACID 500 MG TABLET PO SCH (09:33)
[2019-10-11] MEDS: ZINC SULFATE 220 MG ( 50 ) CAPSULE PO SCH (09:34)
[2019-10-11] MEDS ORDERED: POTASSIUM CHLORIDE 20MEQ/PACKET PO SCH (10:30)
[2019-10-11 12:00] VITALS: BP 97/65
[2019-10-11] MEDS: FLUCONAZOLE 200 MG/100ML BAG 100 ML IV SCH (15:10)
[2019-10-11 16:20] VITALS: BP 121/84
[2019-10-11 20:05] VITALS: BP 106/70
[2019-10-12] VITALS (8 sets, daily range): BP systolic 92–154; BP diastolic 61–90
[2019-10-12] MEDS: BLOOD SUGAR DIAGNOSTIC STRIP TEST SCH ×4 (00:47→18:15)
[2019-10-12] MEDS: METOCLOPRAMIDE HCL 10MG/2ML VIAL IV SCH ×5 (00:47→23:02)
[2019-10-12] MEDS: DEXTROSE 5% WATER 1,000 ML IV SCH ×2 (00:47→11:48)
[2019-10-12] MEDS: IPRATROPIUM BROMIDE (0.02%) 0.5MG/2.5ML NEB HHN SCH ×4 (03:14→21:00)
[2019-10-12] MEDS: LACTULOSE 20G/30ML UDC NG SCH ×3 (05:48→21:26)
[2019-10-12] MEDS: DILTIAZEM HCL 30MG TABLET NG SCH ×3 (05:48→21:21)
[2019-10-12] MEDS: INSULIN LISPRO 100 UNITS/ML SUBCUT SCH ×4 (06:00→18:00)
[2019-10-12 07:29] LABS: BASOPHILS % 1.4 % (0.0-2.0); EOSINOPHILS % 8.6 % (0.0-5.0); HEMATOCRIT. 33.6 % (42.0-52.0); HEMOGLOBIN. 10.5 g/dL (14.0-18.0); LYMPHOCYTES % 15.1 % (20.0-50.0); MEAN CORPUSCULAR HEMOGLOBIN 32.7 pg (28.0-32.0); MEAN CORPUSCULAR VOLUME 104.6 fL (80.0-94.0); MEAN PLATELET VOLUME 10.4 fl (7.4-10.4); NEUTROPHILS % 66.9 % (40.0-76.0); PLATELET 170 x1000/uL (130-400); RED BLOOD CELL COUNT 3.21 mill/uL (4.7-6.1); RED CELL DISTRIBUTION WIDTH 18.1 % (11.6-14.6)
[2019-10-12] MEDS: METOPROLOL TARTRATE 25MG TABLET NG SCH ×2 (09:00→21:20)
[2019-10-12] MEDS: RIFAXIMIN 550 MG TABLET NG SCH ×2 (09:02→21:20)
[2019-10-12] MEDS: ASCORBIC ACID 500 MG TABLET PO SCH (09:02)
[2019-10-12] MEDS: ZINC SULFATE 220 MG ( 50 ) CAPSULE PO SCH (09:02)
[2019-10-12] MEDS: FLUCONAZOLE 200 MG/100ML BAG 100 ML IV SCH (18:20)
[2019-10-13] VITALS (26 sets, daily range): BP systolic 104–139; BP diastolic 67–102
[2019-10-13] MEDS: BLOOD SUGAR DIAGNOSTIC STRIP TEST SCH ×3 (00:44→18:40)
[2019-10-13] MEDS: IPRATROPIUM BROMIDE (0.02%) 0.5MG/2.5ML NEB HHN SCH ×3 (01:33→20:26)
[2019-10-13 05:35] LABS: INR 1.1; PARTIAL THROMBOPLASTIN TIME 32.2 sec (23.4-31.0); PROTHROMBIN TIME 12.1 sec (9.6-11.0)
[2019-10-13 05:45] LABS: PHOSPHORUS 3.7 mg/dL (2.5-4.9)
[2019-10-13] MEDS: LACTULOSE 20G/30ML UDC NG SCH ×2 (06:00→20:56)
[2019-10-13] MEDS: DILTIAZEM HCL 30MG TABLET NG SCH ×3 (06:00→20:55)
[2019-10-13] MEDS: INSULIN LISPRO 100 UNITS/ML SUBCUT SCH ×3 (06:00→18:00)
[2019-10-13 06:07] LABS: EOSINOPHILS % 4.3 % (0.0-5.0); HEMOGLOBIN. 9.4 g/dL (14.0-18.0); LYMPHOCYTES % 14.4 % (20.0-50.0); MEAN CORPUSCULAR HEMOGLOBIN 33.7 pg (28.0-32.0); MEAN CORPUSCULAR VOLUME 103.7 fL (80.0-94.0); MEAN PLATELET VOLUME 10.9 fl (7.4-10.4); MONOCYTES % 8.2 % (2.0-8.0); NEUTROPHILS % 72.1 % (40.0-76.0); PLATELET 135 x1000/uL (130-400); RED CELL DISTRIBUTION WIDTH 17.3 % (11.6-14.6)
[2019-10-13] MEDS: METOCLOPRAMIDE HCL 10MG/2ML VIAL IV SCH ×2 (06:37→18:44)
[2019-10-13] MEDS: ZINC SULFATE 220 MG ( 50 ) CAPSULE PO SCH (09:00)
[2019-10-13] MEDS: METOPROLOL TARTRATE 25MG TABLET NG SCH ×2 (09:00→20:55)
[2019-10-13] MEDS: ASCORBIC ACID 500 MG TABLET PO SCH (09:00)
[2019-10-13] MEDS: RIFAXIMIN 550 MG TABLET NG SCH ×2 (09:00→20:55)
[2019-10-13] MEDS ORDERED: BUPIVACAINE HCL 0.5% (5MG/ML) 50ML ONE (10:20)
[2019-10-13] MEDS ORDERED: SKIN ADHESIVE 0.7 GM EA TOP ONE (10:20)
[2019-10-13] MEDS ORDERED: ROCURONIUM BROMIDE 10MG/ML VIAL 5ML IV ONE (10:46)
[2019-10-13] MEDS ORDERED: CEFAZOLIN SODIUM 1000MG/VIAL ONE (11:14)
[2019-10-13] MEDS ORDERED: EPHEDRINE SULFATE 50MG/ML VIAL ONE (11:14)
[2019-10-13] MEDS ORDERED: SODIUM CHLORIDE 0.9% 10ML VIAL ONE (11:14)
[2019-10-13] MEDS ORDERED: ONDANSETRON HCL 4MG/2ML INJ ONE (11:24)
[2019-10-13] MEDS ORDERED: DEXAMETHASONE 4MG/ML 1ML VIAL ONE (11:25)
[2019-10-13] MEDS ORDERED: GLYCOPYRROLATE 0.2 MG/ML 2ML VIAL ONE ×2 (11:30→14:20)
[2019-10-13] MEDS ORDERED: NEOSTIGMINE METHYLSULFATE 1MG/ML 10 ML VIAL ONE (11:31)
[2019-10-13] MEDS ORDERED: ONDANSETRON HCL 4MG/2ML INJ IV PRN (12:00)
[2019-10-13] MEDS ORDERED: MEPERIDINE HCL/PF 25MG/ML CPJ IV PRN (12:00)
[2019-10-13] MEDS ORDERED: LABETALOL 5MG/ML SYR 20 MG/4 ML SYRINGE IV PRN (12:00)
[2019-10-13] MEDS ORDERED: HYDROMORPHONE HCL/PF 2MG/ML CPJ IV PRN (12:00)
[2019-10-13] MEDS ORDERED: IPRATROPIUM/ALBUTEROL 0.5-3(2.5)MG/3ML NEB HHN NR (12:09)
[2019-10-13 13:52] LABS: BG BASE EXCESS -7.7 mmol/L (-2.0-2.0); BG CARBOXYHEMOGLOBIN 0.3 % (0.5-1.5); BG DEOXYHEMOGLOBIN 0.7 % (0.0-5.0); BG HCO3 ACT 17.1 mmol/L (22.0-26.0); BG METHEMOGLOBIN 0.3 % (0.0-1.5); BG OXYGEN SATURATION 99.3 % (92.0-98.5); BG OXYHEMOGLOBIN 98.7 % (94.0-97.0); BG PCO2 32.1 mmHg (35.0-45.0); BG PH 7.344 (7.350-7.450); BG PO2 210.7 mmHg (75.0-100.0); BG SAMPLE SITE RIGHT RADIAL; BG TIDAL VOLUME(mL) 500 mL; BG TOTAL HEMOGLOBIN 10.5 g/dL (12.0-18.0); BG VENT MODE VENT - A/C; BG VENT RATE 12 set
[2019-10-13] MEDS ORDERED: LORAZEPAM 2MG/ML CPJ IV PRN (14:30)
[2019-10-13] MEDS: MIDODRINE HCL 5MG TABLET PO SCH ×2 (18:45→20:55)
[2019-10-13] MEDS: DEXTROSE 5% WATER 1,000 ML IV SCH (18:46)
[2019-10-13] MEDS: FLUCONAZOLE 200 MG/100ML BAG 100 ML IV SCH (18:46)
[2019-10-13] MEDS: MORPHINE SULFATE 2 MG/ML CPJ (NOT FOR IM USE) IV PRN (20:58)
[2019-10-14] VITALS (55 sets, daily range): BP systolic 77–152; BP diastolic 54–107
[2019-10-14] MEDS: METOCLOPRAMIDE HCL 10MG/2ML VIAL IV SCH ×4 (00:11→17:11)
[2019-10-14] MEDS: BLOOD SUGAR DIAGNOSTIC STRIP TEST SCH ×4 (00:11→17:16)
[2019-10-14] MEDS: IPRATROPIUM BROMIDE (0.02%) 0.5MG/2.5ML NEB HHN SCH ×4 (03:00→18:13)
[2019-10-14] MEDS: INSULIN LISPRO 100 UNITS/ML SUBCUT SCH ×4 (06:00→17:54)
[2019-10-14 06:12] LABS: BASOPHILS % 0.1 % (0.0-2.0); HEMATOCRIT. 28.6 % (42.0-52.0); HEMOGLOBIN. 9.4 g/dL (14.0-18.0); LYMPHOCYTES % 7.4 % (20.0-50.0); MEAN CORPUSCULAR HEMOGLOBIN 33.5 pg (28.0-32.0); MEAN CORPUSCULAR VOLUME 102.1 fL (80.0-94.0); MEAN PLATELET VOLUME 11.1 fl (7.4-10.4); MONOCYTES % 3.6 % (2.0-8.0); NEUTROPHILS % 88.9 % (40.0-76.0); PLATELET 131 x1000/uL (130-400); RED CELL DISTRIBUTION WIDTH 17.3 % (11.6-14.6)
[2019-10-14] MEDS: LACTULOSE 20G/30ML UDC NG SCH ×3 (07:00→22:14)
[2019-10-14] MEDS: DILTIAZEM HCL 30MG TABLET NG SCH ×3 (07:00→22:13)
[2019-10-14] MEDS: ASCORBIC ACID 500 MG TABLET PO SCH (08:32)
[2019-10-14] MEDS: RIFAXIMIN 550 MG TABLET NG SCH ×2 (08:32→21:50)
[2019-10-14] MEDS: ZINC SULFATE 220 MG ( 50 ) CAPSULE PO SCH (08:37)
[2019-10-14] MEDS: METOPROLOL TARTRATE 25MG TABLET NG SCH ×2 (09:00→21:00)
[2019-10-14] MEDS: MIDODRINE HCL 5MG TABLET PO SCH ×2 (09:00→21:51)
[2019-10-14 09:18] LABS: BG BASE EXCESS -7.2 mmol/L (-2.0-2.0); BG CARBOXYHEMOGLOBIN 0.4 % (0.5-1.5); BG DEOXYHEMOGLOBIN 1.5 % (0.0-5.0); BG FRACTION INSPIRED OXYGEN 40; BG HCO3 ACT 17.1 mmol/L (22.0-26.0); BG METHEMOGLOBIN 0.3 % (0.0-1.5); BG OXYGEN SATURATION 98.5 % (92.0-98.5); BG OXYHEMOGLOBIN 97.8 % (94.0-97.0); BG PCO2 30.6 mmHg (35.0-45.0); BG PH 7.365 (7.350-7.450); BG PO2 126.3 mmHg (75.0-100.0); BG SAMPLE SITE RIGHT RADIAL; BG TIDAL VOLUME(mL) 500 mL; BG TOTAL HEMOGLOBIN 11.1 g/dL (12.0-18.0); BG VENT MODE VENT - A/C; BG VENT RATE 12 set
[2019-10-14 10:11] LABS: BG BASE EXCESS -13.9 mmol/L (-2.0-2.0); BG CARBOXYHEMOGLOBIN 0.3 % (0.5-1.5); BG DEOXYHEMOGLOBIN 2.7 % (0.0-5.0); BG FRACTION INSPIRED OXYGEN 40; BG HCO3 ACT 10.6 mmol/L (22.0-26.0); BG METHEMOGLOBIN 1.7 % (0.0-1.5); BG OXYGEN SATURATION 97.2 % (92.0-98.5); BG OXYHEMOGLOBIN 95.3 % (94.0-97.0); BG PCO2 19.6 mmHg (35.0-45.0); BG PH 7.352 (7.350-7.450); BG PRESSURE SUPPORT 8; BG SAMPLE SITE RIGHT RADIAL; BG TOTAL HEMOGLOBIN 4.5 g/dL (12.0-18.0); BG VENT MODE VENT - CPAP
[2019-10-14] MEDS: DEXTROSE 5% WATER 1,000 ML IV SCH (14:01)
[2019-10-14] MEDS ORDERED: HEPARIN SODIUM 1,000 UNIT/1ML VIAL IV ONE (18:30)
[2019-10-15] VITALS (76 sets, daily range): BP systolic 82–157; BP diastolic 49–114
[2019-10-15] MEDS: METOCLOPRAMIDE HCL 10MG/2ML VIAL IV SCH ×5 (01:10→23:05)
[2019-10-15] MEDS: IPRATROPIUM BROMIDE (0.02%) 0.5MG/2.5ML NEB HHN SCH ×4 (03:00→20:29)
[2019-10-15] MEDS: INSULIN LISPRO 100 UNITS/ML SUBCUT SCH ×5 (06:00→23:11)
[2019-10-15] MEDS: BLOOD SUGAR DIAGNOSTIC STRIP TEST SCH ×5 (06:00→23:11)
[2019-10-15] MEDS: DILTIAZEM HCL 30MG TABLET NG SCH ×3 (06:24→22:49)
[2019-10-15] MEDS: LACTULOSE 20G/30ML UDC NG SCH ×3 (06:25→22:46)
[2019-10-15] MEDS: MORPHINE SULFATE 2 MG/ML CPJ (NOT FOR IM USE) IV PRN ×2 (06:26→10:43)
[2019-10-15 08:17] LABS: BG DEOXYHEMOGLOBIN 7.3 % (0.0-5.0); BG HCO3 ACT 12.2 mmol/L (22.0-26.0); BG METHEMOGLOBIN 0.3 % (0.0-1.5); BG OXYGEN SATURATION 92.6 % (92.0-98.5); BG OXYHEMOGLOBIN 91.4 % (94.0-97.0); BG PCO2 19.7 mmHg (35.0-45.0); BG PO2 65.8 mmHg (75.0-100.0); BG SAMPLE SITE RIGHT BRACHIAL; BG TOTAL HEMOGLOBIN 13.7 g/dL (12.0-18.0); BG VENT MODE ROOM AIR
[2019-10-15] MEDS: RIFAXIMIN 550 MG TABLET NG SCH ×2 (08:49→22:55)
[2019-10-15] MEDS: ZINC SULFATE 220 MG ( 50 ) CAPSULE PO SCH (08:49)
[2019-10-15] MEDS: ASCORBIC ACID 500 MG TABLET PO SCH (08:49)
[2019-10-15] MEDS: METOPROLOL TARTRATE 25MG TABLET NG SCH ×2 (08:50→22:49)
[2019-10-15] MEDS: MIDODRINE HCL 5MG TABLET PO SCH ×2 (08:51→22:54)
[2019-10-15] MEDS: DEXTROSE 5% WATER 1,000 ML IV SCH (09:34)
[2019-10-15 14:58] LABS: BG BASE EXCESS -11.4 mmol/L (-2.0-2.0); BG CARBOXYHEMOGLOBIN 0.8 % (0.5-1.5); BG DEOXYHEMOGLOBIN 5.6 % (0.0-5.0); BG HCO3 ACT 10.5 mmol/L (22.0-26.0); BG METHEMOGLOBIN 0.4 % (0.0-1.5); BG OXYGEN SATURATION 94.3 % (92.0-98.5); BG OXYHEMOGLOBIN 93.2 % (94.0-97.0); BG PCO2 17.3 mmHg (35.0-45.0); BG PO2 74.1 mmHg (75.0-100.0); BG SAMPLE SITE RIGHT BRACHIAL; BG TOTAL HEMOGLOBIN 14.4 g/dL (12.0-18.0); BG VENT MODE NASAL CANNULA
[2019-10-15] MEDS ORDERED: SODIUM BICARBONATE 100 MEQ in DEXTROSE 5% WATER 1,000 ML IV SCH (17:30)
[2019-10-15 18:19] LABS: BG BASE EXCESS -18.2 mmol/L (-2.0-2.0); BG CARBOXYHEMOGLOBIN 0.8 % (0.5-1.5); BG DEOXYHEMOGLOBIN 4.7 % (0.0-5.0); BG FRACTION INSPIRED OXYGEN 44; BG HCO3 ACT 7.2 mmol/L (22.0-26.0); BG METHEMOGLOBIN 0.2 % (0.0-1.5); BG OXYGEN SATURATION 95.3 % (92.0-98.5); BG OXYHEMOGLOBIN 94.3 % (94.0-97.0); BG PCO2 18.3 mmHg (35.0-45.0); BG PH 7.214 (7.350-7.450); BG PO2 89.8 mmHg (75.0-100.0); BG SAMPLE SITE RIGHT BRACHIAL; BG TOTAL HEMOGLOBIN 14.5 g/dL (12.0-18.0); BG VENT MODE NASAL CANNULA
[2019-10-15] MEDS ORDERED: SODIUM BICARBONATE 8.4% 1 MEQ/ML 50ML SYR IV NR ×2 (18:32→22:45)
[2019-10-15] MEDS: SODIUM BICARBONATE 150 MEQ in DEXTROSE 5% WATER 1,000 ML IV SCH (19:35)
[2019-10-15] MEDS ORDERED: VANCOMYCIN 1 G PREMIX 200 ML IV SCH (20:00)
[2019-10-15 22:18] LABS: BG BASE EXCESS -15.6 mmol/L (-2.0-2.0); BG CARBOXYHEMOGLOBIN 0.7 % (0.5-1.5); BG FRACTION INSPIRED OXYGEN 50; BG HCO3 ACT 9.1 mmol/L (22.0-26.0); BG METHEMOGLOBIN 0.3 % (0.0-1.5); BG OXYGEN SATURATION 94.9 % (92.0-98.5); BG PCO2 20.2 mmHg (35.0-45.0); BG PH 7.271 (7.350-7.450); BG PO2 83.6 mmHg (75.0-100.0); BG SAMPLE SITE RIGHT RADIAL; BG TOTAL HEMOGLOBIN 13.6 g/dL (12.0-18.0); BG VENT MODE VENT - A/C; BG VENT RATE 16 set
[2019-10-15] MEDS: PIPERACILLIN/TAZOBACTAM 2.25 G in DEXTROSE 5% WATER 50 ML IV SCH (23:05)
[2019-10-16] VITALS (90 sets, daily range): BP systolic 42–189; BP diastolic 22–135
[2019-10-16] MEDS ORDERED: SODIUM CHLORIDE 0.9% 500 ML IV NR (00:45)
[2019-10-16] MEDS: IPRATROPIUM BROMIDE (0.02%) 0.5MG/2.5ML NEB HHN SCH ×4 (02:05→21:06)
[2019-10-16] MEDS: NOREPINEPHRINE 16 MG in DEXT 5% WATER 234 ML IV PRN ×2 (04:35→17:53)
[2019-10-16] MEDS: PIPERACILLIN/TAZOBACTAM 2.25 G in DEXTROSE 5% WATER 50 ML IV SCH ×3 (05:28→20:45)
[2019-10-16] MEDS: METOCLOPRAMIDE HCL 10MG/2ML VIAL IV SCH ×3 (05:29→17:53)
[2019-10-16] MEDS: BLOOD SUGAR DIAGNOSTIC STRIP TEST SCH ×3 (06:00→17:47)
[2019-10-16] MEDS: DILTIAZEM HCL 30MG TABLET NG SCH (06:00)
[2019-10-16] MEDS: INSULIN LISPRO 100 UNITS/ML SUBCUT SCH ×3 (06:00→17:47)
[2019-10-16] MEDS: LACTULOSE 20G/30ML UDC NG SCH ×3 (06:00→22:28)
[2019-10-16 06:11] LABS: HEMATOCRIT. 37.4 % (42.0-52.0); HEMOGLOBIN. 11.7 g/dL (14.0-18.0); MEAN CORPUSCULAR HEMOGLOBIN 32.6 pg (28.0-32.0); MEAN CORPUSCULAR VOLUME 104.6 fL (80.0-94.0); MEAN PLATELET VOLUME 10.7 fl (7.4-10.4); PLATELET 217 x1000/uL (130-400); RED BLOOD CELL COUNT 3.58 mill/uL (4.7-6.1); RED CELL DISTRIBUTION WIDTH 17.2 % (11.6-14.6)
[2019-10-16 07:45] LABS: BG BASE EXCESS -16.1 mmol/L (-2.0-2.0); BG CARBOXYHEMOGLOBIN 0.8 % (0.5-1.5); BG DEOXYHEMOGLOBIN 8.6 % (0.0-5.0); BG METHEMOGLOBIN 0.1 % (0.0-1.5); BG OXYGEN SATURATION 91.3 % (92.0-98.5); BG OXYHEMOGLOBIN 90.5 % (94.0-97.0); BG PCO2 25.3 mmHg (35.0-45.0); BG PH 7.216 (7.350-7.450); BG PO2 74.1 mmHg (75.0-100.0); BG SAMPLE SITE RIGHT RADIAL; BG TIDAL VOLUME(mL) 500 mL; BG VENT MODE VENT - A/C; BG VENT RATE 16 set
[2019-10-16] MEDS ORDERED: SODIUM BICARBONATE 8.4% 1 MEQ/ML 50ML SYR IV ONE (08:00)
[2019-10-16] MEDS: METOPROLOL TARTRATE 25MG TABLET NG SCH (08:08)
[2019-10-16] MEDS: ZINC SULFATE 220 MG ( 50 ) CAPSULE PO SCH (08:08)
[2019-10-16] MEDS: MIDODRINE HCL 5MG TABLET PO SCH ×2 (08:09→20:17)
[2019-10-16] MEDS: ASCORBIC ACID 500 MG TABLET PO SCH (08:09)
[2019-10-16] MEDS: RIFAXIMIN 550 MG TABLET NG SCH ×2 (08:09→20:16)
[2019-10-16] MEDS: SODIUM BICARBONATE 150 MEQ in DEXTROSE 5% WATER 1,000 ML IV SCH ×3 (08:15→20:18)
[2019-10-16] MEDS: DEXTROSE 50% WATER 50ML SYRINGE IV PRN ×2 (11:56→17:47)
[2019-10-16 12:14] LABS: BG BASE EXCESS -7.6 mmol/L (-2.0-2.0); BG CARBOXYHEMOGLOBIN 0.3 % (0.5-1.5); BG DEOXYHEMOGLOBIN 3.3 % (0.0-5.0); BG FRACTION INSPIRED OXYGEN 60; BG HCO3 ACT 17.2 mmol/L (22.0-26.0); BG METHEMOGLOBIN 0.2 % (0.0-1.5); BG OXYGEN SATURATION 96.7 % (92.0-98.5); BG OXYHEMOGLOBIN 96.2 % (94.0-97.0); BG PCO2 32.7 mmHg (35.0-45.0); BG PH 7.339 (7.350-7.450); BG SAMPLE SITE RIGHT BRACHIAL; BG TIDAL VOLUME(mL) 500 mL; BG TOTAL HEMOGLOBIN 11.2 g/dL (12.0-18.0); BG VENT MODE VENT - A/C; BG VENT RATE 16 set
[2019-10-16 13:44] LABS: NUCLEATED RED BLOOD CELLS 1 /100 WBC; PLATELET ESTIMATE NORMAL
[2019-10-16] MEDS: METRONIDAZOLE 500 MG PREMIX 100 ML IV SCH ×2 (13:51→22:25)
[2019-10-16] MEDS: VASOPRESSIN 10 UNIT in SODIUM CHLORIDE 0.9% 99.5 ML IV PRN (17:53)
[2019-10-16] MEDS ORDERED: HYDROCODONE/ACETAMINOPHEN 10/325MG TABLET PO PRN (19:30)
[2019-10-16] MEDS ORDERED: DEXT 10% WATER 1,000 ML IV SCH (20:00)
[2019-10-17] VITALS (24 sets, daily range): BP systolic 34–125; BP diastolic 15–40
[2019-10-17] MEDS: BLOOD SUGAR DIAGNOSTIC STRIP TEST SCH ×2 (00:07→05:47)
[2019-10-17] MEDS: METOCLOPRAMIDE HCL 10MG/2ML VIAL IV SCH ×2 (00:55→05:59)
[2019-10-17] MEDS: VASOPRESSIN 10 UNIT in SODIUM CHLORIDE 0.9% 99.5 ML IV PRN ×2 (00:59→05:40)
[2019-10-17] MEDS: IPRATROPIUM BROMIDE (0.02%) 0.5MG/2.5ML NEB HHN SCH (01:01)
[2019-10-17] MEDS ORDERED: MICAFUNGIN 100 MG in SODIUM CHLORIDE 0.9% 100 ML IV SCH (02:00)
[2019-10-17] MEDS: NOREPINEPHRINE 16 MG in DEXT 5% WATER 234 ML IV PRN (02:10)
[2019-10-17] MEDS ORDERED: SODIUM BICARBONATE 8.4% MEQ/ML 50ML VIAL IV ONE (02:30)
[2019-10-17] MEDS ORDERED: EPINEPHRINE 0.1MG/ML (1:10,000) 10ML SYR ONE (02:30)
[2019-10-17 03:12] LABS: BG BASE EXCESS -20.5 mmol/L (-2.0-2.0); BG CARBOXYHEMOGLOBIN 0.1 % (0.5-1.5); BG DEOXYHEMOGLOBIN 1.5 % (0.0-5.0); BG FRACTION INSPIRED OXYGEN 90; BG HCO3 ACT 8.2 mmol/L (22.0-26.0); BG METHEMOGLOBIN 0.7 % (0.0-1.5); BG OXYGEN SATURATION 98.5 % (92.0-98.5); BG OXYHEMOGLOBIN 97.7 % (94.0-97.0); BG PCO2 29.7 mmHg (35.0-45.0); BG PH 7.058 (7.350-7.450); BG PO2 178.4 mmHg (75.0-100.0); BG SAMPLE SITE LEFT FEMORAL; BG TIDAL VOLUME(mL) 500 mL; BG TOTAL HEMOGLOBIN 7.3 g/dL (12.0-18.0); BG VENT MODE VENT - A/C; BG VENT RATE 16 set
[2019-10-17] MEDS: PHENYLEPHRINE 40 MG in DEXTROSE 5% WATER 250 ML IV PRN ×2 (03:16→07:28)
[2019-10-17] MEDS ORDERED: SODIUM BICARBONATE 8.4% 1 MEQ/ML 50ML SYR IV NR (03:45)
[2019-10-17] MEDS: PIPERACILLIN/TAZOBACTAM 2.25 G in DEXTROSE 5% WATER 50 ML IV SCH (05:40)
[2019-10-17] MEDS: INSULIN LISPRO 100 UNITS/ML SUBCUT SCH ×2 (05:47)
[2019-10-17] MEDS: LACTULOSE 20G/30ML UDC NG SCH (05:59)
[2019-10-17] MEDS: METRONIDAZOLE 500 MG PREMIX 100 ML IV SCH (06:48)
== END 2019-10-17 10:08 | disposition expired | DRG 710 ==
LOC: ER 18:55 → 5EST 09-17 00:14 → EDBEDREQSVC 09-17 00:18 → EDBEDREQ 09-17 00:18 → EDBEDREQDT 09-17 00:18 → EDBEDREQTM 09-17 00:18 → EDBEDREQSVC 09-17 22:39 → EDBEDREQTM 09-17 22:39 → EDBEDREQ 09-17 23:12 → ENRESERV 09-17 23:14 → CANRESERV 09-17 23:14 → EDBEDREQDT 09-18 00:12 → EDBEDREQTM 09-18 00:12 → EDBEDREQSVC 09-18 00:12 → EDBEDREQ 09-18 08:34 → ENRESERV 09-18 17:15 → 6WST 10-02 21:45 → 5EST 10-13 18:30
PROVIDERS: ADMIT Internal Medicine Nephrology; ATTEND Internal Medicine Nephrology
PROC: 0BH17EZ Insertion of Endotracheal Airway into Trachea, Via Natural or Artificial Opening (ICD-10-PCS; 2019-09-14)
PROC: 5A1955Z Respiratory Ventilation, Greater than 96 Consecutive Hours (ICD-10-PCS; principal; 2019-09-17)
PROC: 05HY33Z Insertion of Infusion Device into Upper Vein, Percutaneous Approach (ICD-10-PCS; 2019-09-17)
PROC: B54MZZA Ultrasonography of Right Upper Extremity Veins, Guidance (ICD-10-PCS; 2019-09-17)
PROC: 0BH17EZ Insertion of Endotracheal Airway into Trachea, Via Natural or Artificial Opening (ICD-10-PCS; 2019-09-17)
PROC: 4A00X4Z Measurement of Central Nervous Electrical Activity, External Approach (ICD-10-PCS; 2019-09-27)
PROC: 02HV33Z Insertion of Infusion Device into Superior Vena Cava, Percutaneous Approach (ICD-10-PCS; 2019-09-27)
PROC: B548ZZA Ultrasonography of Superior Vena Cava, Guidance (ICD-10-PCS; 2019-09-27)
PROC: 5A1D70Z Performance of Urinary Filtration, Intermittent, Less than 6 Hours Per Day (ICD-10-PCS; 2019-09-27)
PROC: 5A1D70Z Performance of Urinary Filtration, Intermittent, Less than 6 Hours Per Day (ICD-10-PCS; 2019-09-28)
PROC: 5A1D70Z Performance of Urinary Filtration, Intermittent, Less than 6 Hours Per Day (ICD-10-PCS; 2019-09-30)
PROC: 5A1D70Z Performance of Urinary Filtration, Intermittent, Less than 6 Hours Per Day (ICD-10-PCS; 2019-10-02)
PROC: 5A1D70Z Performance of Urinary Filtration, Intermittent, Less than 6 Hours Per Day (ICD-10-PCS; 2019-10-04)
PROC: 5A1D70Z Performance of Urinary Filtration, Intermittent, Less than 6 Hours Per Day (ICD-10-PCS; 2019-10-06)
PROC: 0W9G3ZZ Drainage of Peritoneal Cavity, Percutaneous Approach (ICD-10-PCS; 2019-10-07)
PROC: 5A1D70Z Performance of Urinary Filtration, Intermittent, Less than 6 Hours Per Day (ICD-10-PCS; 2019-10-10)
PROC: 5A1D70Z Performance of Urinary Filtration, Intermittent, Less than 6 Hours Per Day (ICD-10-PCS; 2019-10-10)
PROC: 5A1D70Z Performance of Urinary Filtration, Intermittent, Less than 6 Hours Per Day (ICD-10-PCS; 2019-10-12)
PROC: 0DH60UZ Insertion of Feeding Device into Stomach, Open Approach (ICD-10-PCS; 2019-10-13)
PROC: 5A1935Z Respiratory Ventilation, Less than 24 Consecutive Hours (ICD-10-PCS; 2019-10-13)
PROC: 5A1D70Z Performance of Urinary Filtration, Intermittent, Less than 6 Hours Per Day (ICD-10-PCS; 2019-10-14)
PROC: 5A1945Z Respiratory Ventilation, 24-96 Consecutive Hours (ICD-10-PCS; 2019-10-15)
PROC: 5A1D70Z Performance of Urinary Filtration, Intermittent, Less than 6 Hours Per Day (ICD-10-PCS; 2019-10-16)
PROC: 5A12012 Performance of Cardiac Output, Single, Manual (ICD-10-PCS; 2019-10-17)
DX: A41.9 Sepsis, unspecified organism (principal); N17.0 Acute kidney failure with tubular necrosis; R65.21 Severe sepsis with septic shock; J96.01 Acute respiratory failure with hypoxia; E43 Unspecified severe protein-calorie malnutrition; G92 Toxic encephalopathy; D61.818 Other pancytopenia; J18.9 Pneumonia, unspecified organism; I13.2 Hypertensive heart and chronic kidney disease with heart failure and with stage 5 chronic kidney disease, or end stage renal disease; I46.9 Cardiac arrest, cause unspecified; E11.22 Type 2 diabetes mellitus with diabetic chronic kidney disease; E87.0 Hyperosmolality and hypernatremia; I69.351 Hemiplegia and hemiparesis following cerebral infarction affecting right dominant side; N18.6 End stage renal disease; G40.909 Epilepsy, unspecified, not intractable, without status epilepticus; K74.60 Unspecified cirrhosis of liver; R65.20 Severe sepsis without septic shock; B19.20 Unspecified viral hepatitis C without hepatic coma; D53.9 Nutritional anemia, unspecified; D75.89 Other specified diseases of blood and blood-forming organs; Z66 Do not resuscitate; E87.1 Hypo-osmolality and hyponatremia; E87.2 Acidosis; E87.6 Hypokalemia; F03.90 Unspecified dementia, unspecified severity, without behavioral disturbance, psychotic disturbance, mood disturbance, and anxiety; F20.9 Schizophrenia, unspecified; I25.10 Atherosclerotic heart disease of native coronary artery without angina pectoris; I49.3 Ventricular premature depolarization; I50.9 Heart failure, unspecified; J44.0 Chronic obstructive pulmonary disease with (acute) lower respiratory infection; R13.10 Dysphagia, unspecified; R18.8 Other ascites; E87.8 Other disorders of electrolyte and fluid balance, not elsewhere classified; R62.7 Adult failure to thrive; R64 Cachexia; Z20.828 Contact with and (suspected) exposure to other viral communicable diseases; D69.6 Thrombocytopenia, unspecified; Z51.5 Encounter for palliative care; K21.9 Gastro-esophageal reflux disease without esophagitis; Z79.899 Other long term (current) drug therapy; Z99.2 Dependence on renal dialysis
CPT/HCPCS: 36415; 36600; 49083; 71045; 74018; 76705; 76937; 80048; 80053; 80061; 80076; 80202; 81003; 82140; 82270; 82375; 82805; 82962; 83605; 83615; 83735; 83880; 84100; 84132; 84145; 84478; 84484; 85014; 85018; 85025; 86705; 86706; 86709; 86803; 87340; 88108; 88312; 92610; 93005; 94002; 94003; 94640; 96365; 96375; 99291; A6261; C1725; C1752; J0330; J0690; J0885; J1100; J1450; J1644; J1650; J1815; J1940; J1956; J2060; J2175; J2248; J2270; J2370; J2405; J2543; J2704; J2710; J2765; J3370; J3480; J3490; J7050; J7060; J7070; U0003